=== PATIENT | female | born 1950 | race Caucasian/White ===

== ENCOUNTER 2023-11-23 13:52 | Emergency (ER) | payer MEDICARE, MEDICAID, SELFPAY ==
--- NOTE | ~2023-11-23 | XR_ITS ---
XR chest 2V Ordering provider: Kenya Tyson MD History: 73 years Female with . cough, SOB . Comparison: None. FINDINGS: MEDIASTINUM: The cardiac silhouette is not enlarged. LUNGS: No effusions or pneumothorax. Opacification the right lung bases suggestive of atelectasis guillermo loc pneumonia. OTHER: No free air under the diaphragm. Degenerative changes of the spine. IMPRESSION: Right basal pneumonia. Reviewed, dictated and finalized at location A. IMPRESSION: Right basal pneumonia.
[2023-11-23 13:54] VITALS: BP 144/69; PULSE 95; RESP 20; TEMP 37.2; O2SAT 100
[2023-11-23 14:27] VITALS: RESP 16
[2023-11-23 14:30] LABS: Strep Group A RT-PCR NOT DETECTED (Negative)
[2023-11-23 14:41] LABS: Influenza A QL RT-PCR Negative (Negative); Influenza B QL RT-PCR Negative (Negative); RSV RNA, RT-PCR Negative (Negative); SARS-CoV-2 RNA PCR Negative (Negative)
--- NOTE | 2023-11-23 14:47 | ED.FEVER ---
HPI - Fever General Chief Complaint: Fever Stated Complaint: fever Time Seen by Provider: 11/23/23 14:33 History of Present Illness HPI Narrative: 73-year-old female presenting with URI symptoms. Patient's family is at bedside and helps with history. States that she developed symptoms the dates ago. She has a sore throat, cough, nausea, generalized fatigue. States she has upper abdominal pain whenever she coughs. No chest pain or shortness of breath. No leg swelling. Related Data Allergies Allergy/AdvReac Type Severity Reaction Status Date / Time No Known Allergies Allergy Verified 11/23/23 14:16 Review of Systems Review of Systems: All systems reviewed & are unremarkable except as noted in HPI and below Exam Narrative: GENERAL: Nontoxic, no acute distress, pleasant cooperative HEAD: Normocephalic, atraumatic. EYES: PERRLA and EOMI. ENT: Mucous membranes moist. No posterior pharyngeal erythema, edema, or exudates; s/p tonsillectomy NECK: Supple. CHEST: Clear to auscultation. No respiratory distress. HEART: Regular rate and rhythm ABDOMEN: Soft, nontender, nondistended EXTREMITIES: Normal range of motion. SKIN: Warm, dry, no rash. NEURO: Alert and oriented x3. PSYCH: Normal mood and affect. Course Vital Signs Vital signs: Vital Signs Temperature 99 F 11/23/23 13:54 Pulse Rate 95 11/23/23 13:54 Respiratory Rate 20 11/23/23 13:54 Blood Pressure 144/69 H 11/23/23 13:54 Pulse Oximetry 100 11/23/23 13:54 Oxygen Delivery Room Air 11/23/23 13:54 Temperature 99 F 11/23/23 13:54 Pulse Rate 92 11/23/23 17:17 Respiratory Rate 16 11/23/23 17:17 Blood Pressure 120/77 11/23/23 17:17 Pulse Oximetry 96 11/23/23 17:17 Oxygen Delivery Room Air 11/23/23 13:54 MDM - Fever MDM Narrative Medical decision making narrative: 73-year-old female presenting with URI symptoms. Vitals are within normal limits. Exam remarkable for the above. Blood work with mild transaminitis. No other abnormalities noted. Negative for strep, influenza, COVID. Chest x-ray shows a right basilar pneumonia. Patient given a dose of doxy, Augmentin. Will send in for these as well as some Zofran. Discussed appropriate supportive care and PCP follow-up. Patient and her family are agreeable with this plan. Discharged in stable condition. Differential Diagnosis Differential diagnosis: Likely gastroenteritis, community acquired pneumonia, viral infection and influenza Medical Records Attestation: I reviewed the patient's medical records. Lab Data Attestation: I reviewed the patient's lab results. 11/23/23 14:52 11/23/23 14:52 Labs: Lab Results 11/23/23 11/23/23 Range/Units 13:59 14:52 WBC 9.8 (4.5-10.0) K/mm3 RBC 4.55 (4.2-5.4) M/mm3 Hgb 13.4 (12.0-15.0) g/dL Hct 40.3 (37.0-47.0) % MCV 88.6 (80-100) fl MCH 29.5 (26-34) pg MCHC 33.3 (32-36) g/dl RDW 13.7 (11.5-14.5) % Plt Count 176 (150-375) k/mm3 MPV 12.8 H (7.4-10.4) fl Immature Gran % (Auto) 0.2 (0-0.5) % Neut % (Auto) 82.4 H (45.5-73.1) % Lymph % (Auto) 8.4 L (18.3-44.2) % [place] % (Auto) 8.4 (2.6-8.5) % Eos % (Auto) 0.3 (0-4.4) % Baso % (Auto) 0.3 (0.2-1.2) % Lymph # (Auto) 0.82 L (0.9-3.2) K/mm3 [place] # (Auto) 0.8 H (0.1-0.6) K/mm3 Eos # (Auto) 0.0 (0-0.3) K/mm3 Baso # (Auto) 0.0 (0.0-0.1) K/mm3 Abs Immat Gran (auto) 0.02 (0.00-0.031) K/mm3 Absolute Neuts (auto) 8.1 H (1.3-6.7) K/mm3 Absolute Nucleated RBC 0.000 (0.0-0.012) K/mm3 Nucleated RBC % 0.0 (0.0-0.2) % Sodium 135 L (137-145) mmol/L Potassium 4.0 (3.4-5.0) mmol/L Chloride 103 (98-107) mmol/L Carbon Dioxide 22 (22-30) mmol/L Anion Gap 10 (4-12) mmol/L BUN 8 (7-17) mg/dL Creatinine 0.70 (0.7-1.0) mg/dL Estim Creat Clear Calc 46 ml/min Estimated GFR > 60 (59 - ) Glucose 111 H (65-110) mg/dL Calcium 9.4 (8.4-10.
[2023-11-23 14:59] LABS: Basophils Percent Auto 0.3 % (0.2-1.2); Eosinophils Percent Auto 0.3 % (0-4.4); Hematocrit 40.3 % (37.0-47.0); Hemoglobin 13.4 g/dL (12.0-15.0); Immature Granulocyte Absolute 0.02 K/mm3 (0.00-0.031); Immature Granulocyte Percent A 0.2 % (0-0.5); Lymphocytes Absolute Auto 0.82 K/mm3 (0.9-3.2); Lymphocytes Percent Auto 8.4 % (18.3-44.2); Mean Corpuscular HGB Conc 33.3 g/dl (32-36); Mean Corpuscular Hemoglobin 29.5 pg (26-34); Mean Corpuscular Volume 88.6 fl (80-100); Mean Platelet Volume 12.8 fl (7.4-10.4); Monocytes Absolute Auto 0.8 K/mm3 (0.1-0.6); Monocytes Percent Auto 8.4 % (2.6-8.5); Neutrophils Absolute Auto 8.1 K/mm3 (1.3-6.7); Neutrophils Percent Auto 82.4 % (45.5-73.1); Platelet Count Result 176 k/mm3 (150-375); Red Blood Count 4.55 M/mm3 (4.2-5.4); Red Cell Distribution Width 13.7 % (11.5-14.5); White Blood Count 9.8 K/mm3 (4.5-10.0)
[2023-11-23 15:07] LABS: Alanine Aminotransferase 93 U/L (6-35); Albumin Level 4.5 g/dL (3.5-5.1); Alkaline Phosphatase 121 U/L (38-126); Anion Gap 10 mmol/L (4-12); Aspartate Amino Transferase 90 U/L (14-36); Bilirubin,Total 0.5 mg/dL (0.2-1.3); Blood Urea Nitrogen 8 mg/dL (7-17); Calcium 9.4 mg/dL (8.4-10.2); Carbon Dioxide 22 mmol/L (22-30); Chloride 103 mmol/L (98-107); Estimated CRCL calculation 46 ml/min; Estimated Glomerular Filt Rate > 60; Glucose 111 mg/dL (65-110); Lipase 197 U/L (23-300); Sodium 135 mmol/L (137-145)
[2023-11-23] MEDS: SODIUM CHLORIDE 0.9% IV 1,000 ML 999 ML IV CONT ×2 (15:07→15:08)
[2023-11-23] MEDS: dexAMETHasone SOD PHOS INJ 10 MG/ML 1 ML VIAL IV PUSH (15:08)
[2023-11-23] MEDS: ONDANSETRON INJ 4 MG/2 ML VIAL IV PUSH (15:08)
[2023-11-23] MEDS: KETOROLAC 30 MG/ML VIAL (*BKC) IV PUSH (15:08)
[2023-11-23] MEDS: DOXYCYCLINE HYCLATE 100 MG TABLET PO (16:37)
[2023-11-23] MEDS: AMOXICILLIN/CLAVULANATE K 875-125 MG TAB 1 TABLET PO (16:37)
[2023-11-23 17:17] VITALS: BP 120/77; PULSE 92; RESP 16; O2SAT 96
== END 2023-11-23 17:20 | disposition home or self-care (01) ==
PROVIDERS: Emergency Medicine; Emergency Provider Emergency Medicine
DX: J18.9 Pneumonia, unspecified organism (principal); Z20.822 Contact with and (suspected) exposure to COVID-19
CPT/HCPCS: 36415; 71046; 80053; 83690; 85025; 87637; 87651; 96361; 96374; 96375; 99284; A9270; J1100; J1885; J2405; J7030

== ENCOUNTER 2024-07-12 14:53 | Outpatient (CLI) | payer MEDICARE, MEDICAID, SELFPAY ==
--- NOTE | ~2024-07-12 | MM_ITS ---
EXAMINATION: MM screening jeremias BI w nicky HISTORY: Screening mammogram TECHNIQUE: Craniocaudal and mediolateral oblique 3-D tomosynthesis images were obtained and synthetic 2-D images were generated. CAD analysis was submitted and interpreted. COMPARISON: No prior mammogram is available for comparison at this institution. BREAST PARENCHYMAL COMPOSITION:Not Dense. The breasts are almost entirely fatty FINDINGS: No suspicious mass, calcification, or architectural distortion are identified in either mik ast to suggest malignancy. There has been no suspicious interval change. IMPRESSION: No mammographic evidence of malignancy. Recommend routine screening mammography in one year. BI-RADS Category 1: Negative Reviewed, dictated and finalized at location .
--- OUTSIDE RECORDS SUMMARY | 2024-07-12 16:58 | XMS_ITS ---
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 [address] [place] [address] 01/20/2024 Jossue Junior Chronic kidney disea se, stage 2 (mild) N18.2 ; Essential hypertension I10 ; Type 2 diabetes mellitus with hyperglycemia E11.65 ; Renal osteodystrophy N25.0 ; Hyperlipidemia, unspecified E78.5 ; Heart failure, unspecified I50.9 and Gastro-esophageal reflux disease with esophagitis, without bleeding K21.00 ASSESSMENTS Encounter Date Diagnosis Assessment Notes Treatment Notes Treatment Clinical Notes Section Notes 01/20/2024 Chronic kidney disease, stage 2 (mild) (ICD-10 - N18.2) 01/20/2024 Essential hypertension (ICD-10 - I10) 01/20/2024 Type 2 diabetes mellitus with hyperglycemia (ICD-10 - E11.65) 01/20/2024 Renal osteodystrophy (ICD-10 - N25.0) 01/20/2024 Hyperlipidemia, unspecified (ICD-10 - E78.5) 01/20/2024 Heart failure, unspecified (ICD-10 - I50.9) 01/20/2024 Gastro-esophageal reflux disease with esophagitis, without bleeding (ICD-10 - K21.00) PLAN OF TREATMENT Next Appt Details Provider Name:Jossue Junior , 08/05/2024 01:30:00 PM, [address], [place], [address], Progress Notes * JOHN ARCINIEGADOB: [birth year] (73 yo F)Acc No.[id number]:01/20/2024 Progress Notes Patient: JOHN ARCINIEGA Provider: MD VIRGIE, F.A.C.P, F.A.S.N. :1950 Age:73 Y Sex:Female Date:01/20/2024 Address:[address] [place] [address] Subjective: * Chief Complaints: * * Medical History: * Medications: Taking Ergocalciferol 1.25 MG (48879 UT) Capsule 1 capsule Orally Once a week , stop date 04/09/2024, Taking Calcitriol 0.25 MCG Capsule TAKE 1 CAPSULE BY MOUTH EVERY DAY Objective: Assessment: * Assessment: 1. Chronic kidney disease, stage 2 (mild) - N18.2 (Primary) 2. Essential hypertension - I10 3. Type 2 diabetes mellitus with hyperglycemia - E11.65 4. Renal osteodystrophy - N25.0 5. Hyperlipidemia, unspecified - E78.5 6. Heart failure, unspecified - I50.9 7. Gastro-esophageal reflux disease with esophagitis, without bleeding - K21.00 Plan: * Treatment: * Billing Information: * Visit Code: 66516 Office Visit, Est Pt., Level 4. * Procedure Codes: * Sign off status: Pending * Provider: MD VIRGIE, Gilma.Markell.C.P, F.A.S.N. Date: 01/20/2024
--- OUTSIDE RECORDS SUMMARY | 2024-07-12 16:58 | XMS_ITS | Data Portability ---
Author Organization [facility] SADIEPo Dillard Address [address] [place] [address] Assessment No assessment recorded. Plan of Treatment Reminders Order Date Submit Date Provider Last Modified By Organization Details Last Modified Time Details Appointments None recorded. Lab HbA1c (hemoglobi n A1c), blood 2019 020 [facility], [address] [place] [address], [facility] [address], [place], [address], 0 06:21:10 vitamin D, 25-hydroxy , total, serum 2019 020 [facility], [address] [place] [address], [address], [place], [address], 0 06:21:10 vitamin B12 + folate, serum or blood 2019 020 [facility], [address] [place] [address], [facility] [address], [place], [address], 0 06:21:09 TSH + free T4, serum 2019 020 [facility], [address] [place] [address], [address], [place], [address], 0 06:21:08 CMP, serum or plasma 2019 020 [facility], [address] [place] [address], [address], [place], [address], 0 06:21:08 lipid panel, serum 2019 020 MICHELLE DAY, [address], [address], [place], [address], 0 06:21:09 CK (creatine kinase), total, serum 2019 020 MICHELLE DAY, [address], [address], [place], [address], 0 06:21:11 urinalysis , dipstick 2018 019 [email or web address] In-Office Order, Internal Use Only DO Not Attach Compendium DO Not Attach Compendium, Do Not Delete/merge, [id number] 9 12:40:50 culture, urine 2018 019 MICHELLE DAY, [address], [address], [place], [address], 9 19:07:16 vitamin D, 25-hydroxy , total, serum 2018 019 MICHELLE DAY, [address], [address], [place], [address], 9 06:18:43 TSH + free T4, serum 2018 019 MICHELLE DAY, [address], [address], [place], [address], 9 06:18:42 CBC w/ auto diff 2018 019 MICHELLE DAY, [address], [address], [place], [address], 9 06:18:42 vitamin D, 25-hydroxy , total, serum 2017 018 [facility], [address], [address], [place], [address], 8 06:17:49 TSH + free T4, serum 2017 018 [facility], [address], [address], [place], [address], 8 06:17:47 CMP, serum or plasma 2017 018 [facility], [address], [address], [place], [address], 8 06:17:48 lipid panel, serum 2017 018 [facility], [address], [address], [place], [address], 8 06:17:48 CK (creatine kinase), total, serum 2017 018 [facility], [address], [address], [place], [address], 8 06:17:49 TSH + free T4, serum 2017 018 [facility], [address], [place], [address], 8 17:15:14 CBC w/ auto diff 2017 018 [facility], [address], [place], [address], 8 17:15:14 Referral None recorded. Procedures None recorded. Surgeries None recorded. Imaging XR, chest, 2 view [address] (Imaging), [address] [place], [address], 8 17:07:09 Medication Orders ciprofloxa jose l 500 mg tablet 2019 020 [facility] [address], [address], 0 17:13:59 benzonatat e 200 mg capsule 2019 020 [facility] [address], [address], 0 17:20:47 carvedilol 6.25 mg tablet 2019 020 [facility] [address], [address], 0 17:20:50 omeprazole 20 mg capsule,de layed release 2019 020 [facility] [address], [address], 0 17:20:47 lovastatin 20 mg tablet 2019 020 [facility] [address], [address], 0 17:20:51 Macrobid 100 mg capsule 2018 019 [facility] [address], [address], 9 12:01:50 promethazi ne-DM 6.25 mg-15 mg/5 mL oral syrup 2018 019 [email or web address] [address], [address], 9 11:14:54 lovastatin 20 mg tablet 2018 019 [facility] In [facility] [address] [place] [address], [address], 9 12:09:57 Aspir-Low 81 mg tablet,del ayed release 2017 018 [facility] [address] In [facility], [address] [place] [address], [address], 8 13:11:21 ergocalcif enrrique (vitamin D2) 1,250 mcg (50,000 unit) capsule 2017 018 [facility] [address], [address], 8 13:11:16 carvedilol 6.25 mg tablet 2017 018 [facility] [address], [address], 8 13:11:19 omeprazole 20 mg capsule,de layed release 2017 018 [facility] [address], [address], 8 13:11:17 lovastatin 20 mg tablet 2017 018 [facility] [address], [address], 8 13:11:18 levocetiri zine 5 mg tablet 2017 018 [facility] [address], [address], 8 17:05:29 azithromyc in 250 mg tablet 2017 018 [email or web address] [address], [address], 8 12:53:01 Patient TargetsNo targets recorded. Patient Instructions Encounter Date Encounter Id Patient Instructions Last Modified By Organization Details Last Modified Time 12/02/2018 [id number] I have reviewed the provider's note and I agree with the documented assessment and plan. HLF [email or web address] Not available 12/02/2018 17:58:17 Reason for Referral None Reported. Results Created Date Observation Date Name Description Value Unit Range Abnormal Flag Note LastModifiedBy Organization Detail LastModifiedTime 09/04/19 18 09/04/2017 HbA1c (hemo globi n A1c), blood hemoglobin A1C 5.9 % 4.8-5. 6 above high normal Pre-d iabet es: 5.7 - 6.4 Diabe dany: >6.4 Glyce jenna contr ol for adult s with diabe dany: <7.0 Not Available [facility] ([facility]) [address] [place], [address], 09/04/2017 07:17:01 03/15/20 18 03/16/2018 TSH + free T4, serum TSH 1.450 uIU/m L 0.450- 4.500 Not Available [facility] ([facility]) [address] [place], [address], 03/16/2018 06:17:47 03/15/20 18 03/16/2018 TSH + free T4, serum T4,free(dire ct) 1.17 NG/dL 0.82-1 .77 Not Available [facility] ([facility]) [address] [place], [address], 03/16/2018 06:17:47 03/15/20 18 03/16/2018 CMP, serum or plasm a glucose 104 mg/dL 65-99 above high normal Not Available [facility] ([facility]) [address] [place], [address], 03/16/2018 06:17:48 03/15/20 18 03/16/2018 CMP, serum or plasm a BUN 14 mg/dL 8-27 Not Available [facility] ([facility]) [address] [place], [address], 03/16/2018 06:17:48 03/15/20 18 03/16/2018 CMP, serum or plasm a creatinine 0.78 mg/dL 0.57-1 .00 Not Available [facility] ([facility]) [address] [facility] [place], [address], 03/16/2018 06:17:48 03/15/20 18 03/16/2018 CMP, serum or plasm a eGFR if nonafricn AM 80 mL/mi n/1.7 3 >59 Not Available [facility] ([facility]) [address] [facility] [place], [address], 03/16/2018 06:17:48 03/15/20 18 03/16/2018 CMP, serum or plasm a eGFR if africn AM 92 mL/mi n/1.7 3 >59 Not Available [facility] ([facility]) [address] [facility], [place], [address], 03/16/2018 06:17:48 03/15/20 18 03/16/2018 CMP, serum or plasm a BUN/creatini ne ratio 18 12-28 Not Available [facility] ([facility]) [address] [place], [address], 03/16/2018 06:17:48 03/15/20 18 03/16/2018 CMP, serum or plasm a sodium 142 mmol/ L 134-14 4 Not Available [facility] ([facility]) [address] [place], [address], 03/16/2018 06:17:48 03/15/20 18 03/16/2018 CMP, serum or plasm a potassium 4.2 mmol/ L 3.5-5. 2 Not Available [facility] ([facility]) [address] [place] [address], [address], 03/16/2018 06:17:48 03/15/20 18 03/16/2018 CMP, serum or plasm a chloride 103 mmol/ L 96-106 Not Available [facility] ([facility]) [address] [facility] [place], [address], 03/16/2018 06:17:48 03/15/20 18 03/16/2018 CMP, serum or plasm a carbon dioxide, total 23 mmol/ L 20-29 Not Available [facility] ([facility]) [address] [facility] [place], [address], 03/16/2018 06:17:48 03/15/20 18 03/16/2018 CMP, serum or plasm a calcium 9.6 mg/dL 8.7-10 .3 Not Available [facility] ([facility]) [address] [facility] [place], [address], 03/16/2018 06:17:48 03/15/20 18 03/16/2018 CMP, serum or plasm a protein, total 7.1 g/dL 6.0-8. 5 Not Available [facility] ([facility]) [address] [place], [address], 03/16/2018 06:17:48 03/15/20 18 03/16/2018 CMP, serum or plasm a albumin 4.5 g/dL 3.6-4. 8 Not Available [facility] ([facility]) [address] [place], [address], 03/16/2018 06:17:48 03/15/20 18 03/16/2018 CMP, serum or plasm a globulin, total 2.6 g/dL 1.5-4. 5 Not Available [facility] ([facility]) [address] [facility] [place], [address], 03/16/2018 06:17:48 03/15/20 18 03/16/2018 CMP, serum or plasm a A/G ratio 1.7 1.2-2. 2 Not Available [facility] ([facility]) [address] [place], [address], 03/16/2018 06:17:48 03/15/20 18 03/16/2018 CMP, serum or plasm a bilirubin, total 0.5 mg/dL 0.0-1. 2 Not Available [facility] ([facility]) [address] [facility] [place], [address], 03/16/2018 06:17:48 03/15/20 18 03/16/2018 CMP, serum or plasm a alkaline phosphatase 69 IU/L 39-117 Not Available [facility] ([facility]) [address] [facility] [place], [address], 03/16/2018 06:17:48 03/15/20 18 03/16/2018 CMP, serum or plasm a AST (SGOT) 21 IU/L 0-40 Not Available [facility] ([facility]) [address] [facility] [place], [address], 03/16/2018 06:17:48 03/15/20 18 03/16/2018 CMP, serum or plasm a ALT (SGPT) 14 IU/L 0-32 Not Available [facility] ([facility]) [address] [place], [address], 03/16/2018 06:17:48 03/15/20 18 03/16/2018 lipid panel , serum cholesterol, total 180 mg/dL 100-19 9 Not Available [facility] ([facility]) [address] [place], [address], 03/16/2018 06:17:48 03/15/20 18 03/16/2018 lipid panel , serum triglyceride s 71 mg/dL 0-149 Not Available [facility] ([facility]) [address] [facility] [place], [address], 03/16/2018 06:17:48 03/15/20 18 03/16/2018 lipid panel , serum HDL cholesterol 65 mg/dL >39 Not Available [facility] ([facility]) [address] [place], [address], 03/16/2018 06:17:48 03/15/20 18 03/16/2018 lipid panel , serum VLDL cholesterol shame[place] 14 mg/dL 5-40 Not Available [facility] ([facility]) [address] [facility] [place], [address], 03/16/2018 06:17:48 03/15/20 18 03/16/2018 lipid panel , serum LDL cholesterol calc 101 mg/dL 0-99 above high normal Not Available [facility] ([facility]) [address] [facility] [place], [address], 03/16/2018 06:17:48 03/15/20 18 03/16/2018 lipid panel , serum comment: 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 2 LDL/H DL Ratio Men Women 1/2 Avg.R isk 1.0 1.5 Avg.R isk 3.6 3.2 2X Avg.R isk 6.2 5.0 3X Avg.R isk 8.0 6.1 Not Available [facility] ([facility]) [address] [place], [address], 03/16/2018 06:17:48 03/15/20 18 03/16/2018 vitam in D, 25-hy droxy , total , serum vitamin D, 25-hydroxy 31.3 NG/mL 30.0-1 00.0 Vitam in D defic iency has been defin ed by the Insti tute of Medic ine and an Endoc rine Socie ty pract ice guide line as a level of serum 25-OH vitam in D less than 20 ng/mL (1,2) . The Endoc rine Socie ty went on to furth er defin e vitam in D insuf ficie ncy as a level betwe en 21 and 29 ng/mL (2). 1. IOM (Inst itute of Medic ine). 2010. Dieta ry refer ence ximena es for calci um and DLeah almodovar [place]: [facility] . 2. Carlee pinto MF, Binbari ey [place], Bisch off-F errar i LIN, et al. Evalu ation , treat ment, and preve ntion of vitam in D defic iency : an Endoc rine Socie ty clini [place] pract ice guide line. JCEM. 2010; 96(7) :1911 -30. Not Available [facility] ([facility]) [address] [place], [address], 03/16/2018 06:17:49 03/15/20 18 03/16/2018 CK (crea jany kinas e), total , serum creatine kinase,total 72 U/L 24-173 Not Available [facility] ([facility]) [address] [place], [address], 03/16/2018 06:17:49 06/10/1906/11/2018 TSH + free T4, serum TSH 1.910 uIU/m L 0.450- 4.500 Not Available [facility] ([facility]) [address] [place], [address], 06/11/2018 06:18:42 06/10/1906/11/2018 TSH + free T4, serum T4,free(dire ct) 1.20 NG/dL 0.82-1 .77 Not Available [facility] ([facility]) [address] [place], [address], 06/11/2018 06:18:42 06/10/1906/11/2018 CBC w/ auto diff WBC 6.4 x10e3 /uL 3.4-10 .8 Not Available [facility] ([facility]) [address] [place], [address], 06/11/2018 06:18:42 06/10/1906/11/2018 CBC w/ auto diff RBC 4.69 x10e6 /uL 3.77-5 .28 Not Available [facility] ([facility]) [address] [place], [address], 06/11/2018 06:18:42 06/10/19 19 06/11/2018 CBC w/ auto diff hemoglobin 14.0 g/dL 11.1-1 5.9 Not Available [facility] ([facility]) [address] [place], [address], 06/11/2018 06:18:42 06/10/1906/11/2018 CBC w/ auto diff hematocrit 42.8 % 34.0-4 6.6 Not Available [facility] ([facility]) [address] [place], [address], 06/11/2018 06:18:42 06/10/1906/11/2018 CBC w/ auto diff MCV 91 fL 79-97 Not Available [facility] ([facility]) [address] [place], [address], 06/11/2018 06:18:42 06/10/1906/11/2018 CBC w/ auto diff MCH 29.9 pg 26.6-3 3.0 Not Available [facility] ([facility]) [address] [place], [address], 06/11/2018 06:18:42 06/10/1906/11/2018 CBC w/ auto diff MCHC 32.7 g/dL 31.5-3 5.7 Not Available [facility] ([facility]) [address] [place], [address], 06/11/2018 06:18:42 06/10/1906/11/2018 CBC w/ auto diff RDW 13.5 % 12.3-1 5.4 Not Available [facility] ([facility]) [address] [place], [address], 06/11/2018 06:18:42 06/10/19 19 06/11/2018 CBC w/ auto diff platelets 301 x10e3 /uL 150-37 9 Not Available [facility] ([facility]) [address] [facility], [place], [address], 06/11/2018 06:18:42 06/10/19 19 06/11/2018 CBC w/ auto diff neutrophils 56 % not estab. Not Available [facility] ([facility]) [address] [facility], [place], [address], 06/11/2018 06:18:42 06/10/1906/11/2018 CBC w/ auto diff lymphs 32 % not estab. Not Available [facility] ([facility]) [address] [facility], [place], [address], 06/11/2018 06:18:42 06/10/1906/11/2018 CBC w/ auto diff monocytes 11 % not estab. Not Available [facility] ([facility]) [address] [facility], [place], [address], 06/11/2018 06:18:42 06/10/1906/11/2018 CBC w/ auto diff eos 1 % not estab. Not Available [facility] ([facility]) [address] [facility], [place], [address], 06/11/2018 06:18:42 06/10/1906/11/2018 CBC w/ auto diff basos 0 % not estab. Not Available [facility] ([facility]) [address] [facility], [place], [address], 06/11/2018 06:18:42 06/10/1906/11/2018 CBC w/ auto diff immature cells TECHNICAL BUSINESS SYSTEMS ANALYST Not Available [facility] ([facility]) [address] [facility], [place], [address], 06/11/2018 06:18:42 06/10/1906/11/2018 CBC w/ auto diff neutrophils (absolute) 3.6 x10e3 /uL 1.4-7. 0 Not Available [facility] ([facility]) [address] [place], [address], 06/11/2018 06:18:42 06/10/19 19 06/11/2018 CBC w/ auto diff lymphs (absolute) 2.0 x10e3 /uL 0.7-3. 1 Not Available [facility] ([facility]) [address] [place], [address], 06/11/2018 06:18:42 06/10/1906/11/2018 CBC w/ auto diff monocytes(ab solute) 0.7 x10e3 /uL 0.1-0. 9 Not Available [facility] ([facility]) [address] [place], [address], 06/11/2018 06:18:42 06/10/1906/11/2018 CBC w/ auto diff eos (absolute) 0.0 x10e3 /uL 0.0-0. 4 Not Available [facility] ([facility]) [address] [place], [address], 06/11/2018 06:18:42 06/10/1906/11/2018 CBC w/ auto diff baso (absolute) 0.0 x10e3 /uL 0.0-0. 2 Not Available [facility] ([facility]) [address] [place], [address], 06/11/2018 06:18:42 06/10/1906/11/2018 CBC w/ auto diff immature granulocytes 0 % not estab. Not Available [facility] ([facility]) [address] [place], [address], 06/11/2018 06:18:42 06/10/1906/11/2018 CBC w/ auto diff immature grans (abs) 0.0 x10e3 /uL 0.0-0. 1 Not Available [facility] ([facility]) [address] [facility], [place], [address], 06/11/2018 06:18:42 06/10/1906/11/2018 CBC w/ auto diff NRBC TECHNICAL BUSINESS SYSTEMS ANALYST Not Available [facility] ([facility]) [address] [facility], [place], [address], 06/11/2018 06:18:42 06/10/1906/11/2018 CBC w/ auto diff hematology comments: TECHNICAL BUSINESS SYSTEMS ANALYST Not Available [facility] ([facility]) [address] [facility], [place], [address], 06/11/2018 06:18:42 06/10/1906/11/2018 vitam in D, 25-hy droxy , total , serum vitamin D, 25-hydroxy 27.7 NG/mL 30.0-1 00.0 below low normal Vitam in D defic iency has been defin ed by the Insti tute of Medic ine and an Endoc rine Socie ty pract ice guide line as a level of serum 25-OH vitam in D less than 20 ng/mL (1,2) . The Endoc rine Socie ty went on to furth er defin e vitam in D insuf ficie ncy as a level betwe en 21 and 29 ng/mL (2). 1. IOM (Inst itute of Medic ine). 2009. Hal ry refer ence ximena es for calci um and D. Maylin almodovar [place]: The Natio nal [facility] Press . 2. Carlee pinto MF, Haider cole [place], Salazar off-F errar i LIN, et al. Evalu ation , treat ment, and preve ntion of vitam in D defic iency : an Endoc rine Socie ty clini [place] pract ice guide line. JCEM. 2010; 96(7) :1911 -30. Not Available [facility] ([facility]) [address] [facility], [place], [address], 06/11/2018 06:18:43 12/03/1912/03/2018 no test indic ated . Commdorys t A urine was recei lisseth with no test indic ated Not Available [facility] ([facility]) [address], [place], [address], 12/03/2018 17:08:28 12/03/19 19 12/03/2018 no test indic ated dear doctor, Brent ellsworth The requi sitio n we recei lisseth for the above patie nt has no test indic ated on the reque st form for one or more of the speci mens submi tted. [place] Code of [place] Regul ation s requi res a writt en and kenisha d reque st be forwa rded to the testi ng labor atory follo wing the verba l order of a labor atory test. Date: ___ ICD- Diagn osis Code( s):__ _ Physi demi or Autho rized Desjimmie nee Signa ture: Your signa ture confi angelica your order of the test( s) liste d Requi red test name( s):__ _ Requi red test numbe r(s): _ Pleas e provi de reque sted infor ariadna reddy and fax to [phone] or [phone] to exped billye melissa reid. Not Available [facility] ([facility]) [address] [facility], [place], [address], 12/03/2018 17:08:28 12/03/19 19 12/05/2018 cultu re, urine urine culture, routine Final report abnormal Not Available [facility] ([facility]) [address] [facility], [place], [address], 12/05/2018 19:07:16 12/03/1912/05/2018 cultu re, urine result 1 Escher ichia coli abnormal Great er than 100,0 00 colon y formi ng units per mL Cefaz suzette <=4 ug/mL Cefaz suzette with an JENNA <=16 predi cts susce ptibi lity to the oral agent s cefac diana, cefdi laury, cefpo doxim e, cefpr ozil, cefur oxime , cepha lexin , and lorac arbef when used for thera py of uncom plica natacha urina ry tract infec tions due to E. coli, Klebs iella pneum oniae , and Prote us mirab ilis. Not Available [facility] ([facility]) [address] [facility], [place], [address], 12/05/2018 19:07:16 12/03/19 19 12/05/2018 cultu re, urine antimicrobia l susceptibili ty Commen t S = Susce ptibl e; I = Inter media te; R = Resis tant P = Posit derek; N = Negat derek MICS are expre ssed in micro grams per mL Antib iotic RSLT# 1 RSLT# 2 RSLT# 3 RSLT# 4 Amoxi cilli n/Cla vulan ic Acid S Ampic illin R Cefep brenda S Ceftr iaxon e S Cefur oxime S Cipro floxa jose l S Ertap enem S Genta micin S Imipe nem S Levof loxac in S Merop enem S Nitro furan toin S Piper acill in/Ta zobac rene S Tetra cycli ne S Tobra mycin S Trime thopr im/Maldonado lfa R Not Available [facility] ([facility]) [address] [facility], [place], [address], 12/05/2018 19:07:16 12/03/1912/02/2018 urina lysis , dipst ick Leukocytes Large Not Available In-Offi ce Order Internal Use Only DO Not Attach Compendium DO Not Attach Compendium, Do Not Delete/merge, [id number] 12/02/2018 11:41:06 12/03/1912/02/2018 urina lysis , dipst ick Nitrite negati ve Not Available In-Office Order Internal Use Only DO Not Attach Compendium DO Not Attach Compendium, Do Not Delete/merge, [id number] 12/02/2018 11:41:06 12/03/1912/02/2018 urina lysis , dipst ick Urobilinogen .2 Not Available In-Of fice Order Internal Use Only DO Not Attach Compendium DO Not Attach Compendium, Do Not Delete/merge, [id number] 12/02/2018 11:41:06 12/03/1912/02/2018 urina lysis , dipst ick Protein Negati ve Not Available In-Office Order Internal Use Only DO Not Attach Compendium DO Not Attach Compendium, Do Not Delete/merge, [id number] 12/02/2018 11:41:06 12/03/1912/02/2018 urina lysis , dipst ick pH 6.0 Not Available In-Office Order Internal Use Only DO Not Attach Compendium DO Not Attach Compendium, Do Not Delete/merge, [id number] 12/02/2018 11:41:12/03/1912/02/2018 urina lysis , dipst ick Blood Non-He molyze d: Trace Not Available In-Office Order Internal Use Only DO Not Attach Compendium DO Not Attach Compendium, Do Not Delete/merge, [id number] 12/02/2018 11:41:06 12/03/1912/02/2018 urina lysis , dipst ick Specific [place] 1.005 Not Available In-Off ice Order Internal Use Only DO Not Attach Compendium DO Not Attach Compendium, Do Not Delete/merge, [id number] 12/02/2018 11:41:06 12/03/1912/02/2018 urina lysis , dipst ick Ketone Negati ve Not Available In-Office Order Internal Use Only DO Not Attach Compendium DO Not Attach Compendium, Do Not Delete/merge, [id number] 12/02/2018 11:41:06 12/03/1912/02/2018 urina lysis , dipst ick Bilirubin Negati ve Not Available In-Office Order Internal Use Only DO Not Attach Compendium DO Not Attach Compendium, Do Not Delete/merge, [id number] 12/02/2018 11:41:06 12/03/19 19 12/02/2018 urina lysis , dipst ick Glucose Negati ve Not Available In-Office Order Internal Use Only DO Not Attach Compendium DO Not Attach Compendium, Do Not Delete/merge, [id number] 12/02/2018 11:41:06 12/03/1912/02/2018 urina lysis , dipst ick Appearance Slight ly Cloudy Not Available In-Office Order Internal Use Only DO Not Attach Compendium DO Not Attach Compendium, Do Not Delete/merge, [id number] 12/02/2018 11:41:06 12/03/1912/02/2018 urina lysis , dipst ick Color Yellow Not Available In-Office Order Internal Use Only DO Not Attach Compendium DO Not Attach Compendium, Do Not Delete/merge, [id number] 12/02/2018 11:41:06 06/06/1906/07/2019 TSH + free T4, serum TSH 1.260 uIU/m L 0.450- 4.500 Not Available [facility] ([facility]) [address] [facility] [address], [place], [address], 06/07/2019 06:21:08 06/06/1906/07/2019 TSH + free T4, serum T4,free(dire ct) 1.01 NG/dL 0.82-1 .77 Not Available [facility] ([facility]) [address] [place], [address], 06/07/2019 06:21:08 06/06/1906/07/2019 CMP, serum or plasm a glucose 113 mg/dL 65-99 above high normal Not Available [facility] ([facility]) [address] [facility] [place], [address], 06/07/2019 06:21:08 06/06/1906/07/2019 CMP, serum or plasm a BUN 16 mg/dL 8-27 Not Available [facility] ([facility]) [address] [place], [address], 06/07/2019 06:21:08 06/06/1906/07/2019 CMP, serum or plasm a creatinine 0.87 mg/dL 0.57-1 .00 Not Available [facility] ([facility]) [address] [place], [address], 06/07/2019 06:21:08 06/06/1906/07/2019 CMP, serum or plasm a eGFR if nonafricn AM 70 mL/mi n/1.7 3 >59 Not Available [facility] ([facility]) [address] [place], [address], 06/07/2019 06:21:08 06/06/1906/07/2019 CMP, serum or plasm a eGFR if africn AM 80 mL/mi n/1.7 3 >59 Not Available [facility] ([facility]) [address] [place], [address], 06/07/2019 06:21:08 06/06/1906/07/2019 CMP, serum or plasm a BUN/creatini ne ratio 18 12-28 Not Available [facility] ([facility]) [address] [place], [address], 06/07/2019 06:21:08 06/06/1906/07/2019 CMP, serum or plasm a sodium 142 mmol/ L 134-14 4 Not Available [facility] ([facility]) [address] [place], [address], 06/07/2019 06:21:08 06/06/1906/07/2019 CMP, serum or plasm a potassium 4.9 mmol/ L 3.5-5. 2 Not Available [facility] ([facility]) [address] [place], [address], 06/07/2019 06:21:08 06/06/1906/07/2019 CMP, serum or plasm a chloride 105 mmol/ L 96-106 Not Available [facility] ([facility]) [address] [place], [address], 06/07/2019 06:21:08 06/06/1906/07/2019 CMP, serum or plasm a carbon dioxide, total 22 mmol/ L 20-29 Not Available [facility] ([facility]) [address] [place], [address], 06/07/2019 06:21:08 06/06/1906/07/2019 CMP, serum or plasm a calcium 10.0 mg/dL 8.7-10 .3 Not Available [facility] ([facility]) [address] [place], [address], 06/07/2019 06:21:08 06/06/1906/07/2019 CMP, serum or plasm a protein, total 7.4 g/dL 6.0-8. 5 Not Available [facility] ([facility]) [address] [place], [address], 06/07/2019 06:21:08 06/06/1906/07/2019 CMP, serum or plasm a albumin 4.4 g/dL 3.8-4. 8 Ple ase note refer ence braden sullivan e Not Available [facility] ([facility]) [address] [place], [address], 06/07/2019 06:21:08 06/06/19 20 06/07/2019 CMP, serum or plasm a globulin, total 3.0 g/dL 1.5-4. 5 Not Available [facility] ([facility]) [address] [place], [address], 06/07/2019 06:21:08 06/06/19 20 06/07/2019 CMP, serum or plasm a A/G ratio 1.5 1.2-2. 2 Not Available [facility] ([facility]) [address] [place], [address], 06/07/2019 06:21:08 06/06/19 20 06/07/2019 CMP, serum or plasm a bilirubin, total 0.6 mg/dL 0.0-1. 2 Not Available [facility] ([facility]) [address] [place], [address], 06/07/2019 06:21:08 06/06/19 20 06/07/2019 CMP, serum or plasm a alkaline phosphatase 83 IU/L 39-117 Not Available [facility] ([facility]) [address] [place], [address], 06/07/2019 06:21:08 06/06/19 20 06/07/2019 CMP, serum or plasm a AST (SGOT) 22 IU/L 0-40 Not Available [facility] ([facility]) [address] [place], [address], 06/07/2019 06:21:08 06/06/1906/07/2019 CMP, serum or plasm a ALT (SGPT) 22 IU/L 0-32 Not Available [facility] ([facility]) [address] [place], [address], 06/07/2019 06:21:08 06/06/19 20 06/07/2019 lipid panel , serum cholesterol, total 195 mg/dL 100-19 9 Not Available [facility] ([facility]) [address] [facility] [place], [address], 06/07/2019 06:21:09 06/06/19 20 06/07/2019 lipid panel , serum triglyceride s 106 mg/dL 0-149 Not Available [facility] ([facility]) [address] [place], [address], 06/07/2019 06:21:09 06/06/19 20 06/07/2019 lipid panel , serum HDL cholesterol 59 mg/dL >39 Not Available [facility] ([facility]) [address] [facility] [place], [address], 06/07/2019 06:21:09 06/06/19 20 06/07/2019 lipid panel , serum VLDL cholesterol [place] 21 mg/dL 5-40 Not Available [facility] ([facility]) [address] [place], [address], 06/07/2019 06:21:09 06/06/19 20 06/07/2019 lipid panel , serum LDL cholesterol calc 115 mg/dL 0-99 above high normal Not Available [facility] ([facility]) [address] [place], [address], 06/07/2019 06:21:09 06/06/19 20 06/07/2019 lipid panel , 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 2 LDL/H DL Ratio Men Women 1/2 Avg.R isk 1.0 1.5 Avg.R isk 3.6 3.2 2X Avg.R isk 6.2 5.0 3X Avg.R isk 8.0 6.1 Not Available [facility] ([facility]) [address] [place], [address], 06/07/2019 06:21:09 06/06/19 20 06/07/2019 vitam in B12 + folat e, serum or blood vitamin B12 672 pg/mL 232-12 45 Not Available [facility] ([facility]) [address], [place], [address], 06/07/2019 06:21:09 06/06/1906/07/2019 vitam in B12 + folat e, serum or blood folate (folic acid), serum 15.2 NG/mL >3.0 A serum folat e rickie ntrat ion of less than 3.1 ng/mL is consi dered to repre sent clini [place] defic iency . Not Available [facility] ([facility]) [address], [place], [address], 06/07/2019 06:21:09 06/06/1906/06/2019 HbA1c (hemo globi n A1c), blood hemoglobin A1C 5.8 % 4.8-5. 6 above high normal Predi abete s: 5.7 - 6.4 Diabe dany: >6.4 Glyce jenna contr ol for adult s with diabe dany: <7.0 Not Available [facility] ([facility]) [address], [place], [address], 06/07/2019 06:21:10 06/06/1906/07/2019 vitam in D, 25-hy droxy , total , serum vitamin D, 25-hydroxy 21.6 NG/mL 30.0-1 00.0 below low normal Vitam in D defic iency has been defin ed by the Insti tute of Medic ine and an Endoc rine Socie ty pract ice guide line as a level of serum 25-OH vitam in D less than 20 ng/mL (1,2) . The Endoc rine Socie ty went on to furth er defin e vitam in D insuf ficie ncy as a level betwe en 21 and 29 ng/mL (2). 1. IOM (Inst itute of Medic ine). 2009. Dieta ry refer ence intak es for calci um and D. Maylin almodovar [place]: [facility] Press . 2. Carlee pinto MF, Haider cole [place], Salazar off-F errar i LIN, et al. Evalu ation , treat ment, and preve ntion of vitam in D defic iency : an Endoc rine Socie ty clini [place] pract ice guide line. JCEM. 2010; 96(7) :1911 -30. Not Available [facility] ([facility]) [address] [facility] [address], [place], [address], 06/07/2019 06:21:10 06/06/19 20 06/07/2019 CK (crea jany kinas e), total , serum creatine kinase,total 76 U/L 24-173 Not Available [facility] ([facility]) [address] [facility] [address], [place], [address], 06/07/2019 06:21:11 06/01/19 19 05/31/2018 XR, chest , 2 view No observ ation record ed. [facility] (Imaging) [address] [place], [address], 06/08/2018 09:30:39 06/07/19 19 06/07/2018 trans -thor acic echoc ardio gram (TTE) (PROC ) No observ ation record ed. [facility] [address], [place], [address], 06/14/2018 14:51:20 12/13/19 20 12/13/2019 DEXA, axial skele ton No observ ation record ed. [address] (Imaging) [address] [place], [address], 01/17/2020 11:37:49 12/13/19 20 12/13/2019 MAMMO , scree petra, bilat eral No observ ation record ed. [address] (Imaging) [address] [place], [address], 01/17/2020 11:37:25 07/17/19 21 07/16/2020 XR, cervi shame[place] spine No observ ation record ed. [email or web address] [facility] [address] [place], [address], 07/19/2020 18:24:24 Result Notes None recorded. Problems Name Problem SNOMED Code Status Onset Date Resolution Date Notes Provider Name and Address Organization Details Recorded Time Cough 52646930 Active 2016 Not Available [facility] 2 13:59:03 Allergic rhinitis 25965337 Active 2017 Not Available [facility] 2 13:59:02 Laryngit is 03513688 Active 2017 Not Available [facility] 2 13:59:02 Fatigue 19146812 Active 2017 Not Available [facility] 2 13:59:02 High hemoglob in A1c level 692029824 Active 2017 Not Available [facility] 2 13:59:02 Cerebrov ascular accident 937854875 Completed 201806/10/2018 Mateo Rangel PA-C Attn: Accounting ,[address] [place], [address] , [place] - [facility] 9 11:54:50 Administ ration of tetanus vaccine Active 2018 Not Available [facility] 2 13:59:02 Administ ration of pneumoco ccal vaccine Active 2018 Not Available [facility] 2 13:59:02 Acute sinusiti s 69460961 Active 2019 Not Available [facility] 2 13:59:02 [facility] 07827168 Active Not Available [facility] 2 13:59:02 Gastroes ophageal reflux disease 126251166 Active Not Available [facility] 2 13:59:02 Low back pain 910134041 Active Not Available [facility] 2 13:59:02 Hyperlip idemia 14608899 Active Not Available [facility] 2 13:59:02 Hypergly cemia 40276189 Active Not Available [facility] 2 13:59:02 Osteopen ia 022013153 Active see bone density 0 Not Available [facility] 2 13:59:02 Vitamin D deficien cy 10059215 Active Not Available [facility] 2 13:59:02 Orthosta tic hypotens ion 87100332 Active Not Available [facility] 2 13:59:02 Upper abdomina l pain 12369697 Active Not Available [facility] 2 13:59:02 Palpitat ions 37625603 Active Not Available [facility] 2 13:59:02 Screenin g for malignan t neoplasm of colon Active 2016 Not Available [facility] 2 13:59:02 Problem Notes None recorded. Procedures Surgical History Date Name Laterality Status Provider Name and Address Organization Details Recorded Time Tonsillectomy completed Aubrey Felder [place] [facility] 06/05/2015 11:53:48 Imaging Results Imaging Date Name Status LastModified by Organization Details LastModified Time 05/31/2018 XR, chest, 2 view completed [facility] (Imaging) [address] [place], [address], 06/08/2018 09:30:39 06/07/2018 trans-thoracic echocardiogram (TTE) (PROC) completed [facility] [address], [place], [address], 06/14/2018 14:51:20 12/13/2019 DEXA, axial skeleton completed [address] (Imaging) [address] [place], [address], 01/17/2020 11:37:49 12/13/2019 MAMMO, screening, bilateral completed [address] (Imaging) [address] [place], [address], 01/17/2020 11:37:25 07/16/2020 XR, cervical spine completed [address] [place], [address], 07/19/2020 18:24:24 Procedure Notes None recorded. Medical Equipment None Reported. Allergies Allergen ID Allergen Name Allergen Category Reaction Reaction Severity Criticality Documentation Date Start Date Code Code System Note Provider Name and Address Organization Details Recorded Time 50607 simvastat in medicatio n arthralgi a (joint pain) moderate Not available 07/18/2015 84114 RxNorm Not Available Not Available Not Available Medications Name Sig Start Date Stop Date Status Note LastModified by Organization Details LastModified Time promethazin e-DM 6.25 mg-15 mg/5 mL oral syrup Take 5 mL every 6 hours by oral route for 10 days. 12/02 completed Not Available Not Available Not Available carvedilol 6.25 mg tablet TAKE ONE TABLET BY MOUTH TWICE A DAY WITH FOOD 2019 active Not Available Not Available Not Avai lable nitroglycer in 400 mcg/spray translingua l aerosol [place] by transling ual route. 08/19 completed Not Available Not Available Not Available cetirizine 10 mg tablet Take 1 tablet every day by oral route for 30 days. 12/02 completed Not Available Not Available Not Available azithromyci n 250 mg tablet TAKE 2 TABLETS (500 MG) BY ORAL ROUTE ONCE DAILY FOR 1 DAY THEN 1 TABLET (250 MG) BY ORAL ROUTE ONCE DAILY FOR 4 DAYS 12/29 completed Not Available Not Available Not Available benzonatate 200 mg capsule Take 1 capsule 3 times a day by oral route for 10 days. 2019 active Not Available Not Available Not Avai lable Aspir-Low 81 mg tablet,yesica yed release Take 1 tablet every day by oral route before meals for 30 days. 2017 active Not Available Not Available Not Avai lable ciprofloxac in 500 mg tablet Take 1 tablet every 12 hours by oral route for 10 days. 2019 active Not Available Not Available Not Avai lable bisoprolol fumarate 5 mg tablet Take 0.5mg tablet PO daily 08/19 completed Not Available Not Available Not Available alprazolam 0.5 mg tablet active Not Available Not Available Not Available Vitamin D3 10 mcg (400 unit) tablet Take 1 tablet every day by oral route. 06/10 completed Not Available Not Available Not Available omeprazole 20 mg capsule,del ayed release TAKE ONE CAPSULE BY MOUTH ONCE DAILY BEFORE A MEAL 2019 active Not Available Not Available Not Avai lable ergocalcife rol (vitamin D2) 1,250 mcg (50,000 unit) capsule TAKE 1 CAPSULE ONCE WEEKLY 2017 active Not Available Not Available Not Avai lable levofloxaci n 500 mg tablet 12/02 completed Not Available Not Available Not Available lovastatin 20 mg tablet TAKE ONE TABLET BY MOUTH ONCE DAILY 2019 active Not Available Not Available Not Avai lable Ventolin HFA 90 mcg/actuati on aerosol inhaler active Not Available Not Available Not Available Crestor 5 mg tablet Take 1 tablet every day by oral route at bedtime. 08/19 completed Not Available Not Available Not Available nitrofurant oin monohydrate /macrocryst als 100 mg capsule Take 1 capsule every 12 hours by oral route as directed for 5 days. active Not Available Not Available No t Available levocetiriz ine 5 mg tablet Take 1 tablet every day by oral route. active Not Available Not Available No t Available Vitals Date Recorded Body height Body mass index (BMI) Body weight Heart rate Body temperature Oxygen saturation Oxygen saturation in Arterial blood by Pulse oximetry Systolic blood pressure Diastolic blood pressure Provider Name and Address Organization Details Last Updated DateTime 8 152.4 cm 25.5 kg/m2 28597.8 8 g 72 /min 98 [degF] 97 % 97 % 110 mm[Hg] 74 mm[Hg] Birdie Bautista MA [place] - [facility] 8 16:37:14 Date Recorded Body height Body mass index (BMI) Body weight Oxygen saturation Oxygen saturation in Arterial blood by Pulse oximetry Heart rate Body temperature Systolic blood pressure Diastolic blood pressure Provider Name and Address Organization Details Last Updated DateTime 8 152.4 cm 24.6 kg/m2 12274.9 2 g 97 % 97 % 65 /min 98.6 [degF] 114 mm[Hg] 70 mm[Hg] Chey Milton MA [facility] 8 12:57:07 Date Recorded Body height Body mass index (BMI) Body weight Oxygen saturation Oxygen saturation in Arterial blood by Pulse oximetry Heart rate Body temperature Systolic blood pressure Diastolic blood pressure Provider Name and Address Organization Details Last Updated DateTime 9 152.4 cm 25.4 kg/m2 92489.4 4 g 97 % 97 % 76 /min 98.9 [degF] 100 mm[Hg] 66 mm[Hg] Chey Milton MA [facility] 9 11:42:49 Date Recorded Body height Body mass index (BMI) Body weight Heart rate Body temperature Oxygen saturation Oxygen saturation in Arterial blood by Pulse oximetry Systolic blood pressure Diastolic blood pressure Provider Name and Address Organization Details Last Updated DateTime 9 152.4 cm 25.2 kg/m2 94748.8 2 g 85 /min 98.3 [degF] 96 % 96 % 102 mm[Hg] 70 mm[Hg] Willa Larkin MA [facility] 9 11:28:18 Date Recorded Body height Body mass index (BMI) Body weight Oxygen saturation Oxygen saturation in Arterial blood by Pulse oximetry Heart rate Body temperature Systolic blood pressure Diastolic blood pressure Provider Name and Address Organization Details Last Updated DateTime 0 152.4 cm 25.5 kg/m2 78116.8 8 g 97 % 97 % 85 /min 98.9 [degF] 126 mm[Hg] 60 mm[Hg] Radha Resendiz MA [facility] 0 17:07:15 Social History Question Answer Notes LastModified by Organizat ion Details LastModified Time Tobacco Smoking Status Never Smoker Aubrey Felder MA null, [facility] 06/05/2015 11:53:48 What Was The Date Of Your Most Recent Tobacco Screening? 05/09/2019 [email or web address] Information not available 05/09/2019 Sex: Unknown Functional Status None recorded. Mental Status None recorded. Family History Nothing Reported. Medical History Condition Response Acid Reflux (GERD) Y Stroke Y High Cholesterol Y Gynecological HistoryNo gynecological history recorded. Obstetrics History GPAL:G 0 P 0 0 0 0 Immunizations Vaccine Type Date Status Note Provider Nam e and Address Organization Details Recorded Time Tdap 9 completed Not Available [facility] 05/21/2019 02:36:59 pneumococcal polysaccharide PPV23 9 completed Not Available [facility] 05/21/2019 02:43:42 Past Encounters Encounter ID Performer Location Encounter Start Date Encounter Closed Date Diagnosis/Indication Diagnosis SNOMED-CT Code Diagnosis ICD10 Code Diagnosis Note [id number] Julia Zachery Gallardo (Adult Med) [address] [place] [address] [phone] 0 06/05/2015 10:24:27 06/05/2015 17:27:00 Essential hypertension 58530045 I10 Gastroesop hageal reflux disease 224548548 K21.9 Low back pain 075920044 M54.5 History of cerebrovascular accident 542968982 Z86.73 Screening for malignant neoplasm of breast 634202477 Z12.39 Screening for osteoporosis 801585283 Z13.820 Hyperlipidemia 47019197 E78.5 [id number] Etta Pena is Sami (Adult Med) [address] [place] [address] [id number] 0 07/18/2015 10:09:28 07/18/2015 18:20:02 Essential hypertension 25231943 I10 Hyperglycemia 97392842 R 73.9 Hyperlipidemia 26052673 E78.5 Osteopenia 073047169 M85 .80 Discussed OTC Ca ++ supplement [id number] MD Sami Kay (Adult Med) [address] [place] [address] [phone] 0 10/24/2015 16:02:45 10/24/2015 18:06:50 Essential hypertension 93754254 I10 Vitamin D deficiency 347 72493 E55.9 [id number] MD Sami Kay (Adult Med) [address] [place] [address] [id number] 0 01/16/2016 10:27:43 01/16/2016 17:58:57 Orthostatic hypotension 92176426 I95.1 Pt accompanie d by daughter. She was referred to ER for more extensive evaluation Upper abdominal pain 831 09160 R10.13 [id number] Etta Pena is Sami (Adult Med) [address] [place] [address] [phone] 0 01/29/2016 11:55:50 01/29/2016 18:26:49 Palpitations 87835181 R00.2 Hyperglycemia 67032709 R 73.9 Vitamin D deficiency 347 71218 E55.9 [id number] MD Sami Kay (Adult Med) [address] [place] [address] [id number] 0 08/19/2016 12:18:17 08/19/2016 13:26:08 Gastroesophageal reflux disease 246979512 K21.9 Essential hypertension 95307523 I10 Palpitations 43295033 R0 0.2 Hyperlipidemia 72567454 E78.5 [id number] MD Sami Kay (Adult Med) [address] [place] [address] [id number] 0 12/16/2016 11:15:31 12/18/2016 15:36:41 Essential hypertension 63972417 I10 Palpitations 21885925 R0 0.2 Vitamin D deficiency 347 33658 E55.9 Gastroesop hageal reflux disease 219639286 K21.9 Hyperlipidemia 69119322 E78.5 Osteopenia 445837653 M85 .80 Discussed OTC Ca ++ supplement Screening for malignant neoplasm of colon 794903737 Z12.11 Refuses colonoscop y [id number] MD Sami Kay (Adult Med) [address] [place] [address] [id number] 0 03/18/2017 10:47:49 03/18/2017 13:10:08 Cough 65348427 R05 Vitamin D deficiency 347 33830 E55.9 Hyperglycemia 75961858 R 73.9 [id number] MD Sami Kay (Adult Med) [address] [place] [address] [id number] 0 05/07/2017 16:04:16 05/11/2017 11:28:41 Allergic rhinitis 19282487 J30.9 Laryngitis 25047935 J04. 0 Cough 24368968 R05 Fatigue 52356810 R53.83 [id number] OTONIEL Angeles (Adult Med) [address] [place] [address] [phone] 0 12/29/2017 12:23:21 12/30/2017 10:22:59 Essential hypertension 38619438 I10 Hyperlipidemia 94697684 E78.5 Vitamin D deficiency 347 95757 E55.9 Gastroesop hageal reflux disease 202717330 K21.0 Palpitations 23019057 R0 0.2 High hemog lobin A1c level 975438104 R73.09 Osteopenia 697998910 M85 .80 [id number] OTONIEL Angeles (Adult Med) [address] [place] [address] [id number] 0 06/10/2018 10:47:05 06/11/2018 14:11:33 Hyperlipidemia 87320016 E78.5 Cough 19906858 R05 Vitamin D deficiency 347 38454 E55.9 Administra tion of tetanus vaccine 367154716 Z23 Administra tion of pneumococcal vaccine 41088086 Z23 High hemog lobin A1c level 140675159 R73.09 Gastroesop hageal reflux disease 954108331 K21.0 Essential hypertension 55052622 I10 Allergic rhinitis 741171 04 J30.1 Osteopenia 123680303 M85 .80 Low back pain 653217027 M54.5 [id number] MD Sami Brooks (Adult Med) [address] [place] [address] [id number] 0 12/02/2018 11:11:24 12/03/2018 09:22:18 Urinary tract infectious disease 39649836 N39.0 Dysuria, urinary frequency, pelvic pain, and flank pain bilaterall y x 6 daysTook Azo OTC, helped x 2-3 daysUA in office appeared cloudy and positive for large amount of leukocytes and trace blood- Will send urine sample off for culture- Will start patient on macrobid x 5 days- encouraged patient to drink lots of water, continue with frequent urination to help flush out the bacteria, take a warm bath or use heating pad to help with pelvic pain, wipe front to back, and urinate after sexual intercours e- If symptoms do not improve, patient develops high fever and/or back pain symptoms get worse, please call the office or go to the ER [id number] OTONIEL Angeles (Adult Med) [address] [place] [address] [id number] 0 05/09/2019 16:46:29 05/10/2019 09:42:00 Acute sinusitis 66885798 J01.90 Hyperlipidemia 18739829 E78.5 Gastroesop hageal reflux disease 975490457 K21.0 Essential hypertension 32816458 I10 Vitamin D deficiency 347 85157 E55.9 High hemog lobin A1c level 896591687 R73.09 Health Concerns Section Related Observation LastModified by Organization Detai ls LastModified Time None Recorded Concern Status LastModified by Organization Details LastModified Time None Recorded Advance Directives Directive None Recorded Payers Encounter Date Sequence Insurance Name Policy Number Policy Rosen Covered Member ID Rosen Member ID Guarantor Name 05/07/2017 1 [facility] [id number] Darryl Corraleseva [id number] Dusgreer Corraleseva 12/29/2017 1 [place] Darryl Barragana [id number] Darryl Kahngieva 06/10/2018 1 [place] Darryl Corraleseva [id number] 1 [id number] Dusmaci Kahngieva 12/02/2018 1 [place] Darryl Kahngieva [id number] 1 [id number] Dusgreer Kahngieva 05/09/2019 1 [place] Darryl Corraleseva [id number] 1 [id number] 31 Silveriomaci Corraleseva Notes Date Note Type Note Provider Name and Address Organization Details Recorded Time 05/07/2017 text/html Cough productive of pale yellow sputum, sore throat for 4 weeks. Rhinitis. No obvious fever. Some chest burning. Feels fatigued. Episodic laryngitis. Babak Jimenez MD Attn: Accounting[address] [place], [address], [facility] 05/07/2017 17:22:33 12/29/2017 text/html no changes Mateo Rangel PA-C Attn: Accounting[address] [place], [place], [id number], [facility] 12/29/2017 22:58:55 06/10/2018 text/html Ms. Rock is a 67 yo F with PMH of Vit D deficiency, GERD, and palpitations (on carvedilol 6.25mg) who presents for f/u after ED visit 05/31/18 at which flu test was positive. At ED, CBC and CMP were drawn: all WNL. Patient was with daughter who explained she was diagnosed with pneumonia, as well. She followed a levoflaxocin 7 day course. Patient mainly complains of cough at the moment and wants to know what her labs entailed. Labs were discussed with patient. Patient denies worsening of symptoms, fever, or chills. Cough is till productive but is decreasing in frequency and is able to sleep fine throughout the night. Patient denies knowledge of ever having a pneumococcal or Tdap vaccine. Mateo Rangel PA-C Attn: Accounting,[address] [place], [address], [facility] 06/14/2018 21:57:32 12/02/2018 text/html DysuriaReported bypatient.Quality:bur petra(with urination);pain(pelvi c) Severity:moderate Duration:constant Timing:actual date: (started 6 days ago) Context:no prior history of STDs; no known exposure to STD Modifying Factors:OTC medication (took AZO OTC, provided relief for 2-3 days) Associated Symptoms:no fever; no blisters on genitals; no rash on genitals; no hesitancy; no blood in the urine; normal urine stream;flank pain(bilaterally)Note s:Denies history of multiple UTIs (states she had one many many years ago) and kidney stones. 68 year old female presents today for dysuria, urinary frequency, pelvic pain and flank pain bilaterally x 6 days. Patient speaks minimal mozambican, in the room to help translate but also speaks very broken mozambican. Lyric Cordero MD Attn: Accounting[address] [place], [address], [facility] 12/02/2018 17:58:20 OBGyn Episode No OBEpisode recorded.
--- OUTSIDE RECORDS SUMMARY | 2024-07-12 16:59 | XMS_ITS ---
Author Organization [facility] Address [address] [facility] [address] [facility] [address] [place] [address] Care Team Providers Care Gre Tutor Name Role Phone Vernon Jossue Unavailable [phone] Encounters Encounter Location Date Provider Diagnosis [place] [facility] [address] [facility] [address] [place] [address] 04/20/2024 Jossue Junior PLAN OF TREATMENT Next Appt Details Provider Name:Jossue Junior , 08/05/2024 01:30:00 PM, [address] [facility], [facility] [address], [place], [address], Progress Notes * JOHN ARCINIEGADOB: [birth year] (73 yo F)Acc No.[id number]:04/20/2024 Progress Notes Patient: JOHN ARCINIEGA Provider: MD VIRGIE, Gilma.Markell.C.P, F.A.S.N. :1950 Age:73 Y Sex:Female Date:04/20/2024 Address:[address] [place] [address] Subjective: * Chief Complaints: * * Medical History: Objective: Assessment: Plan: * Treatment: * Billing Information: * Visit Code: * Procedure Codes: * Sign off status: Pending * Provider: MD VIRGIE, Gilma.Markell.C.P, F.A.S.N. Date: 04/20/2024
--- OUTSIDE RECORDS SUMMARY | 2024-07-12 16:59 | XMS_ITS ---
Author Organization [facility] Address [address] [place] [address] Care Team Providers Care Vocational Counselor Name Role Phone Vernon Jossue Unavailable [phone] MEDICATIONS Medication SIG (Take, Route, Fr equency, Duration) Notes Start Date End Date Status Calcitriol 0.25 MCG TAKE 1 CAPSULE BY ERIKA [facility] EVERY DAY for 90 Active Encounters Encounter Location Date Provider Diagnosis [place] [facility] [address] [facility] [address] [place] [address] 05/27/2024 Jossue Junior Chronic kidney disea se, stage 2 (mild) N18.2 ; Essential hypertension I10 ; Type 2 diabetes mellitus with hyperglycemia E11.65 ; Hyperlipidemia, unspecified E78.5 ; Heart failure, unspecified I50.9 ; Gastro-esophageal reflux disease with esophagitis, without bleeding K21.00 and Renal osteodystrophy N25.0 ASSESSMENTS Encounter Date Diagnosis Assessment Notes Treatment Notes Treatment Clinical Notes Section Notes 05/27/2024 Chronic kidney disease, stage 2 (mild) (ICD-10 - N18.2) 05/27/2024 Essential hypertension (ICD-10 - I10) 05/27/2024 Type 2 diabetes mellitus with hyperglycemia (ICD-10 - E11.65) 05/27/2024 Hyperlipidemia, unspecified (ICD-10 - E78.5) 05/27/2024 Heart failure, unspecified (ICD-10 - I50.9) 05/27/2024 Gastro-esophageal reflux disease with esophagitis, without bleeding (ICD-10 - K21.00) 05/27/2024 Renal osteodystrophy (ICD-10 - N25.0) PLAN OF TREATMENT Next Appt Details Provider Name:Jossue Junior , 08/05/2024 01:30:00 PM, [address] [facility], [facility] [address], [place], [address], Progress Notes * JOHN ARCINIEGADOB: [birth year] (73 yo F)Acc No.[id number]:05/27/2024 Progress Notes Patient: JOHN ARCINIEGA Provider: MD VIRGIE, Babs.P, F.A.S.N. :1950 Age:73 Y Sex:Female Date:05/27/2024 Address:[address] [place] [address] Subjective: * Chief Complaints: * * Medical History: * Medications: Taking Calcitriol 0.25 MCG Capsule TAKE 1 CAPSULE BY MOUTH EVERY DAY Objective: Assessment: * Assessment: 1. Chronic kidney disease, stage 2 (mild) - N18.2 (Primary) 2. Essential hypertension - I10 3. Type 2 diabetes mellitus with hyperglycemia - E11.65 4. Hyperlipidemia, unspecified - E78.5 5. Heart failure, unspecified - I50.9 6. Gastro-esophageal reflux disease with esophagitis, without bleeding - K21.00 7. Renal osteodystrophy - N25.0 Plan: * Treatment: * Billing Information: * Visit Code: 19899 Office Visit, Est Pt., Level 4. * Procedure Codes: * Sign off status: Pending * Provider: MD VIRGIE, Gilma.Markell.Brody.P, F.A.S.N. Date: 05/27/2024
--- OUTSIDE RECORDS SUMMARY | 2024-07-12 16:59 | XMS_ITS | CONTINUITY OF CARE DOCUMENT ---
Author Name ingrid krystianmiguelangel Address Unknown Organization [facility] Address [address] [facility] [address] [place] [address] Phone [phone] Care Team Providers Care Special Events Fundraiser Name Role Phone Patrick Patrick MD Unavailable DOMI CASTRO MD Unavailable DOMI CASTRO MD Unavailable [phone] PROBLEMS Condition Status Date Provider Notes Palpitations active Patrick Patrick MD Dizziness active Patrick Patrick MD Fatigue active Patrick Patrick MD Dyslipidemia active Patrick Patrick MD TIA (left side affected) active ? Patrick naranjo MD Chest pressure active Patrick Patrick MD Shortness of breath active Patrick Patrick MD Cardiac murmur active Patrick Patrick MD Vasovagal attack active Patrick Patrick MD ENCOUNTERS Date Type Provider Location Encounter Diag nosis - In-person encounter Office Visit Patrick Patrick MD [facility] - In-person encounter Office Visit Patrick Patrick MD [facility] Vasovagal attack - In-person encounter Office Visit Patrick Patrick MD [facility] - In-person encounter Office Visit Patrick Patrick MD [facility] - In-person encounter Office Visit Patrick Patrick MD [facility] - In-person encounter Office Visit Patrick Patrick MD [facility] PalpitationsDizzinessFatigueDyslipidemia TIA (left side affected)Chest pressureShortness of breathCardiac murmur VITAL SIGNS Date Observation Value Provider Body Mass Index (Ratio) 21.96 kg/m2 Tony Patrick MD blood pressure, cuff size regular Ja [facility] blood pressure, diastolic 73 mm[Hg] Niko [facility] blood pressure, systolic 111 mm[Hg] Jan [facility] pulse rate 75 /min Keith respiratory rate E&M 12 /min Keith oxygen saturation, oximetry 97 % Keith weight E&M 124 [lb_av] Keith height E&M 63 [in_i] Keith Body Mass Index (Ratio) 22.03 kg/m2 Tony Patrick MD blood pressure, diastolic 79 mm[Hg] Carolina nkLognaomi blood pressure, systolic 127 mm[Hg] Venessa Katzognaomi pulse rate 70 /min Ericka Downey blood pressure, cuff size regular nataly Downey blood pressure, diastolic 79 mm[Hg] nataly Downey blood pressure, systolic 127 mm[Hg] [facility] deja Downey oxygen saturation, oximetry 97 % Ericka Downey respiratory rate E&M 18 /min Ericka Downey weight E&M 124.4 [lb_av] Ericka Downey height E&M 63 [in_i] Ericka Downey Body Mass Index (Ratio) 23.38 kg/m2 Tony Patrick MD blood pressure, diastolic 74 mm[Hg] Schuyler Jason blood pressure, systolic 121 mm[Hg] Basilia Jason oxygen saturation, oximetry 96 % Manuela Jason respiratory rate E&M 18 /min Thong Jason pulse rate 84 /min Manuela plunkett weight E&M 132 [lb_av] Manuela plunkett height E&M 63 [in_i] Manuela plunkett Body Mass Index (Ratio) 23.63 kg/m2 Tony Patrick MD blood pressure, diastolic 87 mm[Hg] Schuyler Adamsmaureen Eren blood pressure, systolic 139 mm[Hg] Basilia Jason oxygen saturation, oximetry 98 % Manuela Jason respiratory rate E&M 18 /min Thong Jason pulse rate 92 /min Manuela plunkett weight E&M 133.4 [lb_av] Manuela cleaning height E&M 63 [in_i] Manuela plunkett pulse rate 82 /min Nikole Yeh respiratory rate E&M 18 /min Nikole Yeh oxygen saturation, oximetry 98 % Nikole Yeh blood pressure, diastolic 74 mm[Hg] Donny Mcbridehley blood pressure, systolic 112 mm[Hg] Martin riley Rao Body Mass Index (Ratio) 21.96 kg/m2 Angel Yeh weight E&M 124 [lb_av] Nikole Yeh blood pressure, diastolic 70 mm[Hg] Schuyler Lopez'Miguel blood pressure, systolic 110 mm[Hg] Basilia moran O'Miguel pulse rate 76 /min Cathy O'Miguel oxygen saturation, oximetry 97 % Cathy MelchorMiguel respiratory rate E&M 14 /min Cathy MelchorMiguel Body Mass Index (Ratio) 21.79 kg/m2 Sahil MelchorMiguel weight E&M 123 [lb_av] Cathy Garciaal height E&M 63 [in_i] Cathy O'Miguel ALLERGIES No Known Drug Allergies HISTORY OF MEDICATION USE Medication Status Instructions Dates Provider Indications Com ments COREG 6.25 MG ORAL TABLET active ONE TAB. TWICE DAILY Patrick Patrick MD ASPIRIN ADULT LOW DOSE 81 MG ORAL TABLET DELAYED RELEASE active One Tab By Mouth Daily Cathy O'Miguel LOVASTATIN 10 MG ORAL TABLET active ONE TAB. DAILY Cathy O'Miguel [facility] OMEPRAZOLE 20 MG ORAL TABLET DELAYED RELEASE active once daily Cathy SunMiguel BISOPROLOL FUMARATE TABLET completed 2.5 mg once daily - Nikole Yeh SOCIAL HISTORY Date Observation Value Provider social history reviewed E&M revi ewed - no changes required Patrick Patrick MD social history E&M Smoking Histo ry: Smoking History: Divya horne has never smoked. Patrick Patrick MD smoking status Never smoker Patrick Patrick MD social history reviewed E&M revi ewed - no changes required Patrick Patrick MD social history E&M Smoking Histo ry: Smoking History: Divya horne has never smoked. Patrick Patrick MD smoking status Never smoker Ericka Nasreen social history E&M Smoking Histo ry: Smoking History: P atryan has never smoked. Patrick Patrick MD social history reviewed E&M revi ewed - no changes required Patrick Patrick MD alcohol use no Manuela plunkett smoking status Never smoker Manuela Morataya social history E&M Smoking Histo ry: S moking History: P atient has never smoked. Patrick Patrick MD social history reviewed E&M revi ewed - no changes required Patrick Patrick MD alcohol use no Manuela plunkett smoking status Never smoker Manuela Morataya social history reviewed E&M revi ewed - no changes required Patrick Patrick MD number of grandchildren Patrick Patrick MD T hemanth Yeh smoking status Never smoker Nikole cole alcohol use no Patrick Patrick MD social history reviewed E&M revmassiel ewed - no changes required Patrick Patrick MD social history E&M Smoking Histo ry: Patient has never smoked. Patrick Patrick MD smoking status Never smoker Cathy O'Miguel FAMILY HISTORY Family Member Condition Mother Family History Unkno wn INSURANCE PROVIDERS Payer name Policy type / Coverage type [place] red democrat ID [facility] MCARE COMPLETE PPO Commercial insurance comp any [id number] ADVANCE DIRECTIVES Name Date DISCUSSED - NO DECISION MADE TREATMENT PLAN Date Name Performer [id number],C,adán Patrick MD [id number],C,T he patient is on a statin H er updated medication list for this problem includes: Lovastatin 10 Mg Oral Tablet (Lovastatin) ..... One tab. daily Patrick Patrick MD [id number],C,carotid duple x was normal. Patrick Patrick MD [id number],C,H as been having nausea, dizziness and lighheadedness. W ill check a carotid ultrasound and echo Patrick Patrick MD [id number],C,adán Patrick MD Cardiology:adán Trotter Cardiology:The patie nt is on a statin H er updated medication list for this problem includes: Lovastatin 10 Mg Oral Tablet (Lovastatin) ..... One tab. daily Patrick Patrick MD Cardiology:carotid duplex was no rmal. Patrick Patrick MD Cardiology:Has been having nausea, dizziness and lighheadedness. W ill check a carotid ultrasound and echo Patrick Patrick MD Cardiology:denies Patrick Trotter Cardiology:Continue Lovastatin U maral Patrick MD Cardiology Patrick Patrick MD Cardiology:possibly due to life stress. I have given her a prescription for Xanax to be used as needed. She will return to see us as needed. Her event monitor, echo both came back normal. Patrick Patrick MD Cardiology:Will recheck echo, 2 week tele Patrick Patrick MD Cardiology:on Lovastatin 10mg. P er GREGORY Patrick MD Cardiology:Symptomat ic. Will check 2 week telesentry and will check echo. Request labs from GREGORY Rangel's office. Patrick Patrick MD Cardiology Patrick Patrick MD Cardiology Patrick Patrick MD Cardiology Patrick Patrick MD Cardiology:echo show s nl lv function h olter showed only one pvc n o need for any other meds other than coreg. Patrick Patrick MD Cardiology:Orders: Complete Echo ([id number]) Patrick Patrick MD Cardiology:Will obtain a 24 hr H olter monitor. Patrick Patrick MD Cardiology:Needs to have adenosine stress test because she cannot walk for more than a few minutes. Patrick Patrick MD Date Name Carotid Duplex Bilat eral Complete Echo Mobile Cardiac Tele Complete Echo Holter Monitor 24 Hr STR - Adenosine Complete Echo HISTORY OF PROCEDURES Procedure Date Procedure Name Provider Procedure Notes S tatus EKG Patrick Patrick MD completed Mobile Cardiac Telem etry - Tech Patrick Patrick MD completed Mobile Cardiac Telem etry - Prof Patrick Patrick MD completed EKG Patrick Patrick MD completed SNOMED-CT: [id number] Current Medications Documented Patrick Patrick MD completed Holter, 24 or 48 Angélica fowler MD completed EKG Patrick Patrick MD completed SNOMED-CT: [id number] Current Medications Documented Patrick Patrick MD completed
--- OUTSIDE RECORDS SUMMARY | 2024-07-12 16:59 | XMS_ITS | Patient Health Summary ---
Author Organization [facility] Address [address] [facility] [place] [address] Care Team Providers Care Curb Hop Name Role Phone Babak Jimenez MD Primary Care Provider [phone] Note from [facility],non-owned Affiliates and Associated Physician Practices is amultiple site organization consisting of ambulatory clinics and hospital sitesin [place], [place], [place] and [place]. This disclosure is being madepursuant to the Care Everywhere program and may not contain all information available regarding this patient. Last updated 18.[facility] J. Hilburn Social History Tobacco Use Types Packs/Day Years Used Date Smoking Tobacco: Never Assessed Sex and Gender Information Value Date Recorded Sex Assigned at Not on file Gender Identity Not on file Sexual Orientation Not on file Procedures * DEXA BONE DENSITY 2 SITES(Performed 06/15/2015) Performed for Encounter for screening for osteoporosis * MAMMO BILAT SCREENING(Performed 06/15/2015) Performed for Visit for screening mammogram * XR LUMBAR SPINE 2 OR 3VW(Performed 06/15/2015) Performed for Low back pain, unspecified back pain laterality, with sciatica presence unspecified Results * DEXA BONE DENSITY 2 SITES (06/15/2015 3:09 PM PURIFICATION DIRECTOR) Anatomical Region Laterality Modality Mammography 06/15/2015 3:12 PM PURIFICATION DIRECTOR Narrative 06/15/2015 3:47 PM PURIFICATION DIRECTOR BONE MINERAL DENSITY STUDY INDICATION: Osteoporosis screening. Postmenopausal status. FINDINGS: The average bone mineral density from L1 to L4 is 0.944 g/cm2. The T-score is -2.0 and the Z-score is -0.3. The average bone mineral density of the total mean hip is 0.820 g/cm2. The T-score is -1.5 and the Z-score is -0.3. ASSESSMENT: Findings are consistent with osteopenia. There is a mildly increased fracture risk. WORLD HEALTH ORGANIZATION DEFINITIONS OSTEOPENIA = -1 to -2.5 SD BELOW T SCORE. OSTEOPOROSIS = Less than -2.5 SD BELOW T SCORE Edited by Vanessa Garcia on 06/15/2015 3:33 PM Procedure Note Birdie Rodas MD - 06/15/2015 BONE MINERAL DENSITY STUDY INDICATION: Osteoporosis screening. Postmenopausal status. FINDINGS: The average bone mineral density from L1 to L4 is 0.944 g/cm2. The T-score is -2.0 and the Z-score is -0.3. The average bone mineral density of the total mean hip is 0.820 g/cm2. The T-score is -1.5 and the Z-score is -0.3. ASSESSMENT: Findings are consistent with osteopenia. There is a mildly increased fracture risk. WORLD HEALTH ORGANIZATION DEFINITIONS OSTEOPENIA = -1 to -2.5 SD BELOW T SCORE. OSTEOPOROSIS = Less than -2.5 SD BELOW T SCORE Edited by Vanessa Garcia on 06/15/2015 3:33 PM Babak Jimenez MD DEXA ORDERABLES * MAMMO SCREENING DIGITAL IMAGE BILAT G0202 (06/15/2015 2:50 PM PURIFICATION DIRECTOR) Anatomical Region Laterality Modality Breast Bilateral Mammography 06/15/2015 2:53 PM PURIFICATION DIRECTOR Narrative 06/15/2015 3:47 PM PURIFICATION DIRECTOR DIGITAL BILATERAL SCREENING MAMMOGRAMS WITH CAD CORRELATION DATE: 06/15/2015 PREVIOUS EXAM DATE: None available. INDICATION: Screening. TECHNIQUE: Bilateral craniocaudad (CC) and mediolateral oblique (MLO) views. The study was interpreted with the aid of CAD. TECHNOLOGIST: RT Nicole(R)(M) TISSUE DENSITY: Scattered fibroglandular elements. FINDINGS: There is no discrete abnormality. There is no mass nor microcalcification. There are small normal-appearing axillary lymph nodes bilaterally. A single benign-appearing calcification is seen in the right breast. ASSESSMENT: (BI-RADS category 1) Negative. RECOMMENDATIONS: Followup one year. The above findings should be correlated with physical examination. A relatively nonspecific study should not preclude additional evaluation if suspicious findings are present clinically. An [employer] Certified Facility. [facility] Breast Centers utilize [employer] as a reminder system to notify patients of their next recommended mammograms. Edited by Vanessa Garcia on 06/15/2015 3:29 PM Babak Jiemnez MD MAMMO ORDERABLES * XR LUMBAR SPINE 2 OR 3 VW (06/15/2015 2:09 PM PURIFICATION DIRECTOR) Anatomical Region Laterality Modality Spine Radiographic Brenda ging 06/15/2015 2:11 PM PURIFICATION DIRECTOR Impressions 06/15/2015 3:16 PM PURIFICATION DIRECTOR GRADE 2 ANTEROLISTHESIS OF L5 UPON S1. SEE ABOVE. Edited by La Mason on 06/15/2015 2:35 PM Narrative 06/15/2015 3:16 PM PURIFICATION DIRECTOR LUMBAR SPINE 3 VIEWS INDICATION: Low back pain and lumbar spine pain. FINDINGS: Three views of the lumbar spine show grade 2 anterolisthesis of L5 upon S1 with intervertebral disc space narrowing. There is bony demineralization. There is otherwise no acute fracture. Procedure Note Guido Sanchez MD - 06/15/2015 LUMBAR SPINE 3 VIEWS INDICATION: Low back pain and lumbar spine pain. FINDINGS: Three views of the lumbar spine show grade 2 anterolisthesis of L5 upon S1 with intervertebral disc space narrowing. There is bony demineralization. There is otherwise no acute fracture. IMPRESSION GRADE 2 ANTEROLISTHESIS OF L5 UPON S1. SEE ABOVE. Edited by La Mason on 06/15/2015 2:35 PM Babak Jimenez MD DIAGNOSTIC IMAGING O RDERABLES Care Teams Curb Hop Relationship Specialty Start Date End Date Babak Jimenez MD [address] [place] [address] PCP - General Gastroenterology 06/15/15
--- OUTSIDE RECORDS SUMMARY | 2024-07-12 16:59 | XMS_ITS | Referral Summary ---
Author Organization [facility] Address [address] [place] [address] Care Team Providers Care Safety Associate Name Role Phone Babak Jimenez MD Primary Care Provider [phone] Source Comments [facility],non-owned Affiliates and Associated Physician Practices is amultiple site organization consisting of ambulatory clinics and hospital sitesin [place], [place], [place] and [place]. This disclosure is being madepursuant to the Care Everywhere program and may not contain all information available regarding this patient. Last updated 18.[facility] [employer] Social History Tobacco Use Types Packs/Day Years Used Date Smoking Tobacco: Never Assessed Sex and Gender Information Value Date Recorded Sex Assigned at Not on file Gender Identity Not on file Sexual Orientation Not on file Plan of Treatment Not on file Procedures Procedure Name Priority Date/Time Associated Diagnosis Comments DEXA BONE DENSITY 2 SITES Routine 06/15/2015 3:09 PM DEVELOPMENT MANAGER Encounter for screening for osteoporosis MAMMO BILAT SCREENING Routine 06/15/2015 2:50 PM DEVELOPMENT MANAGER Visit for screening mammogram from Last 3 Months or Most Recently Relevant to Health Maintenance Results * DEXA BONE DENSITY 2 SITES (06/15/2015 3:09 PM DEVELOPMENT MANAGER) Anatomical Region Laterality Modality Mammography 06/15/2015 3:12 PM DEVELOPMENT MANAGER Narrative 06/15/2015 3:47 PM DEVELOPMENT MANAGER BONE MINERAL DENSITY STUDY INDICATION: Osteoporosis screening. [...] DIGITAL IMAGE BILAT G0202 (06/15/2015 2:50 PM DEVELOPMENT MANAGER) Anatomical Region Laterality Modality Breast Bilateral Mammography 06/15/2015 2:53 PM DEVELOPMENT MANAGER Narrative 06/15/2015 3:47 PM DEVELOPMENT MANAGER DIGITAL BILATERAL SCREENING MAMMOGRAMS WITH CAD CORRELATION [...] if suspicious findings are present clinically. An [employer] Certified Facility. [facility] Breast Centers utilize [employer] as a reminder system to notify patients of their next recommended mammograms. Edited by Vanessa Garcia on 06/15/2015 3:29 PM Babak Jimenez MD MAMMO ORDERABLES from Last 3 Months or Most Recently Relevant to Health Maintenance Care Teams Safety Associate Relationship Specialty Start Date End Date Babak Jimenez MD [address] [place] [id number] PCP - General Gastroenterology 06/15/15
--- OUTSIDE RECORDS SUMMARY | 2024-07-12 16:59 | XMS_ITS | Patient Health Record ---
Author Organization [facility] Office Address [address] [facility] [address] [facility] [address] [place] [address] Care Team Providers Care Economic Consultant Name Role Phone Jossue Junior Unavailable [phone] REASON FOR REFERRAL No Information MEDICATIONS Medication SIG (Take, Route, Fr equency, Duration) Notes Start Date End Date Status Calcitriol 0.25 MCG TAKE 1 CAPSULE BY MO UT EVERY DAY for 90 Active PROBLEMS Problem Type ICD Code Onset Dates Problem Status W/U Status Risk SNOMED Code Notes Problem Type 2 diabetes mellitus with hyperglycemia (E11.65) Active confirmed Hyperglycemia d ue to type 2 diabetes mellitus (032024664289563) Problem Hyperlipidemia, unspecified (E78.5) Active confirmed Hyperlipidemia (92386007) Problem Heart failure, unspecified (I50.9) Active confirmed Heart failure (35899280) Problem Chronic kidney disease, stage 2 (mild) (N18.2) Active confirmed Chronic kidne y disease stage 2 (976468711) Problem Renal osteodystrophy (N25.0) Active confirmed Renal osteodystrophy (77384065) Problem Essential hypertension (I10) Active confirmed Essential hypertension (79465465) Problem Gastro-esophageal reflux disease with esophagitis, without bleeding (K21.00) Active confirmed Gastroesophagea l reflux disease with esophagitis (disorder) (273109389) Encounters Encounter Location Date Provider Diagnosis [place] [facility] [address] [address] 07/15/2023 Jossue Junior Chronic kidney disea se, stage 2 (mild) N18.2 ; Essential hypertension I10 ; Type 2 diabetes mellitus with hyperglycemia E11.65 ; Hyperlipidemia, unspecified E78.5 ; Heart failure, unspecified I50.9 and Gastro-esophageal reflux disease with esophagitis, without bleeding K21.00 [facility] [address] [address] 10/14/2023 Jossue Junior Chronic kidney disea se, stage 2 (mild) N18.2 ; Essential hypertension I10 ; Type 2 diabetes mellitus with hyperglycemia E11.65 ; Hyperlipidemia, unspecified E78.5 ; Heart failure, unspecified I50.9 and Gastro-esophageal reflux disease with esophagitis, without bleeding K21.00 [facility] [address] [place] [address] 01/20/2024 Jossue Junior Chronic kidney disea se, stage 2 (mild) N18.2 ; Essential hypertension I10 ; Type 2 diabetes mellitus with hyperglycemia E11.65 ; Renal osteodystrophy N25.0 ; Hyperlipidemia, unspecified E78.5 ; Heart failure, unspecified I50.9 and Gastro-esophageal reflux disease with esophagitis, without bleeding K21.00 [facility] [address] [place] [address] 04/20/2024 Jossue Junior [facility] [address] [place] [address] 05/27/2024 Jossue Junior Chronic kidney disea se, stage 2 (mild) N18.2 ; Essential hypertension I10 ; Type 2 diabetes mellitus with hyperglycemia E11.65 ; Hyperlipidemia, unspecified E78.5 ; Heart failure, unspecified I50.9 ; Gastro-esophageal reflux disease with esophagitis, without bleeding K21.00 and Renal osteodystrophy N25.0 [facility] [address] [place] [address] 07/15/2023 Jossue Junior ASSESSMENTS Encounter Date Diagnosis Assessment Notes Treatment Notes Treatment Clinical Notes Section Notes 07/15/2023 Chronic kidney disease, stage 2 (mild) (ICD-10 - N18.2) 10/14/2023 Chronic kidney disease, stage 2 (mild) (ICD-10 - N18.2) 01/20/2024 Chronic kidney disease, stage 2 (mild) (ICD-10 - N18.2) 01/20/2024 Essential hypertension (ICD-10 - I10) 05/27/2024 Chronic kidney disease, stage 2 (mild) (ICD-10 - N18.2) 05/27/2024 Essential hypertension (ICD-10 - I10) 01/20/2024 Type 2 diabetes mellitus with hyperglycemia (ICD-10 - E11.65) 10/14/2023 Essential hypertension (ICD-10 - I10) 07/15/2023 Essential hypertension (ICD-10 - I10) 07/15/2023 Type 2 diabetes mellitus with hyperglycemia (ICD-10 - E11.65) 10/14/2023 Type 2 diabetes mellitus with hyperglycemia (ICD-10 - E11.65) 01/20/2024 Renal osteodystrophy (ICD-10 - N25.0) 05/27/2024 Type 2 diabetes mellitus with hyperglycemia (ICD-10 - E11.65) 05/27/2024 Hyperlipidemia, unspecified (ICD-10 - E78.5) 01/20/2024 Hyperlipidemia, unspecified (ICD-10 - E78.5) 10/14/2023 Hyperlipidemia, unspecified (ICD-10 - E78.5) 07/15/2023 Hyperlipidemia, unspecified (ICD-10 - E78.5) 07/15/2023 Heart failure, unspecified (ICD-10 - I50.9) 10/14/2023 Heart failure, unspecified (ICD-10 - I50.9) 01/20/2024 Heart failure, unspecified (ICD-10 - I50.9) 05/27/2024 Heart failure, unspecified (ICD-10 - I50.9) 01/20/2024 Gastro-esophageal reflux disease with esophagitis, without bleeding (ICD-10 - K21.00) 10/14/2023 Gastro-esophageal reflux disease with esophagitis, without bleeding (ICD-10 - K21.00) 07/15/2023 Gastro-esophageal reflux disease with esophagitis, without bleeding (ICD-10 - K21.00) 05/27/2024 Gastro-esophageal reflux disease with esophagitis, without bleeding (ICD-10 - K21.00) 05/27/2024 Renal osteodystrophy (ICD-10 - N25.0) PLAN OF TREATMENT Next Appt Details Provider Name:Jossue Junior , 08/05/2024 01:30:00 PM, [address], [place], [address],
--- OUTSIDE RECORDS SUMMARY | 2024-07-12 17:00 | XMS_ITS | Data Portability ---
Author Organization [facility], Main Office Address [address] [place] [address] Assessment Encounter Date Assessment Date Assessment LastModified by Organization Details LastModified Time 11/11/2022 11/11/2022 10/27/2022: A1C 5.8 Gluc 118 Not available 11/11/2022 08:47:20 04/14/2023 04/14/2023 10/27/2022: A1C 5.8 Gluc 118 04/10/2023: A1C 6.0 Gluc 107, ALT 42 LDL 103 Not available 04/12/2023 19:13:32 10/13/2023 10/13/2023 10/27/2022: A1C 5.8 Gluc 118 04/10/2023: A1C 6.0 Gluc 107, ALT 42 LDL 103 10/09/2023: A1C 6.0 Gluc 110 Not available 10/11/2023 18:01:49 02/09/2024 02/09/2024 10/27/2022: A1C 5.8 Gluc 118 04/10/2023: A1C 6.0 Gluc 107, ALT 42 LDL 103 10/09/2023: A1C 6.0 Gluc 110 01/19/2024: Dr Vernon DALTON Gluc 108, AST 40, alb 4.5, TP WNL A1C 6.1 Not available 02/09/2024 11:10:09 06/14/2024 06/14/2024 10/27/2022: A1C 5.8 Gluc 118 04/10/2023: A1C 6.0 Gluc 107, ALT 42 LDL 103 10/09/2023: A1C 6.0 Gluc 110 01/19/2024: Dr Junior IJ Gluc 108, AST 40, alb 4.5, TP WNL A1C 6.1 05/20/2024: [facility] LDL 100 Gluc 109 A1C 6.0 tika Not available 06/14/2024 11:11:28 Plan of Treatment Reminders Order Date Submit Date Provider Last Modified By Organization Details Last Modified Time Details Appointments Any 15 2024 09:30A M Francisco mckenzie MD Not available Not available Not available Lab glycohemo globin, total, blood [address] (Lab), [address] [place], [address], 06/15/2024 10:04:49 microalbu min, urine [address] (Lab), [address] [place], [address], 06/15/2024 10:04:49 lipid panel, serum [address] (Lab), [address] [place], [address], 06/15/2024 10:04:49 CBC w/ auto diff [address] (Lab), [address] [place], [address], 06/15/2024 10:04:49 CMP, serum or plasma [address] (Lab), [address] [place], [address], 06/15/2024 10:04:49 TSH, serum or plasma [address] (Lab), [address] [place], [address], 06/15/2024 10:04:50 glycohemo globin, total, blood 2023 024 [facility] (Lab), [address] [place], [address], 02/09/2024 13:19:23 microalbu min, urine 2023 024 [facility] (Lab), [address] [place], [address], 02/09/2024 13:19:23 lipid panel, serum 2023 024 [facility] (Lab), [address] [place], [address], 02/09/2024 13:19:23 CBC w/ auto diff 2023 024 [facility] (Lab), [address] [place], [address], 02/09/2024 13:19:22 CMP, serum or plasma 2023 024 [facility] (Lab), [address] [place], [address], 02/09/2024 13:19:22 TSH, serum or plasma 2023 024 [facility] (Lab), [address] [place], [address], 02/09/2024 13:19:22 glycohemo globin, total, blood [address] (Lab), [address] [place], [address], 04/11/2024 09:52:16 microalbu min, urine [address] (Lab), [address] [place], [address], 04/11/2024 09:52:16 lipid panel, serum [address] (Lab), [address] [place], [address], 04/11/2024 09:52:16 CBC w/ auto diff [address] (Lab), [address] [place], [address], 04/11/2024 09:52:16 CMP, serum or plasma [address] (Lab), [address] [place], [address], 04/11/2024 09:52:16 TSH, serum or plasma [address] (Lab), [address] [place], [address], 04/11/2024 09:52:17 glycohemo globin, total, blood 2022 023 [facility] (Lab), [address] [place], [address], 10/09/2023 11:36:48 microalbu min, urine 2022 023 [facility] (Lab), [address] [place], [address], 10/09/2023 12:35:02 lipid panel, serum 2022 023 [facility] (Lab), [address] [place], [address], 10/09/2023 10:54:46 CBC w/ auto diff 2022 023 [facility] (Lab), [address] [place], [address], 10/09/2023 10:13:23 CMP, serum or plasma 2022 023 [facility] (Lab), [address] [place], [address], 10/09/2023 10:55:12 TSH, serum or plasma 2022 023 [facility] (Lab), [address] [place], [address], 10/09/2023 11:30:46 glycohemo globin, total, blood 2022 023 [facility] (Lab), [address] [place], [address], 04/10/2023 17:22:46 microalbu min, urine 2022 023 [facility] (Lab), [address] [place], [address], 04/10/2023 13:40:39 lipid panel, serum 2022 023 [facility] (Lab), [address] [place], [address], 04/10/2023 11:19:42 CBC w/ auto diff 2022 023 [facility] (Lab), [address] [place], [address], 04/10/2023 11:17:14 CMP, serum or plasma 2022 023 [facility] (Lab), [address] [place], [address], 04/10/2023 11:19:49 TSH, serum or plasma 2022 023 [facility] ([facility]), [address], [place], [address], 04/10/2023 12:03:29 Referral gynecolog ist referral - Please call patient to schedule an appointme nt. Thank you. 2024 025 JERARDO Bailey MD, [address] [facility] [address], [address], [place], [address], 07/04/2024 13:20:04 nephrolog ist referral - Please call patient to schedule an appointme nt. Thank you. 2024 025 [place]-Resub mela-Revert Jossue Junior MD (Nephrology, [address], [address], [place], [address], 07/04/2024 14:40:34 podiatris t referral - Please call patient to schedule an appointme nt. Thank you. 2024 025 MICHELLE Faith DPM, [address] [facility], [address], [place], [address], 07/04/2024 14:01:31 cardiolog ist referral - Please call patient to schedule an appointme nt. Thank you. 2024 025 [place], [address], [address], [place], [address], 07/04/2024 13:43:30 gynecolog ist referral - Please call patient to schedule. 2023 024 [email or web address] Ismael Bailey MD, [address] [facility] [address], [address], [place], [address], 06/14/2024 11:59:27 nephrolog ist referral 2023 024 [email or web address] Jossue Junior MD (Nephrology, [address], [address], [place], [address], 02/10/2024 08:32:36 podiatris t referral 2023 024 MICHELLE Fredy Faith DPM, [address], [address], [place], [address], 02/10/2024 11:47:48 cardiolog ist referral - Please call patient to schedule. 2023 024 [place], [address], [address], [place], [address], 06/14/2024 11:59:29 gynecolog ist referral 2023 024 anna Bailey MD, [address], [address], [place], [address], 04/11/2024 09:52:52 podiatris t referral 2023 024 anna Faith DPM, [address], [address], [place], [address], 05/11/2024 17:02:03 cardiolog ist referral 2023 024 [place], [address], [address], [place], [address], 04/11/2024 09:52:54 gynecolog ist referral 2022 023 anna Bailey MD, [address], [address], [place], [address], 11/11/2023 11:56:35 cardiolog ist referral 2022 023 [place], [address], [address], [place], [address], 10/12/2023 09:03:00 gynecolog ist referral 2022 023 [email or web address] Ismael Bailey MD, [address] [facility] [address], [address], [place], [address], 12/24/2022 11:54:58 cardiolog ist referral 2022 023 [place], [address], [address], [place], [address], 01/02/2023 10:48:43 Procedures None recorded. Surgeries None recorded. Imaging MAMMO, screening , digital, bilateral - Please call patient to schedule. [address], [address], [address], [place], [address], 06/15/2024 09:06:22 DEXA, axial skeleton [address] ([facility]), [address] [place], [address], 06/15/2024 09:07:04 MAMMO, screening , digital, bilateral - Please call patient to schedule. [address], [address], [address], [place], [address], 03/15/2024 10:29:17 DEXA, axial skeleton [email or web address] ([facility]), [address] [place], [address], 03/14/2024 16:55:36 MAMMO, screening , digital, bilateral [address] [facility] ([facility]), [address] [place], [address], 11/17/2022 10:40:05 Medication Orders alprazola m 0.25 mg tablet 2023 024 [id number], [address] [place] [address], [address], 02/09/2024 11:01:51 carvedilo l 3.125 mg tablet 2022 023 [email or web address] [facility] [id number], [address], 11/11/2022 11:20:18 Patient TargetsNo targets recorded. Patient Instructions Encounter Date Encounter Id Patient Instructions Last Modified By Organization Details Last Modified Time 10/13/2023 [id number] dementia rating scale-2* [email or web address] Not available 10/13/2023 11:21:34 alcohol misuse* [email or web address] 2 Not available 10/13/2023 11:21:34 depression screening* [email or web address] 2 Not available 10/13/2023 11:21:34 diabetic eye exam* MICHELLE Not availab le 03/04/2024 13:39:06 multi-dimensiona l health assessment questionnaire* [email or web address] 2 Not available 10/13/2023 11:21:34 advance directiv es: care instructions [email or web address] 2 Not available 10/13/2023 11:21:33 advance care planning: care instructions [email or web address] 2 Not available 10/13/2023 11:21:34 [place] Advance Directives [email or web address] 2 Not available 10/13/2023 11:21:34 Personalized [facility] lt Plan and Screening Recommendations Advance Directives - Do you have one? No You have indicated that you are capable of preparing your advance care directive Advance Directives - Do we have your advance directive on file in your health record? Primary Prevention/Interven tion (prevents or decreases the chance of common diseases from occurring) Smoking Risk: Non Smoker Alcohol Misuse Screening: Negative Weight: Appropriate Physical activity: Need more exercise/physical activity minimum of 10-20 minutes of activity that causes mild breathlessness/day Nutrition: Good Average Refer to attached handout Heart-Healthy Diet: After Your Visit Refer to attached handout DASH Diet: After Your Visit Fall Risk (screened today): Low Refer to attached handout Preventing Falls: After your Visit Vaccines Pneumococcal: Ordered Recommended today Recommended today, but you have declined No further needed Influenza: Your next one in the fall of this year Chronic Disease Risks Stroke: Low Risk Intermediate Risk I have no recommendations Heart Attack: Low risk Intermediate Risk I have no recommendations Clogging of the Arteries: High risk I have no recommendations Act jay diagnosis, Continue current treatment plan Diabetes: High Risk Active diagnosis, Continue current treatment plan Secondary Prevention/Interven tion (detects treatable diseases before they may cause symptoms, disability, or ) Breast Cancer Screening with mammogram: Your next mammogram: Ordered Cervical/Uterine/Ov radhames Cancer Screening: No screening necessary Osteoporosis Screening: Your next DEXA in: Ordered Date Screening Last Performed: 01/16/2022 Colon Cancer Screening: Colonoscopy Date Screening Last Performed: 12/15/2019 Eye Disease Screening: Ordered Recommended today Dementia Risk: Low Intermediate I have no recommendations Depression Screening: Negative [email or web address] Not available 10/13/2023 10:56:52 Reason for Referral Longwall Foreman Referral for Gy necologic examination Referring Physician: Francisco Nowak Internal Medicine, Encounter Date: 11/11/2022 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 Referral for Es sential hypertension Referring Physician: Ema Melgar Medicine, Encounter Date: 11/11/2022 Longwall Foreman Referral for Gy necologic examination Referring Physician: Ema Melgar, Encounter Date: 04/14/2023 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 Referring Physician: Francisco Nowak Internal Medicine, Encounter Date: 02/09/2024 [employer]orer [employer] Referral for Pred iabetes Referring Physician: Francisco Nowak Internal Medicine, Encounter Date: 02/09/2024 Career Technical Education Teacher Referral for Pr oteinuria Referring Physician: Francisco Nowak Internal Medicine, Encounter Date: 02/09/2024 Longwall Foreman Referral for Gy necologic examination Please call patient to schedule an appointment. Thank you. 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 Thank you. Referring Physician: Francisco Nowak Internal Medicine, Encounter Date: 06/14/2024 [employer] Referral for Pred iabetes Please call patient to schedule an appointment. Thank you. Referring Physician: Ema Melgar Medicine, Encounter Date: 06/14/2024 Career Technical Education Teacher Referral for Pr oteinuria Please call patient to schedule an appointment. Thank you. Referring Physician: Ema Melgar Medicine, Encounter Date: 06/14/2024 Results Created Date Observation Date Name Description Value Unit Range Abnormal Flag Note LastModifiedBy Organization Detail LastModifiedTime 10/28/1910/27/2022 CBC/C OMPLE TE BLD COUNT W/DIF F white blood cells 5.5 x10'3 /uL 4.2-10 .8 Not Available [facility] (Lab) [address] [place], [address], 10/27/2022 08:39:12 10/28/192023 CBC/C OMPLE TE BLD COUNT W/DIF F red blood cells 4.86 x10'6 /uL 3.80-5 .20 Not Available [facility] (Lab) [address] [place], [address], 10/27/2022 08:39:12 10/28/19 23 10/27/2022 CBC/C OMPLE TE BLD COUNT W/DIF F hemoglobin 14.4 g/dL 12.0-1 5.6 Not Available [facility] (Lab) [address] [place], [address], 10/27/2022 08:39:12 10/28/19 23 10/27/2022 CBC/C OMPLE TE BLD COUNT W/DIF F hematocrit 43.4 % 35.7-4 5.7 Not Available [facility] (Lab) [address] [place], [address], 10/27/2022 08:39:12 10/28/19 23 10/27/2022 CBC/C OMPLE TE BLD COUNT W/DIF F mean red cell volume 89.3 fL 82.0-9 9.0 Not Available [facility] (Lab) [address] [place], [address], 10/27/2022 08:39:12 10/28/19 23 10/27/2022 CBC/C OMPLE TE BLD COUNT W/DIF F mean red cell hemoglobin 29.6 pg 27.0-3 3.0 Not Available [facility] (Lab) [address] [place], [address], 10/27/2022 08:39:12 10/28/19 23 10/27/2022 CBC/C OMPLE TE BLD COUNT W/DIF F mean RBC HGB concentratio n 33.2 g/dL 31.0-3 6.0 Not Available [facility] (Lab) [address] [place], [address], 10/27/2022 08:39:12 10/28/19 23 10/27/2022 CBC/C OMPLE TE BLD COUNT W/DIF F red cell distribution width 13.0 % 11.8-1 5.5 Not Available [facility] (Lab) [address] [place], [address], 10/27/2022 08:39:12 10/28/19 23 10/27/2022 CBC/C OMPLE TE BLD COUNT W/DIF F platelets 206 x10'3 /uL 150-40 0 Not Available [facility] (Lab) [address] [place], [address], 10/27/2022 08:39:12 10/28/1910/27/2022 CBC/C OMPLE TE BLD COUNT W/DIF F mean platelet volume 13.0 fL 9.0-12 .4 high Not Available [facility] (Lab) [address] [place], [address], 10/27/2022 08:39:12 10/28/19 23 10/27/2022 CBC/C OMPLE TE BLD COUNT W/DIF F neutrophils 52.6 % 39.0-7 2.0 Not Available [facility] (Lab) [address] [place], [address], 10/27/2022 08:39:12 10/28/1910/27/2022 CBC/C OMPLE TE BLD COUNT W/DIF F lymphocytes 36.7 % 16.0-4 7.0 Not Available [facility] (Lab) [address] [place], [address], 10/27/2022 08:39:12 10/28/1910/27/2022 CBC/C OMPLE TE BLD COUNT W/DIF F monocytes 8.2 % 5.0-12 .0 Not Available [facility] (Lab) [address] [place], [address], 10/27/2022 08:39:12 10/28/19 23 10/27/2022 CBC/C OMPLE TE BLD COUNT W/DIF F eosinophils 1.8 % 1.0-7. 0 Not Available [facility] (Lab) [address] [place], [address], 10/27/2022 08:39:12 10/28/1910/27/2022 CBC/C OMPLE TE BLD COUNT W/DIF F basophils 0.5 % 0.0-2. 0 Not Available [facility] (Lab) [address] [place], [address], 10/27/2022 08:39:12 10/28/1910/27/2022 CBC/C OMPLE TE BLD COUNT W/DIF F immature granulocytes 0.2 % 0.00-0 .50 Not Available [facility] (Lab) [address] [place], [address], 10/27/2022 08:39:12 10/28/1910/27/2022 CBC/C OMPLE TE BLD COUNT W/DIF F neutrophils, absolute count 2.89 x10'3 /uL 1.5-8. 0 Not Available [facility] (Lab) [address] [place], [address], 10/27/2022 08:39:12 10/28/1910/27/2022 CBC/C OMPLE TE BLD COUNT W/DIF F lymphocytes, absolute count 2.02 x10'3 /uL 1.07-3 .43 Not Available [facility] (Lab) [address] [place], [address], 10/27/2022 08:39:12 10/28/1910/27/2022 CBC/C OMPLE TE BLD COUNT W/DIF F monocytes, absolute count 0.45 x10'3 /uL 0.29-0 .99 Not Available [facility] (Lab) [address] [place], [address], 10/27/2022 08:39:12 10/28/19 23 10/27/2022 CBC/C OMPLE TE BLD COUNT W/DIF F eosinophils, absolute count 0.10 x10'3 /uL 0.02-0 .53 Not Available [facility] (Lab) [address] [place], [address], 10/27/2022 08:39:12 10/28/19 23 10/27/2022 CBC/C OMPLE TE BLD COUNT W/DIF F basophils, absolute count 0.03 x10'3 /uL 0.01-0 .08 Not Available [facility] (Lab) [address] [place], [address], 10/27/2022 08:39:12 10/28/19 23 10/27/2022 CBC/C OMPLE TE BLD COUNT W/DIF F immature granulocytes ,absolute 0.01 x10'3 /uL 0.00-0 .05 Not Available [facility] (Lab) [address] [place], [address], 10/27/2022 08:39:12 10/28/19 23 10/27/2022 CBC/C OMPLE TE BLD COUNT W/DIF F nucleated red blood cells 0.0 % -0 Not Available [facility] (Lab) [address] [place], [address], 10/27/2022 08:39:12 10/28/19 23 10/27/2022 CBC/C OMPLE TE BLD COUNT W/DIF F NRBC# 0.00 x10'3 /uL Not Available [facility] (Lab) [address] [place], [address], 10/27/2022 08:39:12 10/28/19 23 10/27/2022 TSH W/REF ROSSANA FT4 TSH with reflex free T4 3.360 uIU/m L 0.465- 4.680 Not Available [facility] (Lab) [address] [place], [address], 10/27/2022 09:51:26 10/28/19 23 10/27/2022 LIPID PANEL cholesterol 173 mg/dL 140-19 9 [facility] SHIRLEY NSUS RECOM MENDA TION FOR DAVE STERO L: ADULT CHILD LOW RISK: <200 <170 BORDE RLINE : <200- 239 ----- HIGH RISK: >240 >200 Not Available [facility] (Lab) [address] [place], [address], 10/27/2022 11:36:00 10/28/19 23 10/27/2022 LIPID PANEL triglyceride s 88 mg/dL 0-150 [facility] SHIRLEY NSUS REPOR T RECOM MENDA TION FOR TRIGL YCERI GERRY: ADULT CHILD LOW RISK: <150 ----- BODER LINE: 150-1 99 ----- HIGH RISK: >200 ----- Not Available [facility] (Lab) [address] [place], [address], 10/27/2022 11:36:00 10/28/19 23 10/27/2022 LIPID PANEL HDL cholesterol 77 mg/dL 40- Not Available [facility] (Lab) [address] [place], [address], 10/27/2022 11:36:00 10/28/19 23 10/27/2022 LIPID PANEL LDL cholesterol, calculated 78 mg/dL 0-130 [facility] SHIRLEY NSUS REPOR T RECOM MENDA TIONS FOR LDL: ADULT CHILD LOW RISK <130 <110 (OPTI MAL LDL) <100 ----- BORDE RLINE : 130-1 59 ----- HIGH RISK: >160 >130 A TRIGL YCERI DE RESUL T >400 INVAL IDATE S THE CALCU LATIO N FOR LDL FRACT IONAT ION - THE LDL RESUL T WILL NOT BE REPOR UMBERTO. Not Available [facility] (Lab) [address] [place], [address], 10/27/2022 11:36:00 10/28/19 23 10/27/2022 COMPR EHENS JAY METAB OLIC PANEL sodium 143 mmol/ L 137-14 5 Not Available [facility] (Lab) [address] [facility] [place], [address], 10/27/2022 11:36:09 10/28/19 23 10/27/2022 COMPR EHENS JAY METAB OLIC PANEL potassium 4.8 mmol/ L 3.5-5. 1 Not Available [facility] (Lab) [address] [place], [address], 10/27/2022 11:36:09 10/28/19 23 10/27/2022 COMPR EHENS JAY METAB OLIC PANEL chloride 105 mmol/ L 98-107 Not Available [facility] (Lab) [address] [place], [address], 10/27/2022 11:36:09 10/28/19 23 10/27/2022 COMPR EHENS JAY METAB OLIC PANEL carbon dioxide 25 mmol/ L 22-30 Not Available [facility] (Lab) [address] [place], [address], 10/27/2022 11:36:09 10/28/19 23 10/27/2022 COMPR EHENS JAY METAB OLIC PANEL anion gap 17.8 mmol/ L 14-22 Not Available [facility] (Lab) [address] [place], [address], 10/27/2022 11:36:09 10/28/19 23 10/27/2022 COMPR EHENS JAY METAB OLIC PANEL glucose 118 mg/dL 70-99 high Not Available [facility] (Lab) [address] [place], [address], 10/27/2022 11:36:09 10/28/19 23 10/27/2022 COMPR EHENS JAY METAB OLIC PANEL BUN 10 mg/dL 8-19 Not Available [facility] (Lab) [address] [place], [address], 10/27/2022 11:36:10/28/1910/27/2022 COMPR EHENS JAY METAB OLIC PANEL creatinine 0.82 mg/dL 0.66-1 .25 Not Available [facility] (Lab) [address] [place], [address], 10/27/2022 11:36:10/28/1910/27/2022 COMPR EHENS JAY METAB OLIC PANEL GFR >60 Refer ence Range : [place] ge GFR Healt hy Adult : >60 mL/mi n/1.7 3 m2 Chron ic Kidne y Disea se: 15-60 mL/mi n/1.7 3 m2 Kidne y Failu re: <15/m L/min /1.73 m2 www.n iddk. nih.g ov The MDRD study equat ion has not been valid ated in child jay <18 years of age; pregn ant women ; the elder ly >85 years of age; or in some racia l or ethni c subgr oups, such as Hispa nics. Outsi de the valid ated nick eters , estim ated GFR is less accur ate, requi ring clini shameka judgm ent on a case- by-ca se basis . Clini shameka inter preta tion for other races and ages must be made by the clini demi. The MDRD study equat ion has not been valid ated for the evalu ation of serum creat inine relat ed to nutri rashid l statu s or medic ation usage . For perso ns <18 years of age, a pedia tric GFR calcu lator is avail able on the NKF websi te: https ://sadie franco.franklyn dickens/pr juvenal senal s/kdo qi/gf r_cal culat or Not Available [facility] (Lab) [address] [place], [address], 10/27/2022 11:36:09 10/28/192023 COMPR EHENS JAY METAB OLIC PANEL alkaline phosphatase 49 U/L 38-126 Not Available [facility] (Lab) [address] [place], [address], 10/27/2022 11:36:09 10/28/19 23 10/27/2022 COMPR EHENS JAY METAB OLIC PANEL alanine aminotransfe rase 26 U/L 0-35 Not Available [facility] (Lab) [address] [facility] [place], [address], 10/27/2022 11:36:09 10/28/19 23 10/27/2022 COMPR EHENS JAY METAB OLIC PANEL aspartate aminotransfe rase 30 U/L 15-37 Not Available [facility] (Lab) [address] [place], [address], 10/27/2022 11:36:09 10/28/19 23 10/27/2022 COMPR EHENS JAY METAB OLIC PANEL bilirubin, total 0.50 mg/dL 0.20-1 .30 Not Available [facility] (Lab) [address] [place], [address], 10/27/2022 11:36:09 10/28/19 23 10/27/2022 COMPR EHENS JAY METAB OLIC PANEL calcium 10.2 mg/dL 8.4-10 .2 Not Available [facility] (Lab) [address] [place], [address], 10/27/2022 11:36:09 10/28/19 23 10/27/2022 COMPR EHENS JAY METAB OLIC PANEL total protein 7.7 g/dL 6.3-8. 2 Not Available [facility] (Lab) [address] [place], [address], 10/27/2022 11:36:09 10/28/19 23 10/27/2022 COMPR EHENS JAY METAB OLIC PANEL albumin 4.3 g/dL 3.0-4. 4 Not Available [facility] (Lab) [address] [place], [address], 10/27/2022 11:36:09 10/28/19 23 10/27/2022 COMPR EHENS JAY METAB OLIC PANEL globulin 3.4 g/dL 2.6-4. 2 Not Available [facility] (Lab) [address] [place], [address], 10/27/2022 11:36:09 10/28/19 23 10/27/2022 COMPR EHENS JAY METAB OLIC PANEL A/G ratio 1.3 ratio 1.0-2. 0 Not Available [facility] (Lab) [address] [place], [address], 10/27/2022 11:36:09 10/28/1910/27/2022 MICRO ALBUM IN RANDO M URINE microalbumin , urine <6.0 mg/L 0.0-16 .6 Not Available [facility] (Lab) [address] [place], [address], 10/27/2022 11:51:14 10/28/1910/27/2022 VITAM IN D 25-HY DROXY [id number] 72.2 NG/mL 30-100 Vitam in D Statu s: Defic ient: <20 ng/mL Insuf ficie nt: 20-29 ng/mL Suffi cient : 30-10 0 ng/mL Not Available [facility] (Lab) [address] [place], [address], 10/27/2022 12:04:11 10/28/1910/27/2022 HEMOG LOBIN A1C HA1C 5.8 % 4.0-6. 0 Diabe dany Scree petra Crite vesna: <5.7% Consi stent with absen ce of diabe dany 5.7-6 .4% Consi stent with incre ased risk for diabe dany (pred iabet es) >OR=6 .5% Consi stent with diabe dany REFER ENCE: Diabe dany Care 2016, 39([place] ppl.1 ):s13 -s22 Not Available [facility] (Lab) [address] [place], [address], 10/27/2022 15:55:36 04/08/20 23 04/08/2023 SARS- COV-2 RNA(C OVID1 9),RT -PCR sars-cov-2 RNA(covid19) ,RT-PCR NEGATI VE This test has been autho rized by the FDA under an Emerg ency Use Autho rizat ion (EUA) for use by autho rized labor atori es. Negat jay resul ts do not precl ude SARS- CoV-2 and shoul d not be used as the sole basis for treat ment or other patie nt manag ement decis ions. Test resul ts shoul d be corre lated with the clini shameka histo ry, epide miolo gical data, and other data avail able to the clini demi evalu ating the patie nt. Jody e frank w the Fact Sheet s for healt h care provi ders and patie nts at the [facility] dany: https ://ww w.fda .gov/ media /1363 12/do wnloa d https ://ww w.fda .gov/ media /1363 13/do wnloa d Metho dolog y: Real- Time RT-PC R Not Available [facility] (Lab) [address] [place], [address], 04/08/2023 15:22:18 04/08/20 23 04/08/2023 INFLU YOU A/B ANTIG EN RAPID flu A NEGATI VE negati ve Not Available [facility] (Lab) [address] [place], [address], 04/08/2023 15:26:55 04/08/20 23 04/08/2023 INFLU YOU A/B ANTIG EN RAPID flu B NEGATI VE negati ve THIS TEST CAN NOT DISTI NGUIS H INFLU YOU A VIRUS SUBTY PES. ALSO, PLEAS E NOTE THAT A NEGAT JAY RESUL T DOES NOT EXCLU DE INFLU YOU VIRUS INFEC TION. IF MORE CONCL USIVE TESTI NG IS JAMAL ED, FOLLO W-UP CONFI RMATO RY TESTI NG WITH RT-PC R IS SUGGE STED. Not Available [facility] (Lab) [address] [place], [address], 04/08/2023 15:26:55 04/08/20 23 04/08/2023 INFLU YOU A/B ANTIG EN RAPID valid QC POSITI VE Not Available [facility] (Lab) [address] [place], [address], 04/08/2023 15:26:55 04/08/20 23 04/08/2023 INFLU YOU A/B ANTIG EN RAPID lot # [id number] Not Available [facility] (Lab) [address] [place], [address], 04/08/2023 15:26:55 04/08/20 23 04/08/2023 INFLU YOU A/B ANTIG EN RAPID source MEDIA CONSULTANT SWAB Not Available [facility] (Lab) [address] [place], [address], 04/08/2023 15:26:55 04/10/20 23 04/10/2023 CBC/C OMPLE TE BLD COUNT W/DIF F white blood cells 5.6 x10'3 /uL 4.2-10 .8 Not Available [facility] (Lab) [address] [place], [address], 04/10/2023 11:17:14 04/10/20 23 04/10/2023 CBC/C OMPLE TE BLD COUNT W/DIF F red blood cells 4.63 x10'6 /uL 3.80-5 .20 Not Available [facility] (Lab) [address] [place], [address], 04/10/2023 11:17:14 04/10/20 23 04/10/2023 CBC/C OMPLE TE BLD COUNT W/DIF F hemoglobin 13.9 g/dL 12.0-1 5.6 Not Available [facility] (Lab) [address] [place], [address], 04/10/2023 11:17:14 04/10/20 23 04/10/2023 CBC/C OMPLE TE BLD COUNT W/DIF F hematocrit 43.1 % 35.7-4 5.7 Not Available [facility] (Lab) [address] [place], [address], 04/10/2023 11:17:14 04/10/20 23 04/10/2023 CBC/C OMPLE TE BLD COUNT W/DIF F mean red cell volume 93.1 fL 82.0-9 9.0 Not Available [facility] (Lab) [address] [place], [address], 04/10/2023 11:17:14 04/10/20 23 04/10/2023 CBC/C OMPLE TE BLD COUNT W/DIF F mean red cell hemoglobin 30.0 pg 27.0-3 3.0 Not Available [facility] (Lab) [address] [place], [address], 04/10/2023 11:17:14 04/10/20 23 04/10/2023 CBC/C OMPLE TE BLD COUNT W/DIF F mean RBC HGB concentratio n 32.3 g/dL 31.0-3 6.0 Not Available [facility] (Lab) [address] [place], [address], 04/10/2023 11:17:14 04/10/20 23 04/10/2023 CBC/C OMPLE TE BLD COUNT W/DIF F red cell distribution width 13.4 % 11.8-1 5.5 Not Available [facility] (Lab) [address] [place], [address], 04/10/2023 11:17:14 04/10/20 23 04/10/2023 CBC/C OMPLE TE BLD COUNT W/DIF F platelets 198 x10'3 /uL 150-40 0 Not Available [facility] (Lab) [address] [place], [address], 04/10/2023 11:17:14 04/10/20 23 04/10/2023 CBC/C OMPLE TE BLD COUNT W/DIF F neutrophils 55.8 % 39.0-7 2.0 Not Available [facility] (Lab) [address] [place], [address], 04/10/2023 11:17:14 04/10/20 23 04/10/2023 CBC/C OMPLE TE BLD COUNT W/DIF F lymphocytes 33.4 % 16.0-4 7.0 Not Available [facility] (Lab) [address] [place], [address], 04/10/2023 11:17:14 04/10/20 23 04/10/2023 CBC/C OMPLE TE BLD COUNT W/DIF F monocytes 8.7 % 5.0-12 .0 Not Available [facility] (Lab) [address] [place], [address], 04/10/2023 11:17:14 04/10/20 23 04/10/2023 CBC/C OMPLE TE BLD COUNT W/DIF F eosinophils 1.4 % 1.0-7. 0 Not Available [facility] (Lab) [address] [place], [address], 04/10/2023 11:17:14 04/10/20 23 04/10/2023 CBC/C OMPLE TE BLD COUNT W/DIF F basophils 0.5 % 0.0-2. 0 Not Available [facility] (Lab) [address] [place], [address], 04/10/2023 11:17:14 04/10/20 23 04/10/2023 CBC/C OMPLE TE BLD COUNT W/DIF F immature granulocytes 0.2 % 0.00-0 .50 Not Available [facility] (Lab) [address] [place], [address], 04/10/2023 11:17:14 04/10/20 23 04/10/2023 CBC/C OMPLE TE BLD COUNT W/DIF F neutrophils, absolute count 3.14 x10'3 /uL 1.5-8. 0 Not Available [facility] (Lab) [address] [place], [address], 04/10/2023 11:17:14 04/10/20 23 04/10/2023 CBC/C OMPLE TE BLD COUNT W/DIF F lymphocytes, absolute count 1.88 x10'3 /uL 1.07-3 .43 Not Available [facility] (Lab) [address] [place], [address], 04/10/2023 11:17:14 04/10/20 23 04/10/2023 CBC/C OMPLE TE BLD COUNT W/DIF F monocytes, absolute count 0.49 x10'3 /uL 0.29-0 .99 Not Available [facility] (Lab) [address] [place], [address], 04/10/2023 11:17:14 04/10/20 23 04/10/2023 CBC/C OMPLE TE BLD COUNT W/DIF F eosinophils, absolute count 0.08 x10'3 /uL 0.02-0 .53 Not Available [facility] (Lab) [address] [place], [address], 04/10/2023 11:17:14 04/10/20 23 04/10/2023 CBC/C OMPLE TE BLD COUNT W/DIF F basophils, absolute count 0.03 x10'3 /uL 0.01-0 .08 Not Available [facility] (Lab) [address] [place], [address], 04/10/2023 11:17:14 04/10/20 23 04/10/2023 CBC/C OMPLE TE BLD COUNT W/DIF F immature granulocytes ,absolute 0.01 x10'3 /uL 0.00-0 .05 Not Available [facility] (Lab) [address] [place], [address], 04/10/2023 11:17:14 04/10/20 23 04/10/2023 CBC/C OMPLE TE BLD COUNT W/DIF F nucleated red blood cells 0.0 % -0 Not Available [facility] (Lab) [address] [place], [address], 04/10/2023 11:17:14 04/10/20 23 04/10/2023 CBC/C OMPLE TE BLD COUNT W/DIF F NRBC# 0.00 x10'3 /uL Not Available [facility] (Lab) [address] [place], [address], 04/10/2023 11:17:14 04/10/20 23 04/10/2023 LIPID PANEL cholesterol 194 mg/dL 140-19 9 [facility] NSUS RECOM MENDA TION FOR DAVE STERO L: ADULT CHILD LOW RISK: <200 <170 BORDE RLINE : <200- 239 ----- HIGH RISK: >240 >200 Not Available [facility] (Lab) [address] [place], [address], 04/10/2023 11:19:42 04/10/20 23 04/10/2023 LIPID PANEL triglyceride s 134 mg/dL 0-150 [facility] NSUS REPOR T RECOM MENDA TION FOR TRIGL YCERI GERRY: ADULT CHILD LOW RISK: <150 ----- BODER LINE: 150-1 99 ----- HIGH RISK: >200 ----- Not Available [facility] (Lab) [address] [place], [address], 04/10/2023 11:19:42 04/10/20 23 04/10/2023 LIPID PANEL HDL cholesterol 64 mg/dL 40- Not Available [facility] (Lab) [address] [place], [address], 04/10/2023 11:19:42 04/10/20 23 04/10/2023 LIPID PANEL LDL cholesterol, calculated 103 mg/dL 0-130 [facility] NSUS REPOR T RECOM MENDA TIONS FOR LDL: ADULT CHILD LOW RISK <130 <110 (OPTI MAL LDL) <100 ----- BORDE RLINE : 130-1 59 ----- HIGH RISK: >160 >130 A TRIGL YCERI DE RESUL T >400 INVAL IDATE S THE CALCU LATIO N FOR LDL FRACT IONAT ION - THE LDL RESUL T WILL NOT BE REPOR UMBERTO. Not Available [facility] (Lab) [address] [place], [address], 04/10/2023 11:19:42 04/10/20 23 04/10/2023 COMPR EHENS JAY METAB OLIC PANEL sodium 140 mmol/ L 137-14 5 Not Available [facility] (Lab) [address] [place], [address], 04/10/2023 11:19:49 04/10/20 23 04/10/2023 COMPR EHENS JAY METAB OLIC PANEL potassium 4.2 mmol/ L 3.5-5. 1 Not Available [facility] (Lab) [address] [place], [address], 04/10/2023 11:19:49 04/10/20 23 04/10/2023 COMPR EHENS JAY METAB OLIC PANEL chloride 103 mmol/ L 98-107 Not Available [facility] (Lab) [address] [place], [address], 04/10/2023 11:19:49 04/10/20 23 04/10/2023 COMPR EHENS JAY METAB OLIC PANEL carbon dioxide 30 mmol/ L 22-30 Not Available [facility] (Lab) [address] [place], [address], 04/10/2023 11:19:49 04/10/20 23 04/10/2023 COMPR EHENS JAY METAB OLIC PANEL anion gap 11.2 mmol/ L 14-22 low Not Available [facility] (Lab) [address] [place], [address], 04/10/2023 11:19:49 04/10/20 23 04/10/2023 COMPR EHENS JAY METAB OLIC PANEL glucose 107 mg/dL 70-99 high Not Available [facility] (Lab) [address] [place], [address], 04/10/2023 11:19:49 04/10/20 23 04/10/2023 COMPR EHENS JAY METAB OLIC PANEL BUN 15 mg/dL 8-19 Not Available [facility] (Lab) [address] [place], [address], 04/10/2023 11:19:49 04/10/20 23 04/10/2023 COMPR EHENS JAY METAB OLIC PANEL creatinine 0.78 mg/dL 0.66-1 .25 Not Available [facility] (Lab) [address] [place], [address], 04/10/2023 11:19:49 04/10/20 23 04/10/2023 COMPR EHENS JAY METAB OLIC PANEL GFR >60 Refer ence Range : [place] ge GFR Healt hy Adult : >60 mL/mi n/1.7 3 m2 Chron ic Kidne y Disea se: 15-60 mL/mi n/1.7 3 m2 Kidne y Failu re: <15/m L/min /1.73 m2 www.n iddk. nih.g ov The MDRD study equat ion has not been valid ated in child jay <18 years of age; pregn ant women ; the elder ly >85 years of age; or in some racia l or ethni c subgr oups, such as Hispa nics. Outsi de the valid ated nick eters , estim ated GFR is less accur ate, requi ring clini shameka judgm ent on a case- by-ca se basis . Clini shameka inter preta tion for other races and ages must be made by the clini demi. The MDRD study equat ion has not been valid ated for the evalu ation of serum creat inine relat ed to nutri rashid l statu s or medic ation usage . For perso ns <18 years of age, a pedia tric GFR calcu lator is avail able on the [facility] websi te: https ://sadie w.tommy bowlesy.o chrissie/pr ofess ional s/kdo qi/gf r_cal culat or Not Available [facility] (Lab) [address] [place], [address], 04/10/2023 11:19:49 04/10/20 23 04/10/2023 COMPR EHENS JAY METAB OLIC PANEL alkaline phosphatase 59 U/L 38-126 Not Available [facility] (Lab) [address] [place], [address], 04/10/2023 11:19:49 04/10/20 23 04/10/2023 COMPR EHENS JAY METAB OLIC PANEL alanine aminotransfe rase 42 U/L 0-35 high Not Available [facility] (Lab) [address] [place], [address], 04/10/2023 11:19:49 04/10/20 23 04/10/2023 COMPR EHENS JAY METAB OLIC PANEL aspartate aminotransfe rase 34 U/L 15-37 Not Available [facility] (Lab) [address] [place], [address], 04/10/2023 11:19:49 04/10/20 23 04/10/2023 COMPR EHENS JAY METAB OLIC PANEL bilirubin, total 0.60 mg/dL 0.20-1 .30 Not Available [facility] (Lab) [address] [place], [address], 04/10/2023 11:19:49 04/10/20 23 04/10/2023 COMPR EHENS JAY METAB OLIC PANEL calcium 10.1 mg/dL 8.4-10 .2 Not Available [facility] (Lab) [address] [place], [address], 04/10/2023 11:19:49 04/10/20 23 04/10/2023 COMPR EHENS JAY METAB OLIC PANEL total protein 7.7 g/dL 6.3-8. 2 Not Available [facility] (Lab) [address] [place], [address], 04/10/2023 11:19:49 04/10/20 23 04/10/2023 COMPR EHENS JAY METAB OLIC PANEL albumin 4.2 g/dL 3.0-4. 4 Not Available [facility] (Lab) [address] [place], [address], 04/10/2023 11:19:49 04/10/20 23 04/10/2023 COMPR EHENS JAY METAB OLIC PANEL globulin 3.5 g/dL 2.6-4. 2 Not Available [facility] (Lab) [address] [place], [address], 04/10/2023 11:19:49 04/10/20 23 04/10/2023 COMPR EHENS JAY METAB OLIC PANEL A/G ratio 1.2 ratio 1.0-2. 0 Not Available [facility] (Lab) [address] [place], [address], 04/10/2023 11:19:49 04/10/20 23 04/10/2023 TSH W/REF ROSSANA FT4 TSH with reflex free T4 2.720 uIU/m L 0.465- 4.680 Not Available [facility] (Lab) [address] [place], [address], 04/10/2023 12:03:29 04/10/20 23 04/10/2023 MICRO ALBUM IN RANDO M URINE microalbumin , urine <6.0 mg/L 0.0-16 .6 Not Available [facility] (Lab) [address] [place], [address], 04/10/2023 13:40:39 04/10/20 23 04/10/2023 HEMOG LOBIN A1C HA1C 6.0 % 4.0-6. 0 Diabe dany Scree petra Crite vesna: <5.7% Consi stent with absen ce of diabe dany 5.7-6 .4% Consi stent with incre ased risk for diabe dany (pred iabet es) >OR=6 .5% Consi stent with diabe dany REFER ENCE: Diabe dany Care 2016, 39(Maldonado ppl.1 ):s13 -s22 Not Available [facility] (Lab) [address] [place], [address], 04/10/2023 17:22:46 10/09/19 24 10/09/2023 CBC/C OMPLE TE BLD COUNT W/DIF F white blood cells 5.0 x10'3 /uL 4.2-10 .8 Not Available [facility] (Lab) [address] [place], [address], 10/09/2023 10:13:23 10/09/19 24 10/09/2023 CBC/C OMPLE TE BLD COUNT W/DIF F red blood cells 4.53 x10'6 /uL 3.80-5 .20 Not Available [facility] (Lab) [address] [place], [address], 10/09/2023 10:13:23 10/09/19 24 10/09/2023 CBC/C OMPLE TE BLD COUNT W/DIF F hemoglobin 13.4 g/dL 12.0-1 5.6 Not Available [facility] (Lab) [address] [place], [address], 10/09/2023 10:13:23 10/09/19 24 10/09/2023 CBC/C OMPLE TE BLD COUNT W/DIF F hematocrit 40.1 % 35.7-4 5.7 Not Available [facility] (Lab) [address] [place], [address], 10/09/2023 10:13:23 10/09/19 24 10/09/2023 CBC/C OMPLE TE BLD COUNT W/DIF F mean red cell volume 88.5 fL 82.0-9 9.0 Not Available [facility] (Lab) [address] [place], [address], 10/09/2023 10:13:23 10/09/19 24 10/09/2023 CBC/C OMPLE TE BLD COUNT W/DIF F mean red cell hemoglobin 29.6 pg 27.0-3 3.0 Not Available [facility] (Lab) [address] [place], [address], 10/09/2023 10:13:23 10/09/19 24 10/09/2023 CBC/C OMPLE TE BLD COUNT W/DIF F mean RBC HGB concentratio n 33.4 g/dL 31.0-3 6.0 Not Available [facility] (Lab) [address] [place], [address], 10/09/2023 10:13:23 10/09/19 24 10/09/2023 CBC/C OMPLE TE BLD COUNT W/DIF F red cell distribution width 13.0 % 11.8-1 5.5 Not Available [facility] (Lab) [address] [place], [address], 10/09/2023 10:13:23 10/09/19 24 10/09/2023 CBC/C OMPLE TE BLD COUNT W/DIF F platelets 205 x10'3 /uL 150-40 0 Not Available [facility] (Lab) [address] [place], [address], 10/09/2023 10:13:23 10/09/19 24 10/09/2023 CBC/C OMPLE TE BLD COUNT W/DIF F mean platelet volume 13.5 fL 9.0-12 .4 high Not Available [facility] (Lab) [address] [place], [address], 10/09/2023 10:13:23 10/09/19 24 10/09/2023 CBC/C OMPLE TE BLD COUNT W/DIF F neutrophils 53.0 % 39.0-7 2.0 Not Available [facility] (Lab) [address] [place], [address], 10/09/2023 10:13:23 10/09/19 24 10/09/2023 CBC/C OMPLE TE BLD COUNT W/DIF F lymphocytes 35.6 % 16.0-4 7.0 Not Available [facility] (Lab) [address] [place], [address], 10/09/2023 10:13:23 10/09/19 24 10/09/2023 CBC/C OMPLE TE BLD COUNT W/DIF F monocytes 9.2 % 5.0-12 .0 Not Available [facility] (Lab) [address] [place], [address], 10/09/2023 10:13:23 10/09/19 24 10/09/2023 CBC/C OMPLE TE BLD COUNT W/DIF F eosinophils 1.6 % 1.0-7. 0 Not Available [facility] (Lab) [address] [place], [address], 10/09/2023 10:13:23 10/09/19 24 10/09/2023 CBC/C OMPLE TE BLD COUNT W/DIF F basophils 0.4 % 0.0-2. 0 Not Available [facility] (Lab) [address] [place], [address], 10/09/2023 10:13:23 10/09/19 24 10/09/2023 CBC/C OMPLE TE BLD COUNT W/DIF F immature granulocytes 0.2 % 0.00-0 .50 Not Available [facility] (Lab) [address] [place], [address], 10/09/2023 10:13:23 10/09/19 24 10/09/2023 CBC/C OMPLE TE BLD COUNT W/DIF F neutrophils, absolute count 2.65 x10'3 /uL 1.5-8. 0 Not Available [facility] (Lab) [address] [place], [address], 10/09/2023 10:13:23 10/09/19 24 10/09/2023 CBC/C OMPLE TE BLD COUNT W/DIF F lymphocytes, absolute count 1.78 x10'3 /uL 1.07-3 .43 Not Available [facility] (Lab) [address] [place], [address], 10/09/2023 10:13:23 10/09/19 24 10/09/2023 CBC/C OMPLE TE BLD COUNT W/DIF F monocytes, absolute count 0.46 x10'3 /uL 0.29-0 .99 Not Available [facility] (Lab) [address] [place], [address], 10/09/2023 10:13:23 10/09/19 24 10/09/2023 CBC/C OMPLE TE BLD COUNT W/DIF F eosinophils, absolute count 0.08 x10'3 /uL 0.02-0 .53 Not Available [facility] (Lab) [address] [place], [address], 10/09/2023 10:13:23 10/09/19 24 10/09/2023 CBC/C OMPLE TE BLD COUNT W/DIF F basophils, absolute count 0.02 x10'3 /uL 0.01-0 .08 Not Available [facility] (Lab) [address] [place], [address], 10/09/2023 10:13:23 10/09/19 24 10/09/2023 CBC/C OMPLE TE BLD COUNT W/DIF F immature granulocytes ,absolute 0.01 x10'3 /uL 0.00-0 .05 Not Available [facility] (Lab) [address] [place], [address], 10/09/2023 10:13:23 10/09/19 24 10/09/2023 CBC/C OMPLE TE BLD COUNT W/DIF F nucleated red blood cells 0.0 % -0 Not Available [facility] (Lab) [address] [place], [address], 10/09/2023 10:13:23 10/09/19 24 10/09/2023 CBC/C OMPLE TE BLD COUNT W/DIF F NRBC# 0.00 x10'3 /uL Not Available [facility] (Lab) [address] [place], [address], 10/09/2023 10:13:23 10/09/19 24 10/09/2023 LIPID PANEL cholesterol 177 mg/dL 140-19 9 [facility] NSUS RECOM MENDA TION FOR DAVE STERO L: ADULT CHILD LOW RISK: <200 <170 BORDE RLINE : <200- 239 ----- HIGH RISK: >240 >200 Not Available [facility] (Lab) [address] [place], [address], 10/09/2023 10:54:46 10/09/19 24 10/09/2023 LIPID PANEL triglyceride s 92 mg/dL 0-150 [facility] NSUS REPOR T RECOM MENDA TION FOR TRIGL YCERI GERRY: ADULT CHILD LOW RISK: <150 ----- BODER LINE: 150-1 99 ----- HIGH RISK: >200 ----- Not Available [facility] (Lab) [address] [place], [address], 10/09/2023 10:54:46 10/09/19 24 10/09/2023 LIPID PANEL HDL cholesterol 70 mg/dL 40- Not Available [facility] (Lab) [address] [place], [address], 10/09/2023 10:54:46 10/09/19 24 10/09/2023 LIPID PANEL LDL cholesterol, calculated 89 mg/dL 0-130 [facility] NSUS REPOR T RECOM MENDA TIONS FOR LDL: ADULT CHILD LOW RISK <130 <110 (OPTI MAL LDL) <100 ----- CALI RLINE : 130-1 59 ----- HIGH RISK: >160 >130 A TRIGL YCERI DE RESUL T >400 INVAL IDATE S THE CALCU LATIO N FOR LDL FRACT IONAT ION - THE LDL RESUL T WILL NOT BE REPOR UMBERTO. Not Available [facility] (Lab) [address] [place], [address], 10/09/2023 10:54:46 10/09/19 24 10/09/2023 COMPR EHENS JAY METAB OLIC PANEL sodium 139 mmol/ L 137-14 5 Not Available [facility] (Lab) [address] [place], [address], 10/09/2023 10:59:00 10/09/19 24 10/09/2023 COMPR EHENS JAY METAB OLIC PANEL potassium 4.3 mmol/ L 3.5-5. 1 Not Available [facility] (Lab) [address] [place], [address], 10/09/2023 10:59:00 10/09/19 24 10/09/2023 COMPR EHENS JAY METAB OLIC PANEL chloride 107 mmol/ L 98-107 Not Available [facility] (Lab) [address] [place], [address], 10/09/2023 10:59:00 10/09/19 24 10/09/2023 COMPR EHENS JAY METAB OLIC PANEL carbon dioxide 29 mmol/ L 22-30 Not Available [facility] (Lab) [address] [place], [address], 10/09/2023 10:59:00 10/09/19 24 10/09/2023 COMPR EHENS JAY METAB OLIC PANEL anion gap 7.3 mmol/ L 14-22 low Not Available [facility] (Lab) [address] [place], [address], 10/09/2023 10:59:00 10/09/19 24 10/09/2023 COMPR EHENS JAY METAB OLIC PANEL glucose 110 mg/dL 70-99 high Not Available [facility] (Lab) [address] [place], [address], 10/09/2023 10:59:00 10/09/19 24 10/09/2023 COMPR EHENS JAY METAB OLIC PANEL BUN 14 mg/dL 8-19 Not Available [facility] (Lab) [address] [place], [address], 10/09/2023 10:59:00 10/09/19 24 10/09/2023 COMPR EHENS JAY METAB OLIC PANEL creatinine 0.80 mg/dL 0.66-1 .25 Not Available [facility] (Lab) [address] [place], [address], 10/09/2023 10:59:00 10/09/19 24 10/09/2023 COMPR EHENS JAY METAB OLIC PANEL GFR >60 Refer ence Range : [place] ge GFR Healt hy Adult : >60 mL/mi n/1.7 3 m2 Chron ic Kidne y Disea se: 15-60 mL/mi n/1.7 3 m2 Kidne y Failu re: <15/m L/min /1.73 m2 www.n iddk. nih.g ov The MDRD study equat ion has not been valid ated in child jay <18 years of age; pregn ant women ; the elder ly >85 years of age; or in some racia l or ethni c subgr oups, such as Hispa nics. Outsi de the valid ated nick eters , estim ated GFR is less accur ate, requi ring clini shameka judgm ent on a case- by-ca se basis . Clini shameka inter preta tion for other races and ages must be made by the clini demi. The MDRD study equat ion has not been valid ated for the evalu ation of serum creat inine relat ed to nutri rashid l statu s or medic ation usage . For perso ns <18 years of age, a pedia tric GFR calcu lator is avail able on the [facility] websi te: https ://ww w.kid salvador.o rg/pr ofess ional s/kdo qi/gf r_cal culat or Not Available [facility] (Lab) [address] [place], [address], 10/09/2023 10:59:00 10/09/19 24 10/09/2023 COMPR EHENS JAY METAB OLIC PANEL alkaline phosphatase 41 U/L 38-126 Not Available [facility] (Lab) [address] [place], [address], 10/09/2023 10:59:00 10/09/19 24 10/09/2023 COMPR EHENS JAY METAB OLIC PANEL alanine aminotransfe rase 25 U/L 0-35 Not Available [facility] (Lab) [address] [place], [address], 10/09/2023 10:59:00 10/09/19 24 10/09/2023 COMPR EHENS JAY METAB OLIC PANEL aspartate aminotransfe rase 33 U/L 15-37 Not Available [facility] (Lab) [address] [place], [address], 10/09/2023 10:59:00 10/09/19 24 10/09/2023 COMPR EHENS JAY METAB OLIC PANEL bilirubin, total 0.70 mg/dL 0.20-1 .30 Not Available [facility] (Lab) [address] [place], [address], 10/09/2023 10:59:00 10/09/19 24 10/09/2023 COMPR EHENS JAY METAB OLIC PANEL calcium 9.6 mg/dL 8.4-10 .2 Not Available [facility] (Lab) [address] [place], [address], 10/09/2023 10:59:00 10/09/19 24 10/09/2023 COMPR EHENS JAY METAB OLIC PANEL total protein 7.0 g/dL 6.3-8. 2 Not Available [facility] (Lab) [address] [place], [address], 10/09/2023 10:59:00 10/09/19 24 10/09/2023 COMPR EHENS JAY METAB OLIC PANEL albumin 4.3 g/dL 3.0-4. 4 Not Available [facility] (Lab) [address] [place], [address], 10/09/2023 10:59:00 10/09/19 24 10/09/2023 COMPR EHENS JAY METAB OLIC PANEL globulin 2.7 g/dL 2.6-4. 2 Not Available [facility] (Lab) [address] [place], [address], 10/09/2023 10:59:00 10/09/19 24 10/09/2023 COMPR EHENS JAY METAB OLIC PANEL A/G ratio 1.6 ratio 1.0-2. 0 Not Available [facility] (Lab) [address] [place], [address], 10/09/2023 10:59:00 10/09/19 24 10/09/2023 TSH W/REF ROSSANA FT4 TSH with reflex free T4 3.110 uIU/m L 0.465- 4.680 Not Available [facility] (Lab) [address] [place], [address], 10/09/2023 11:30:46 10/09/19 24 10/09/2023 HEMOG LOBIN A1C HA1C 6.0 % 4.0-6. 0 Diabe dany Scree petra Crite vesna: <5.7% Consi stent with absen ce of diabe dany 5.7-6 .4% Consi stent with incre ased risk for diabe dany (pred iabet es) >OR=6 .5% Consi stent with diabe dany REFER ENCE: Diabe dany Care 2016, 39(Maldonado ppl.1 ):s13 -s22 Not Available [facility] (Lab) [address] [place], [address], 10/09/2023 11:36:48 10/09/19 24 10/09/2023 MICRO ALBUM IN RANDO M URINE microalbumin , urine <6.0 mg/L 0.0-16 .6 Not Available [facility] (Lab) [address] [place], [address], 10/09/2023 12:35:02 11/18/19 23 11/17/2022 screshannon lambert breas t abelardo, bilat [facility] [address] [place] [address] [phone] Patien t Name: JOHN KLEIN Access ion #: [id number] Sex: F : 1950 11 Dictat ed By: Sadie Veronica ing Physic toribio: AMARILIS MCGUIRE Orderi ng Physic toribio: AMARILIS King, KARTHIK ROSALES Exam Date: 2022 08:27 AM Exam Name: MG HARRIS BREAST ABELARDO BILAT Admitt ing Diagno sis(es ): CLINIC AL HISTOR Y: Screen ing exam, no breast compla ints. No person al histor y of breast cancer or prior breast interv ention . No family histor y of breast cancer . COMPAR FATOU: Prior mammog nava dated 022 and 020. TECHNI QUE: Digita l breast tomosy nthesi s was perfor med. Synthe sized CC and MLO images were create d from the tomosy nthesi s images . CAD was utiliz ed. FINDIN GS: There are scatte red fibrog landul ar densit ies (categ ory B). No suspic ious mass, cher ectura l distor tion, or suspic ious microc alcifi cation s are seen. The axilla e, skin and nipple s are normal . IMPRES TAYE: Normal mammog morales. RECOMM ENDATI ONS: In the absenc e of new breast compla ints, annual screen ing is recomm ended. The patien t will be notifi ed of the mammog lorie result s per hospit al protoc ol. BI-RAD S CATEGO RY: 1: Negati ve. Electr onical ly Signed by: Sadie east at 2022 09:25: 40 AM Page 1 [email or web address] [facility] (Imaging) [address] [place], [address], 12/11/2022 09:32:35 11/18/19 23 11/17/2022 MAMMO , scree petra, digit al, bilat eral No observ ation record ed. [email or web address] [facility] [address] [place], [address], 12/11/2022 09:32:36 01/22/20 23 01/21/2023 US, echoc ardio gram No observ ation record ed. [email or web address] [facility] [address], [place], [address], 04/14/2023 10:24:54 01/22/20 23 01/21/2023 US, [place] chowdary, candido id arter y No observ ation record ed. [email or web address] [facility] [address], [place], [address], 04/14/2023 10:24:54 07/15/19 24 07/14/2023 imagi ng/di agnos tic resul t No observ ation record ed. [facility] [address] [place], [address], 07/15/2023 09:00:15 Result Notes None recorded. Problems Name Problem SNOMED Code Status Onset Date Resolution Date Notes Provider Name and Address Organization Details Recorded Time Generaliz ed anxiety disorder 25010325 Active 2021 Not Available [facility] 3 13:38:54 Foot callus 244126885 Active 2021 Not Available [facility] 3 13:38:54 Gastroeso phageal reflux disease 435551355 Active Not Available [facility] 3 13:38:54 Vitamin D deficienc y 27819159 Active 2022 Not Available [facility] 3 13:38:54 Arthritis 6534112 Active 2019 Not Available [facility] 3 13:38:54 Gastric ulcer 433118831 Active 2019 Not Available [facility] 3 13:38:54 Vertigo 599699114 Active Not Available [facility] 3 13:38:54 Dizziness 971834335 Active 2021 Not Available [facility] 3 13:38:54 Bunion 190814065 Active 2021 Not Available [facility] 3 13:38:54 Hyperlipi demia 17125275 Active Not Available [facility] 3 13:38:55 Osteoporo sis 22159022 Active 2021 Not Available [facility] 3 13:38:55 Prediabet es 409532460 Active 2021 Not Available [facility] 3 13:38:55 Diabetes mellitus 28731573 Active Not Available [facility] 3 13:38:55 Palpitati ons 20326595 Active 2019 CARDIOLOGY DID NOT FIND ANYTHING WITH HEART Not Available [facility] 3 13:38:55 Gastroeso phageal reflux disease without esophagit is 479269276 Active 2022 Not Available [facility] 3 13:38:54 Visual impairmen t 932332232 Active 2022 Not Available [facility] 3 13:38:54 Proteinur ia 98244550 Active 2022 Not Available [facility] 3 13:38:54 Environme ntal allergy 414993620 Active 2022 Not Available [facility] 3 13:38:55 Liver enzymes level above reference range 354106422 Active 2022 Not Available [facility] 3 13:38:55 Essential hypertens ion 63016421 Active 2022 Not Available [facility] 3 13:38:55 Upper respirato ry infection 60976327 Active 2022 Selena garibay, [employer] 3 14:01:05 Toothache 86631036 Active 2023 TAISHA Uribe, [employer] [facility] 4 12:39:49 Problem Notes None recorded. Procedures Surgical History Date Name Laterality Status Provider Name and Address Organization Details Recorded Time 10/13/19 Medicare Wellness CPT Code, subsequent completed Hector Melendez LPN [facility] 10/09/2023 08:51:01 10/13/19 24 Advanced Care Planning completed Hector Melendez LPN [employer] 10/13/2023 10:51:42 01/17/20 Most Recent Bone Density completed Not Available [facility] 07/02/2022 02:30:56 12/15/19 Date of Last Colonoscopy completed Not Available [facility] 07/02/2022 02:30:55 Tonsillectomy completed Not Available [facility] 07/02/2022 02:30:59 Imaging Results Imaging Date Name Status LastModified by Organization Details LastModified Time 11/17/2022 screening breast abelardo, bilat completed [email or web address] [facility] ([facility]) [address] [place], [address], 12/11/2022 09:32:35 11/17/2022 MAMMO, screening, digital, bilateral completed [email or web address] [facility] [address] [place], [address], 12/11/2022 09:32:36 01/21/2023 US, echocardiogram completed [email or web address] [address], [place], [address], 04/14/2023 10:24:54 01/21/2023 US, duplex, carotid artery [email or web address] [address], [place], [address], 04/14/2023 10:24:54 07/14/2023 imaging/diagnostic result active [facility] [address] [place], [address], 07/15/2023 09:00:15 Procedure Notes None recorded. Medical Equipment None Reported. Allergies No known drug allergies Medications Name Sig Start Date Stop Date Status Note LastModified by Organization Details LastModified Time amoxicillin 500 mg capsule TAKE 1 CAPSULE BY MOUTH THREE TIMES A DAY FOR 5 DAYS 10/12 completed Not Available Not Available Not Available metformin 500 mg tablet TAKE 1 TABLET BY MOUTH TWICE A DAY 07/24 completed Not Available Not Available Not Available carvedilol 6.25 mg tablet TAKE 1 TABLET BY MOUTH TWICE A DAY 11/11 completed Not Available Not Available Not Available doxycycline hyclate 100 mg capsule TAKE 1 CAPSULE BY MOUTH EVERY DAY 02/08 completed Not Available Not Available Not Available azithromyci n 250 mg tablet TAKE 2 TABLETS BY MOUTH TODAY, THEN TAKE 1 TABLET DAILY FOR 4 DAYS DIRECTED 02/08 completed Not Available Not Available Not Available lovastatin 40 mg tablet TAKE 1 TABLET BY MOUTH EVERY DAY active Not Available Not Available No t Available ciprofloxac in 500 mg tablet TAKE 1 TABLET BY MOUTH EVERY 12 HOURS FOR 7 DAYS 01/02 completed Not Available Not Available Not Available aspirin 81 mg tablet,yesica yed release Take 1 tablet every day by oral route. 2019 active Not Available Not Available Not Avai lable tramadol 50 mg tablet TAKE 1 TO 2 TABLETS BY MOUTH EVERY 4 TO 6 HOURS NEEDED FOR PAIN 10/12 completed Not Available Not Available Not Available amoxicillin 500 mg tablet TAKE 1 TABLET BY MOUTH EVERY 8 HOURS UNTIL GONE 10/12 completed Not Available Not Available Not Available carvedilol 3.125 mg tablet TAKE 1 TABLET BY MOUTH TWICE A DAY active Not Available Not Available No t Available meloxicam 7.5 mg tablet TAKE 1 TABLET BY MOUTH TWICE A DAY NEEDED ONLY TAKE WITH FOOD active Not Available Not Available No t Available alprazolam 0.25 mg tablet TAKE 1 TABLET BY MOUTH EVERY DAY NEEDED FOR 30 DAYS active Not Available Not Available No t Available meclizine 25 mg tablet Take 1 tablet twice a day by oral route as needed for 15 days. active Not Available Not Available No t Available omeprazole 20 mg capsule,del ayed release TAKE 1 CAPSULE BY MOUTH EVERY DAY NEEDED active Not Available Not Available No t Available ergocalcife rol (vitamin D2) 1,250 mcg (50,000 unit) capsule TAKE 1 CAPSULE BY MOUTH ONE TIME PER WEEK FOR 90 DAYS active Not Available Not Available No t Available lovastatin 20 mg tablet TAKE 1 TABLET BY MOUTH EVERY DAY active Not Available Not Available No t Available methylpredn isolone 4 mg tablets in a dose pack TAKE 6 TABLETS ON DAY 1 DIRECTED ON PACKAGE AND DECREASE BY 1 TAB EACH DAY FOR A TOTAL OF 6 DAYS 01/02 completed Not Available Not Available Not Available ondansetron 4 mg disintegrat ing tablet TAKE 1 TABLET BY MOUTH EVERY 8 HOURS NEEDED FOR NAUSEA AND VOMITING active Not Available Not Available No t Available fluticasone propionate 50 mcg/actuati on nasal spray,suspe nsion SPRAY 1 SPRAY EACH NOSTRIL ONCE DAILY NEEDED active Not Available Not Available No t Available metformin ER 500 mg tablet,exte nded release 24 hr TAKE 1 TABLET BY MOUTH TWICE A DAY active Not Available Not Available No t Available lisinopril 2.5 mg tablet TAKE 1 TABLET BY MOUTH EVERY DAY active Not Available Not Available No t Available calcitriol 0.25 mcg capsule TAKE 1 CAPSULE BY MOUTH EVERY DAY active Not Available Not Available No t Available loratadine 10 mg tablet TAKE 1 TABLET BY MOUTH EVERY DAY NEEDED active Not Available Not Available No t Available amoxicillin 875 mg-potassiu m clavulanate 125 mg tablet TAKE 1 TABLET BY MOUTH EVERY 12 HOURS 02/08 completed Not Available Not Available Not Available chlorhexidi ne gluconate 0.12 % mouthwash RINSE MOUTH THOROUGHL Y WITH 15 ML (1/2) OZ FOR 1 MINUTE THEN SPIT 3 TIMES A DAY FOR 2 WEEKS 10/12 completed Not Available Not Available Not Available Vitamin D 400MG DAILY 2019 active Not Available Not Available Not Avai lable Prolia 60 mg/mL subcutaneou s syringe INJECT 1 SYRINGE UNDER THE SKIN ONCE EVERY 6 MONTHS 2024 active Not Available Not Available Not Avai lable vitamin E (dl, acetate) 450 mg (1,000 unit) capsule TAKE 1 CAPSULE BY MOUTH EVERY DAY active Not Available Not Available No t Available Fluzone High-Dose 2018- (PF) 180 mcg/0.5 mL intramuscul ar syringe ADM 0.5ML IM UTD 12/05 completed Not Available Not Available Not Available Fluzone High-Dose Quad 2019- (PF) 240 mcg/0.7 mL IM syringe active Not Available Not Available N ot Available Vitals Date Recorded Body height Body mass index (BMI) Body weight Body temperature Heart rate Systolic blood pressure Diastolic blood pressure Provider Name and Address Organization Details Last Updated DateTime 3 152.4 cm 24.4 kg/m2 15539.0 5 g 97.6 [degF] 78 /min 118 mm[Hg] 60 mm[Hg] TAISHA Uribe [place] - [facility] [employer] [facility] 3 10:39:52 Date Recorded Body height Body mass index (BMI) Body weight Body temperature Heart rate Systolic blood pressure Diastolic blood pressure Provider Name and Address Organization Details Last Updated DateTime 3 152.4 cm 25.4 kg/m2 98101.0 1 g 97.4 [degF] 78 /min 100 mm[Hg] 60 mm[Hg] Demetra MenjivarTAISHA [facility] [employer] [facility] 3 10:20:54 Date Recorded Body height Body mass index (BMI) Body weight Body temperature Heart rate Systolic blood pressure Diastolic blood pressure Provider Name and Address Organization Details Last Updated DateTime 4 152.4 cm 24.8 kg/m2 80492.2 3 g 97.3 [degF] 72 /min 110 mm[Hg] 60 mm[Hg] Demetra MenjivarTAISHA [facility] [employer] [facility] 4 10:26:15 Date Recorded Pain severity - 0-10 verbal numeric rating [Score] - Reported Provider Name and Address Organization Details Last Updated DateTime 10/13/2023 0 Hector Melendez LPN [facility] [employer] [facility] 10/13/2023 10:49:07 Date Recorded Body height Body mass index (BMI) Body weight Body temperature Heart rate Systolic blood pressure Diastolic blood pressure Provider Name and Address Organization Details Last Updated DateTime 4 152.4 cm 24.2 kg/m2 01685.4 5 g 97.2 [degF] 72 /min 120 mm[Hg] 68 mm[Hg] Demetra Menjivar Markell [facility] [employer] [facility] 4 10:24:07 Date Recorded Body height Body mass index (BMI) Body weight Body temperature Heart rate Oxygen saturation Oxygen saturation in Arterial blood by Pulse oximetry Pain severity - 0-10 verbal numeric rating [Score] - Reported Systolic blood pressure Diastolic blood pressure Provider Name and Address Organization Details Last Updated DateTime 5 152.4 cm 25.5 kg/m2 12671.8 g 98.1 [degF] 74 /min 98 % 98 % 0 112 mm[Hg] 66 mm[Hg] Shante Smith MA [facility] [employer] [facility] 5 10:13:39 Social History Question Answer Notes LastModified by Organization Details LastModified Time Tobacco Smoking Status Never Smoker Not Available [facility] 07/02/2022 02:25:23 Do You Have An Advance Directive? No MIGRATION.0301 [id number] Information not available 07/02/2022 What Is Your Level Of Alcohol Consumption? None MIGRATION.0301 [id number] Information not available 07/02/2022 Do You Wear A Helmet When Biking? No N/A [email or web address] Information not available 10/13/2023 Are You Blind Or Do You Have Difficulty Seeing? No MIGRATION.0301 564605 Information not available 07/02/2022 What Is Your Level Of Caffeine Consumption? None MIGRATION.0301 [id number] Information not available 07/02/2022 How Much Tobacco Do You Chew? None MIGRATION.0301 507486 Information not available 07/02/2022 In The 14 Days Before Symptom Onset, Have You Had Close Contact With A Laboratory-confi rmed COVID-19 While That Case Was Ill? No MIGRATION.0301 [id number] Information not available 07/02/2022 In The 14 Days Before Symptom Onset, Have You Had Close Contact With A Person Who Is Under Investigation For COVID-19 While That Person Was Ill? No MIGRATION.0301 [id number] Information not available 07/02/2022 Are You Currently Employed? No [email or web address] Information not available 10/13/2023 Are You Deaf Or Do You Have Serious Difficulty Hearing? No MIGRATION.0301 278392 Information not available 07/02/2022 What Type Of Diet Are You Following? REGULAR MIGRATION.030 870595 Information not available 07/02/2022 Which Illicit Or Recreational Drugs Have You Used? None MIGRATION.0301 [id number] Information not available 07/02/2022 Do You Or Have You Ever Used E-cigarettes Or Vape? Never Used Electronic Cigarettes MIGRATION.030 130538 Information not available 07/02/2022 What Is The Highest Grade Or Level Of School You Have Completed Or The Highest Degree You Have Received? AN52203-3 [email or web address] Information not available 10/13/2023 What Is Your Occupation? Retired MIGRATION.030 604342 Information not available 07/02/2022 Have There Been Any Changes To Your Family Or Social Situation? No MIGRATION.0301 301930 Information not available 07/02/2022 What Is The Fluoride Status Of Your Home? Unknown MIGRATION.0301 529328 Information not available 07/02/2022 Are There Any Guns Present In Your Home? No MIGRATION.0301 992139 Information not available 07/02/2022 Do You Use Insect Repellent Routinely? Yes Information not available 10/13/2023 Where Do You Live? SingleLevelHouse MIGRATION.0301 138481 Information not available 07/02/2022 Presence Of Domestic Violence No [email or web address] Information not available 10/13/2023 Guns Present In The Home? No [email or web address] Information not available 10/13/2023 Are You Able To Care For Yourself? Yes [email or web address] Information not available 10/13/2023 Are You Blind Or Do Yo Have Difficulty Seeing? No [email or web address] Information not available 10/13/2023 Are You Deaf Or Do You Have Serious Difficulty Hearing? No [email or web address] Information not available 10/13/2023 General Stress Level? Low [email or web address] Information not available 10/13/2023 Live Alone Of With Others? With Others [email or web address] Information not available 10/13/2023 Do You Have A Medical Power Of Manager Education? No MIGRATION.0301 [id number] Information not available 07/02/2022 What Was The Date Of Your Most Recent Tobacco Screening? 06/14/2024 [email or web address] Information not available 06/14/2024 Do You Have Any Pets? Yes Outside Cat, Dog [email or web address] Information not available 10/13/2023 What Is Your Relationship Status? MIGRATION.0301 021600 Information not available 07/02/2022 Do You Use Your Seat Belt Or Car Seat Routinely? Yes MIGRATION.0301 088666 Information not available 07/02/2022 Do You Have Smoke And Carbon Monoxide Detectors In Your Home? Yes MIGRATION.0301 271440 Information not available 07/02/2022 Are You Passively Exposed To Smoke? No MIGRATION.0301 421147 Information not available 07/02/2022 Do You Or Have You Ever Used Smokeless Tobacco? Never Used Smokeless Tobacco MIGRATION.0301 498136 Information not available 07/02/2022 Are There Any Smokers In Your House? No MIGRATION.0301 544142 Information not available 07/02/2022 How Much Tobacco Do You Smoke? No MIGRATION.0301 410415 Information not available 07/02/2022 What Types Of Sporting Activities Do You Participate In? None [email or web address] Information not available 10/13/2023 Do You Feel Stressed (tense, Restless, Nervous, Or Anxious, Or Unable To Sleep At Night)? [id number] MIGRATION.0301 872708 Information not available 07/02/2022 Do You Use Any Illicit Or Recreational Drugs? No MIGRATION.0301 422511 Information not available 07/02/2022 Do You Use Sunscreen Routinely? Yes MIGRATION.0301 980152 Information not available 07/02/2022 Has Tobacco Cessation Counseling Been Provided? No N/a MIGRATION.0301 802140 Information not available 07/02/2022 Have You Recently Traveled Abroad? No MIGRATION.0301 018051 Information not available 07/02/2022 Do You Have Any Dietary Restrictions? No MIGRATION.0301 642675 Information not available 07/02/2022 Do You Or Have You Ever Used Any Other Forms Of Tobacco Or Nicotine? No MIGRATION.0301 564924 Information not available 07/02/2022 Sex: Female Functional Status Question Answer Note LastModified by Organizat ion Details LastModified Time Do you have difficulty walking or climbing stairs? No MIGRATION.635834 7910 Information not available 07/02/2022 Do you have transportation difficulties? No MIGRATION.642718 1772 Information not available 07/02/2022 Are you able to walk? YESWOREST MIGRATION.077894 5143 Information not available 07/02/2022 Do you have difficulty doing errands alone? No MIGRATION.712340 3563 Information not available 07/02/2022 Are you able to care for yourself? Yes MIGRATION.115004 8297 Information not available 07/02/2022 Do you have difficulty dressing or bathing? No MIGRATION.797323 9004 Information not available 07/02/2022 What is your exercise level? Occasional walking MIGRATION.147353 2726 Information not available 07/02/2022 Mental Status Question Answer Note LastModified by Organization D etails LastModified Time Do you have difficulty concentrating, remembering or making decisions? Yes [email or web address] Information no t available 10/13/2023 Family History Relationship Description Onset Age of this Age Resolved Age Notes LastModified by Organization Details LastModified Time Mother Prediabetes MIGRATION.03 0 [id number] Not available 07/02/2022 02:31:01 Medical History Condition Response NERVE DISEASE N BLINDNESS N RHEUMATIC FEVER N KIDNEY STONES N BLADDER PROBLEMS N MRSA N OTHER # 1 N POLIO N LUNG DISEASE/DISORDER N HISTORY OF DRUG ABUSE N COPD N RADIATION / CHEMOTHERAPY N Other # 2 N BLOOD DISEASES N EAR OR HEARING PROBLEMS N MUMPS N SHINGLES N BOWEL PROBLEMS N DEPRESSION (INCLUDING POST ) N STROKE/TIA N ULCERS N BENIGN PROSTATIC HYPERPLASIA N MEASLES N HYPOTENSION N MYOCARDIAL INFARCTION N OBESITY N GERD/NAUSEA Y ANEURYSM N URINARY/BLADDER/KIDNEY PROBLEMS N CORONARY ARTERY DISEASE (CAD) N ADDICTION CONCERNS N ENDOMETRIOSIS N Impotence N USE OF BLOOD THINNERS N SKIN PROBLEMS N GASTROINTESTINAL DISORDER N PERIPHERAL VASCULAR DISEASE N MUSCLE,JOINT OR BONE PROBLEMS N GASTROINTESTINAL BLEEDING N BLOOD CLOTS N ASTHMA N CATARACTS N ERECTILE DYSFUNCTION N VARICOSITIES N GI PROBLEMS N Low Testosterone N INFERTILITY N AIDS/HIV N CHEMOTHERAPY / RADIATION N LIVER DISEASE N MALE HYPOGONADISM N HYPERTENSION N Deficiency N TOURETTE'S N ANXIETY DISORDER Y BLOOD TRANSFUSION N ANEMIA/BLOOD DISORDER N CHRONIC EAR INFECTIONS N BRONCHITIS N TUBERCULOSIS N GLAUCOMA N FOOT PROBLEM N DIVERTICULITIS N CHICKENPOX N SLEEP APNEA N INFECTIOUS DISEASE N HEART ARRHYTHMIA N PROSTATE N INSOMNIA N HIGH CHOLESTEROL / HYPERLIPIDEMIA Y HYPERTHYROIDISM N EYE PROBLEMS N EDEMA N CHRONIC PAIN SYNDROME N HYPOTHYROIDISM N CAROTID BLOCKAGE N CONSTIPATION N BACK / NECK PROBLEMS Y ATHEROSCLEROSIS N BREAST PROBLEMS N DIALYSIS N ECZEMA N OSTEOPOROSIS N ARTHRITIS N APPENDICITIS N DIABETES, TYPE N BAD TEETH N ENT N HEARTBURN / REFLUX N AUTISM SPECTRUM DISORDER (ASD) N HEPATITIS / LIVER DISEASE N GOUT N SLEEP DISORDER N ALZHEIMER'S DISEASE N Brain Problems N HERPES N DEMENTIA N HEADACHES/MIGRAINES N SEIZURES/EPILEPSY N VASCULAR DISEASE N PACEMAKER N Blood Disorder N DIZZINESS Y HEART DISEASE/HEART PROBLEMS N KIDNEY DISEASE N MULTIPLE SCLEROSIS N CARDIAC ARRHYTHMIA N CANCER: SPECIFY N ATRIAL FIBRILLATION N Gall Stones N PULMONARY EMBOLISM N AUTOIMMUNE DISEASE N Gynecological History Statement/Question Response How many live births 2 Date of Last Mammogram 10/31/2021 Date of Last Colonoscopy 12/15/2019 Date of LMP Most Recent Bone Density 01/16/2022 Date of Last Pap Current Control Method Menopause Obstetrics History GPAL:G 2 P 2 0 0 2 Type Value Multiple Births 0 Full Term 2 Induced 0 Spontaneous 0 Premature 0 Living 2 Ectopics 0 Total 2 Immunizations Vaccine Type Date Status Note Provider Nam e and Address Organization Details Recorded Time COVID-19, mRNA, LNP-S, PF, 30 mcg/0.3 mL dose 1 completed Not Available [facility] 01/20/2023 02:37:57 COVID-19, mRNA, LNP-S, PF, 30 mcg/0.3 mL dose 2 completed Not Available [facility] 01/20/2023 02:37:57 Influenza, high-dose, quadrivalent, PF 2 completed Not Available [facility] 01/20/2023 02:37:57 COVID-19, mRNA, LNP-S, PF, 100 mcg/0.5mL dose or 50 mcg/0.25mL dose 1 completed Not Available [facility] 01/20/2023 02:37:57 Influenza, high-dose, trivalent, PF 0 completed Not Available [facility] 01/20/2023 02:37:58 Influenza, high-dose, trivalent, PF 9 completed Not Available [facility] 01/20/2023 02:37:58 Pneumococcal conjugate PCV 13 9 completed Not Available [facility] 01/20/2023 02:37:58 pneumococcal polysaccharide PPV23 2 completed Not Available [facility] 01/20/2023 02:37:57 Influenza, high-dose, quadrivalent, PF 1 completed Not Available [facility] 01/20/2023 02:37:57 Influenza, high-dose, quadrivalent, PF 3 completed ATISHA Uribe, [place] [employer] [facility] [employer] 04/14/2023 10:35:48 Tdap 9 completed TAISHA Uribe, [employer] [facility] [employer] [facility] 04/14/2023 10:36:21 Influenza, high-dose, trivalent, PF 4 completed Francisco Nowak MD [address], [address], [facility] [employer] [facility] [employer] 02/09/2024 10:57:42 Past Encounters Encounter ID Performer Location Encounter Start Date Encounter Closed Date Diagnosis/Indication Diagnosis SNOMED-CT Code Diagnosis ICD10 Code Diagnosis Note [id number] [facility] Yu parker [address] [place] [address] [facility] [place] [address] 07/16/2020 00:00:00 07/16/2020 18:53:42 [id number] [facility] [address] [place] [address] Ave[address] [facility] [address] [place] [address] 07/24/2020 00:00:00 07/30/2020 17:32:41 [id number] [facility] [address] [place], [place] [address]e., [address] [address] 11/20/2020 00:00:00 11/21/2020 13:43:33 [id number] [facility] [address] [place], [place] [address]., [address] [address] 02/19/2021 00:00:00 02/19/2021 17:14:10 [id number] [facility] [address] [place], [place] [address]., [address] [address] 06/18/2021 00:00:00 06/18/2021 18:42:19 [id number] _ATHENA_M IGRATION_ DEFAULT_1 _1 , 07/26/2021 00:00:00 07/26/2021 11:37:17 [id number] [facility] [address] [place], [place] [address]., [address] [address] 10/08/2021 00:00:00 10/09/2021 16:06:22 [id number] [facility] [address] [place], [place] [address]., [address] [address] 01/02/2022 00:00:00 01/02/2022 11:58:34 [id number] [facility] [address] [place], [place] [address]., [address] [address] 07/01/2022 00:00:00 07/01/2022 15:18:59 [id number] Francisco king MD [facility] [address] [place], [place] [address]., [address] [address] 11/11/2022 10:29:31 11/11/2022 11:21:05 Screening - NAD [id number] Z13.9 C-scope: cologuard negative 12/15/2019 EGD: 01/01/2021 : Dr Cardona Mammogram: 12/13/2019 : NegMammogr am: 10/31/2021 : Neg DEXA: 12/13/2019 : Osteopenia can do OTC ca and vit dDEXA: 01/16/2022 : OP on prolia PAP: 12/12/2019 : Paula Townsend MEDIA CONSULTANT, does well now 07/01/2022 Get yearly flu shotPrevna r 13 06/04/18, get #23 06/18/2021 Get Tdap and shingles vaccine if not doneUTD COVID 19 vaccine RTC in 4 monthsDo labsER if worseShe and her Hakan and Liyah did verbalize her understand ing of the above Vertigo 897256508 R42 On meclizineM uch improved with PT at [facility] as per her daughter Prediabetes 600706933 R7 3.03 On metformin ER 500mg bidGet labs Hyperlipidemia 16979982 E78.5 On lovastatin 40mg dailyGet labs Gastroesop hageal reflux disease without esophagitis 732943836 K21.9 On omeprazole 20mg daily Does wellS/p EGD 01/01/2021 : gastritis, Dr Cardona Vitamin D deficiency 347 23932 E55.9 Get labs Generalize d anxiety disorder 82913023 F41.1 On alprazolam Does wellNot suicidal or homicidal Environmental allergy 42 8031279 T78.49XD On flonaseOn claritin Does well on this Visual impairment 997626 003 H54.7 Wants to see an eye MDReferred Proteinuria 67161133 R80 .[address] Junior Liver enzy mes level above reference range 216562924 R74.01 US liver 10/31/2021 : NegGGT elevated, advised to stop all alcoholLFT s WNL 10/27/2022 Screening mammography 24 750962 Z12.31 Essential hypertension 18101244 I10 On coreg 6.25mg bid will decrease to 3.125mg bid as she feels that the BP is low on some daysKeep BP log and bring in 2 weeksAlso get an US carotid as per her daughter's request and get a referral to Dr Pendleton well Gynecologi c examination 46125178 Z01.534 [id number] Francisco king MD [facility] [address] [facility], [facility] [address] [place] [address] 04/14/2023 10:07:40 04/14/2023 10:36:47 Screening - NAD 281809759 Z13.9 C-scope: cologuard negative 12/15/2019 EGD: 01/01/2021 : Dr Cardona Mammogram: 12/13/2019 : NegMammogr am: 10/31/2021 : NegMammogr am: 11/17/2022 : Neg DEXA: 12/13/2019 : Osteopenia can do OTC ca and vit dDEXA: 01/16/2022 : OP on prolia PAP: 12/12/2019 : 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 Townsend 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, does well now 07/01/2022 Get yearly flu shotPrevna r 13 06/04/18, get #23 06/18/2021 Get Tdap and shingles vaccine if not doneUTD COVID 19 vaccineCan do RSV vaccine RTC in 6 monthsDo labsER if worseShe and her Hakan and Liyah did verbalize her understand ing of the above Vertigo 081744314 R42 On meclizineM uch improved with PT at [facility] as per her daughter Prediabetes 511564458 R7 3.03 On metformin ER 500mg bidGet labs Hyperlipidemia 39983144 E78.5 On lovastatin 40mg dailyGet labs Gastroesop hageal reflux disease without esophagitis 042631653 K21.9 On omeprazole 20mg daily, take PRN Does wellS/p EGD 01/01/2021 : gastritis, Dr Cardona Vitamin D deficiency 347 24644 E55.9 Get labs Generalize d anxiety disorder 81611429 F41.1 On alprazolam Does wellNot suicidal or homicidal Environmental allergy 42 4517502 T78.49XD On flonaseOn claritin Does well on this Visual impairment 294651 003 H54.7 Wants to see an eye MDReferred Proteinuria 90827977 R80 .9 On calcitriol On vit d weeklySees Dr Junior Liver enzy mes level above reference range 711391175 R74.01 US liver 10/31/2021 : NegGGT elevated, advised to stop all alcoholLFT s WNL 10/27/2022 Essential hypertension 57034102 I10 On coreg 6.25mg bid will decrease to 3.125mg bidDoes well US carotid 01/21/2023 ECHO: 01/21/2023 : EF 60% Gynecologi c examination 34578627 Z01.867 [id number] Francisco king MD [facility] [address] [facility], [address] [place] [address] 10/13/2023 10:12:23 10/13/2023 11:22:22 Adult health examination 963615354 Z00.00 Screening for disorder 939507135 Z13.9 Screening - NAD 84274010 3 Z13.9 C-scope: cologuard negative 12/15/2019 EGD: 01/01/2021 : Dr Cardona Mammogram: 12/13/2019 : NegMammogr am: 10/31/2021 : NegMammogr am: 11/17/2022 : Neg DEXA: 12/13/2019 : Osteopenia can do OTC ca and vit dDEXA: 01/16/2022 : OP on prolia PAP: 12/12/2019 : Paula Townsend MEDIA CONSULTANT, does well now 07/01/2022 Get yearly flu shotPrevna r 13 06/04/18, get #23 06/18/2021 Get Tdap and shingles vaccine if not doneUTD COVID 19 vaccineCan do RSV vaccine RTC in 6 monthsDo labsER if worseShe and her Jamarcus did verbalize her understand ing of the above Vertigo 318774227 R42 On meclizineM uch improved with PT at [facility] as per her daughter Prediabetes 430211143 R7 3.03 On metformin ER 500mg bidGet labs Hyperlipidemia 90204427 E78.5 On lovastatin 40mg dailyGet labs Gastroesop hageal reflux disease without esophagitis 088215031 K21.9 On omeprazole 20mg daily, take PRN Does wellS/p EGD 01/01/2021 : gastritis, Dr Cardona Vitamin D deficiency 347 53071 E55.9 Get labs Generalize d anxiety disorder 74271747 F41.1 On alprazolam Does wellNot suicidal or homicidal Environmental allergy 42 6205192 T78.49XD On flonaseOn claritin Does well on this Visual impairment 907144 003 H54.7 Wants to see an eye MDReferred Proteinuria 50982923 R80 .9 On calcitriol On vit d weeklySees Dr Junior Liver enzy mes level above reference range 216530537 R74.01 US liver 10/31/2021 : NegGGT elevated, advised to stop all alcoholLFT s WNL 10/27/2022 Essential hypertension 92859632 I10 On coreg 6.25mg bid will decrease to 3.125mg bidDoes well US carotid 01/21/2023 ECHO: 01/21/2023 : EF 60% Gynecologi c examination 13119891 Z01.392 [id number] Francisco king MD [facility] [address] [facility], [address] [place] [address] 02/09/2024 10:11:55 02/09/2024 10:56:30 Prediabetes 373327019 R73.03 On metformin ER 500mg bidGet labs Screening - NAD 45986070 3 Z13.9 C-scope: cologuard negative 12/15/2019 EGD: 01/01/2021 : Dr Cardona Mammogram: 12/13/2019 : NegMammogr am: 10/31/2021 : NegMammogr am: 11/17/2022 : Neg DEXA: 12/13/2019 : Osteopenia can do OTC ca and vit dDEXA: 01/16/2022 : OP on prolia PAP: 12/12/2019 : Paula Townsend MEDIA CONSULTANT, does well now 07/01/2022 Get yearly flu shotPrevna r 13 06/04/18, get #23 06/18/2021 Get Tdap and shingles vaccine if not doneUTD COVID 19 vaccineCan do RSV vaccine RTC in 6 monthsDo labsER if worseShe and her Hakan did verbalize her understand ing of the above Vertigo 395207617 R42 On meclizineM uch improved with PT at [facility] as per her daughter Hyperlipidemia 73730384 E78.5 On lovastatin 40mg dailyGet labs Gastroesop hageal reflux disease without esophagitis 792848149 K21.9 On omeprazole 20mg daily, take PRN Does wellS/p EGD 01/01/2021 : gastritis, Dr Cardona Vitamin D deficiency 347 82559 E55.9 Get labs Generalize d anxiety disorder 79498619 F41.1 On alprazolam , renewed as per her request 02/09/2024 Does wellNot suicidal or homicidal Environmental allergy 42 6730004 T78.49XD On flonaseOn claritin Does well on this Visual impairment 119582 003 H54.7 Wants to see an eye MDReferred Proteinuria 60686092 R80 .9 On calcitriol On vit d weeklySees Dr Junior Liver enzy mes level above reference range 977174273 R74.01 US liver 10/31/2021 : NegGGT elevated, advised to stop all alcoholDec lined any US liver 02/09/2024 Essential hypertension 76817361 I10 On coreg 6.25mg bid will decrease to 3.125mg bidDoes well US carotid 01/21/2023 ECHO: 01/21/2023 : EF 60% Gynecologi c examination 75561358 Z01.419 Screening mammography 24 726338 Z12.31 Screening for osteoporosis 471230682 Z13.820 Administra tion of influenza vaccine 06419750 Z23 [id number] Francisco king MD [facility] [address] [facility], [facility] [address] [place] [address] 06/14/2024 10:01:03 06/14/2024 11:05:47 Prediabetes 388550830 R73.03 On metformin ER 500mg bidGet labs Screening - NAD 09006466 3 Z13.9 C-scope: cologuard negative 12/15/2019 EGD: 01/01/2021 : Dr Cardona Mammogram: 12/13/2019 : NegMammogr am: 10/31/2021 : NegMammogr am: 11/17/2022 : Neg DEXA: 12/13/2019 : Osteopenia can do OTC ca and vit dDEXA: 01/16/2022 : OP on prolia PAP: 12/12/2019 : 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 Townsend 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, does well now 07/01/2022 Get yearly flu shotPrevna r 13 06/04/18, get #23 06/18/2021 Get Tdap and shingles vaccine if not doneUTD COVID 19 vaccineCan do RSV vaccine RTC in 4 monthsDo labsER if worseShe and her Hakan did verbalize her understand ing of the above, also did d/w her daughter over the telephone today 06/14/2024 Vertigo 391843451 R42 On meclizineM uch improved with PT at [facility] as per her daughter Hyperlipidemia 35332689 E78.5 On lovastatin 40mg dailyGet labs Gastroesop hageal reflux disease without esophagitis 268083221 K21.9 On omeprazole 20mg daily, take PRN Does wellS/p EGD 01/01/2021 : gastritis, Dr Cardona Vitamin D deficiency 347 26215 E55.9 Get labs Generalize d anxiety disorder 32493750 F41.1 On alprazolam , renewed as per her request 02/09/2024 Does wellNot suicidal or homicidal Environmental allergy 42 7272114 T78.49XD On flonaseOn claritin Does well on this Visual impairment 051472 003 H54.7 Sees her eye Proteinuria 89447397 R80 .9 On calcitriol On vit d weeklySees Dr Junior Liver enzy mes level above reference range 158813826 R74.01 US liver 10/31/2021 : NegGGT elevated, advised to stop all alcoholDec lined any US liver 02/09/2024 Essential hypertension 34631972 I10 On coreg 6.25mg bid will decrease to 3.125mg bidDoes well US carotid 01/21/2023 ECHO: 01/21/2023 : EF 60% Gynecologi c examination 30860432 Z01.419 Screening mammography 24 282518 Z12.31 Screening for osteoporosis 535894674 Z13.820 Health Concerns Section Related Observation LastModified by Organization Detai ls LastModified Time None Recorded Concern Status LastModified by Organization Details LastModified Time None Recorded Advance Directives Directive N: Payers Encounter Date Sequence Insurance Name Policy Number Policy Rosen Covered Member ID Rosen Member ID Guarantor Name 11/11/2022 1 [employer] [employer] [employer] [place]IG[place] (MEDICARE REPLACEMENT/A DVANTAGE - HMO) [id number] [facility] [id number] [employer] Barragana 04/14/2023 1 [facility] [employer] [employer] [place] - [place]IG[place] (MEDICARE REPLACEMENT/A DVANTAGE - HMO) [id number] [employer] Barragana [id number] Silver[employer]aci Barragana 10/13/2023 1 [facility] (MEDICARE REPLAC[facility]/A DVANTAGE - PPO) [id number] [id number] [facility] 02/09/2024 1 [facility] (MEDICARE REPLACEMENT/A DVANTAGE - PPO) [id number] [address] Femigieva [id number] [facility] 06/14/2024 1 [facility] (MEDICARE REPLACEMENT/A DVANTAGE - PPO) [id number] [employer] Kahngieva [id number] [facility] Notes Date Note Type Note Provider Name and Address Organization Details Recorded Time 11/11/2022 text/html OV 12/06/2019:He re to establish careHere with her daughter Bambi Hx:HTNHLDGERDReview ed social family and surgical history She is a poor historian as she does not speak Nepalese well and the history is supplemented by her daughterFeels well todayNeeds to discuss the above and get labsShe would also like a referral for eye glassesOV 03/14/2020:Here for her routine aptShe feels very wellShe did do the labsHer daughter Liyah is here with herOV 07/24/2020:Here for her routine aptShe states that she is doing very wellShe did do the xrays of the c-spine and is now doing wellShe would like to get a refill on the xanax as Dr Patrick gave this to her for palpitations, states that her makes her anxiousShe still has neck pain but the meloxicam helps, but it returns once she stops it, no N/T or weakness of the gripOV 11/20/2020:Here for her routine aptShe is doing wellShe is here with her daughter Liyah OV 02/19/2021:Here for her routine aptShe is doing wellShe is here for her MWV alsoShe is here with her husbandOV 06/18/2021:Here for her routine aptShe is doing wellShe did do the labsOV 10/08/2021:Here for her routine apt, she is here with her daughterShe has done the labsWas c/o UTI sx with dysuria, no fevers or chills, feels a burning when urinatingNo LBPOV 01/02/2022:Here for her apt with her , she is doing well, and has done labs on 2OV 07/01/2022:Here for her f/u apt, she is here with her and is doing well, she did do the labs on 05/21/2022, here for her MWV also OV 11/11/2022: Here for her f/u apt, she is doing well today, she did do the labs on 10/27/2022, here with her Francisco Nowak MD [address] [place] [address], [facility] [address], [place], [address], [facility] [employer] 11/11/2022 11:21:51 04/14/2023 text/html OV 12/06/2019:He re to establish careHere with her daughter Bambi Hx:HTNHLDGERDReview ed social family and surgical history She is a poor historian as she does not speak Nepalese well and the history is supplemented by her daughterFeels well todayNeeds to discuss the above and get labsShe would also like a referral for eye glassesOV 03/14/2020:Here for her routine aptShe feels very wellShe did do the labsHer daughter Liyah is here with herOV 07/24/2020:Here for her routine aptShe states that she is doing very wellShe did do the xrays of the c-spine and is now doing wellShe would like to get a refill on the xanax as Dr Patrick gave this to her for palpitations, states that her makes her anxiousShe still has neck pain but the meloxicam helps, but it returns once she stops it, no N/T or weakness of the gripOV 11/20/2020:Here for her routine aptShe is doing wellShe is here with her daughter Liyah OV 02/19/2021:Here for her routine aptShe is doing wellShe is here for her MWV alsoShe is here with her husbandOV 06/18/2021:Here for her routine aptShe is doing wellShe did do the labsOV 10/08/2021:Here for her routine apt, she is here with her daughterShe has done the labsWas c/o UTI sx with dysuria, no fevers or chills, feels a burning when urinatingNo LBPOV 01/02/2022:Here for her apt with her , she is doing well, and has done labs on 2OV 07/01/2022:Here for her f/u apt, she is here with her and is doing well, she did do the labs on 05/21/2022, here for her MWV also OV 11/11/2022: Here for her f/u apt, she is doing well today, she did do the labs on 10/27/2022, here with her OV 04/14/2023: Here for her routine apt, she is doing very well today, here with her Francisco Nowak MD [address] [place] [address], [place] [address], [place], [address], [facility] 04/14/2023 10:41:16 10/13/2023 text/html OV 12/06/2019:[facility] daughter Bambi Hx:HTNHLDGERDReview ed social family and surgical history She is a poor historian as she does not speak Nepalese well and the history is supplemented by her daughterFeels well todayNeeds to discuss the above and get labsShe would also like a referral for eye glassesOV 03/14/2020:Here for her routine aptShe feels very wellShe did do the labsHer daughter Liyah is here with herOV 07/24/2020:Here for her routine aptShe states that she is doing very wellShe did do the xrays of the c-spine and is now doing wellShe would like to get a refill on the xanax as Dr Celina gave this to her for palpitations, states that her makes her anxiousShe still has neck pain but the meloxicam helps, but it returns once she stops it, no N/T or weakness of the gripOV 11/20/2020:Here for her routine aptShe is doing wellShe is here with her daughter Liyah OV 02/19/2021:Here for her routine aptShe is doing wellShe is here for her MWV alsoShe is here with her husbandOV 06/18/2021:Here for her routine aptShe is doing wellShe did do the labsOV 10/08/2021:Here for her routine apt, she is here with her daughterShe has done the labsWas c/o UTI sx with dysuria, no fevers or chills, feels a burning when urinatingNo LBPOV 01/02/2022:Here for her apt with her , she is doing well, and has done labs on 2OV 07/01/2022:Here for her f/u apt, she is here with her and is doing well, she did do the labs on 05/21/2022, here for her MWV also OV 11/11/2022: Here for her f/u apt, she is doing well today, she did do the labs on 10/27/2022, here with her OV 04/14/2023: Here for her routine apt, she is doing very well today, here with her OV 10/13/2023: Here for her f/u apt, she feels well today, here with her and it to get a MWV also Francisco Nowak MD [address] [facility], [facility] [address], [place], [address], [place] [facility] 10/19/2023 17:28:57 02/09/2024 text/html OV 12/06/2019:He re to establish careHere with her daughter Bambi Hx:HTNHLDGERDReview ed social family and surgical history She is a poor historian as she does not speak Nepalese well and the history is supplemented by her daughterFeels well todayNeeds to discuss the above and get labsShe would also like a referral for eye glassesOV 03/14/2020:Here for her routine aptShe feels very wellShe did do the labsHer daughter Liyah is here with herOV 07/24/2020:Here for her routine aptShe states that she is doing very wellShe did do the xrays of the c-spine and is now doing wellShe would like to get a refill on the xanax as Dr Patrick gave this to her for palpitations, states that her makes her anxiousShe still has neck pain but the meloxicam helps, but it returns once she stops it, no N/T or weakness of the gripOV 11/20/2020:Here for her routine aptShe is doing wellShe is here with her daughter Liyah OV 02/19/2021:Here for her routine aptShe is doing wellShe is here for her MWV alsoBerenice is here with her husbandOV 06/18/2021:Here for her routine aptShe is doing wellShe did do the labsOV 10/08/2021:Here for her routine apt, she is here with her daughterShe has done the labsWas c/o UTI sx with dysuria, no fevers or chills, feels a burning when urinatingNo LBPOV 01/02/2022:Here for her apt with her , she is doing well, and has done labs on 2OV 07/01/2022:Here for her f/u apt, she is here with her and is doing well, she did do the labs on 05/21/2022, here for her MWV also OV 11/11/2022: Here for her f/u apt, she is doing well today, she did do the labs on 10/27/2022, here with her OV 04/14/2023: Here for her routine apt, she is doing very well today, here with her OV 10/13/2023: Here for her f/u apt, she feels well today, here with her and it to get a MWV also OV 02/09/2024: Here for her f/u apt, she is doing very well, she is here with her and daughter, she would like to get a refill for her alprazolam, she did do the labs with Dr Vernon Nowak MD [address], [address], [place], [address], [place] [facility] 02/09/2024 11:10:39 06/14/2024 text/html OV 12/06/2019:He re to establish careHere with her daughter Bambi Hx:HTNHLDGERDReview ed social family and surgical history She is a poor historian as she does not speak Nepalese well and the history is supplemented by her daughterFeels well todayNeeds to discuss the above and get labsShe would also like a referral for eye glassesOV 03/14/2020:Here for her routine aptShe feels very wellShe did do the labsHer daughter Liyah is here with herOV 07/24/2020:Here for her routine aptShe states that she is doing very wellShe did do the xrays of the c-spine and is now doing wellShe would like to get a refill on the xanax as Dr Patrick gave this to her for palpitations, states that her makes her anxiousShe still has neck pain but the meloxicam helps, but it returns once she stops it, no N/T or weakness of the gripOV 11/20/2020:Here for her routine aptShe is doing wellShe is here with her daughter Liyah OV 02/19/2021:Here for her routine aptShe is doing wellShe is here for her MWV alsoShe is here with her husbandOV 06/18/2021:Here for her routine aptShe is doing wellShe did do the labsOV 10/08/2021:Here for her routine apt, she is here with her daughterShe has done the labsWas c/o UTI sx with dysuria, no fevers or chills, feels a burning when urinatingNo LBPOV 01/02/2022:Here for her apt with her , she is doing well, and has done labs on 2OV 07/01/2022:Here for her f/u apt, she is here with her and is doing well, she did do the labs on 05/21/2022, here for her MWV also OV 11/11/2022: Here for her f/u apt, she is doing well today, she did do the labs on 10/27/2022, here with her OV 04/14/2023: Here for her routine apt, she is doing very well today, here with her OV 10/13/2023: Here for her f/u apt, she feels well today, here with her and it to get a MWV also OV 02/09/2024: Here for her f/u apt, she is doing very well, she is here with her and daughter, she would like to get a refill for her alprazolam, she did do the labs with Dr Vernon DALTON OV 06/14/2024: Here for her f/u apt, she is here with her , now is doing well today Francisco Nowak MD [address] [place] [address], [facility] [address], [place], [address], [place] [facility] 06/14/2024 16:29:23 OBGyn Episode No OBEpisode recorded.
--- OUTSIDE RECORDS SUMMARY | 2024-07-12 17:00 | XMS_ITS | Clinical Summary ---
Author Organization [facility] Upstream Address [address] [place] [address] Care Team Providers Care Boom Stick Worker Name Role Phone Babak Jimenez MD Primary Care Provider [phone] Source Comments [facility],non-owned Affiliates and Associated Physician Practices is amultiple site organization consisting of ambulatory clinics and hospital sitesin [place], [place], [place] and [place]. This disclosure is being madepursuant to the Care Everywhere program and may not contain all information available regarding this patient. Last updated 18.[facility] Upstream Social History Tobacco Use Types Packs/Day Years Used Date Smoking Tobacco: Never Assessed Sex and Gender Information Value Date Recorded Sex Assigned at Not on file Gender Identity Not on file Sexual Orientation Not on file Plan of Treatment Health Maintenance Due Date Last Done Comments COLOGUARD (AGES 45-75) - COL ON CA SCREENING 1950 COLON MONITORING 1950 COLONOSCOPY - COLON CA SCREENING 1950 CT COLONOGRAPHY - COLON CA SCREENING 1950 Colorectal Cancer Screening 1950 FIT - COLON CA SCREENING 1950 FLEX SIG - COLON CA SCREENING 1950 LIPID TESTING 1950 HEPATITIS C SCREENING 09/17/1970 DTAP/TDAP/TD VACCINES (1 - Tdap) 09/22/1971 PNEUMOCOCCAL VACCINE 50+ (1 of 1 - PCV) 2002 ZOSTER VACCINE (1 of 2) 2002 MAMMOGRAM 06/15/2017 06/15/2015 COVID-19 VACCINE ( - 2023-2 5 season) 2024 INFLUENZA VACCINE (#1) 2024 DEPRESSION SCREENING 05/04/2024 Respiratory Syncytial Virus (RSV) Vaccine Pt: or over 60 yrs (1 - 1-dose 75+ series) 09/22/2027 BONE DENSITY TESTING Completed 06/15/2015 HEPATITIS B VACCINE Aged Out No longe r eligible based on patient's age to complete this topic HIB VACCINE Aged Out No longer eligi ble based on patient's age to complete this topic HPV VACCINE Aged Out No longer eligi ble based on patient's age to complete this topic MENINGOCOCCAL (Group B) VACCINE Aged Out No longer eligible based on patient's age to complete this topic MENINGOCOCCAL VACCINE Aged Out No kale geraldo eligible based on patient's age to complete this topic Procedures Procedure Name Priority Date/Time Associated Diagnosis Comments DEXA BONE DENSITY 2 SITES Routine 06/15/2015 3:09 PM PULP OPERATOR Encounter for screening for osteoporosis MAMMO BILAT SCREENING Routine 06/15/2015 2:50 PM PULP OPERATOR Visit for screening mammogram from Last 3 Months or Most Recently Relevant to Health Maintenance Results * DEXA BONE DENSITY 2 SITES (06/15/2015 3:09 PM PULP OPERATOR) Anatomical Region Laterality Modality Mammography 06/15/2015 3:12 PM PULP OPERATOR Narrative 06/15/2015 3:47 PM PULP OPERATOR BONE MINERAL DENSITY STUDY INDICATION: Osteoporosis screening. [...] DIGITAL IMAGE BILAT [id number] (06/15/2015 2:50 PM PULP OPERATOR) Anatomical Region Laterality Modality Breast Bilateral Mammography 06/15/2015 2:53 PM PULP OPERATOR Narrative 06/15/2015 3:47 PM PULP OPERATOR DIGITAL BILATERAL SCREENING MAMMOGRAMS WITH CAD CORRELATION [...] if suspicious findings are present clinically. An [employer] Certified Facility. [facility] utilize [employer] as a reminder system to notify patients of their next recommended mammograms. Edited by Vanessa Garcia on 06/15/2015 3:29 PM Babak Jimenez MD MAMMO ORDERABLES from Last 3 Months or Most Recently Relevant to Health Maintenance Care Teams Boom Stick Worker Relationship Specialty Start Date End Date Babak Jimenez MD [address] [place] [address] PCP - General Gastroenterology 06/15/15
== END 2024-07-12 14:54 | disposition home or self-care (01) ==
PROVIDERS: Visit Provider Internal Medicine
DX: Z12.31 Encounter for screening mammogram for malignant neoplasm of breast (principal)
CPT/HCPCS: 77063; 77067

== ENCOUNTER 2024-07-29 10:49 | Emergency (ER) | payer MEDICARE, MEDICAID, SELFPAY ==
[2024-07-29 10:57] VITALS: BP 122/70; PULSE 80; RESP 16; TEMP 36.6; O2SAT 99
--- NOTE | 2024-08-01 16:24 | ED_ITS ---
HPI - Skin/Abscess/Foreign Bdy General Chief complaint: Skin/Abscess/Foreign Body Stated complaint: RASH Time Seen by Provider: 07/29/24 10:55 Source: patient Mode of arrival: ambulatory Limitations: no limitations History of Present Illness HPI narrative: 73 yo F presents with poison liseth rash to R cheek, forehead and L forearm. c/o itchy. Started after doing yard work 3 days ago. All systems reviewed and negative except as noted above. Related Data Home Medications ?Medication ?Instructions ?Recorded ?Confirmed ?Last Taken ?Type calcitriol 0.25 mcg capsule 1 mcg PO DAILY 07/29/24 07/29/24 Unknown History carvedilol 3.125 mg tablet 3.125 mg PO DAILY 07/29/24 07/29/24 Unknown History denosumab 60 mg/mL subcutaneous 60 mg subcut [id number] 07/29/24 07/29/24 Unknown History syringe (Prolia) ergocalciferol (vitamin D2) 1,250 1,250 mcg PO MONTHLY 07/29/24 07/29/24 Unknown History mcg (50,000 unit) capsule lovastatin 40 mg tablet 40 mg PO QPM 07/29/24 07/29/24 Unknown History metformin 500 mg tablet,extended 500 mg PO QPM 07/29/24 07/29/24 Unknown History release 24 hr omeprazole 20 mg capsule,delayed 20 mg PO DAILY 07/29/24 07/29/24 Unknown History release Allergies Allergy/AdvReac Type Severity Reaction Status Date / Time No Known Allergies Allergy Verified 07/29/24 10:56 Review of Systems Review of Systems: CONSTITUTIONAL: Denies fever, chills, or sweats. EYES: Denies visual changes, redness, or discharge. ENT: Denies rhinorrhea, congestion, sore throat, or otalgia. CARDIOVASCULAR: Denies chest pain, palpitations, or edema. RESPIRATORY: Denies cough or dyspnea. GASTROINTESTINAL: Denies abdominal pain, nausea, vomiting, or diarrhea. GENITOURINARY: Denies dysuria or hematuria. SKIN: Reports rash and itching. MUSCULOSKELETAL: Denies back pain, joint pain, or myalgia. NEUROLOGIC: Denies headache, numbness, or weakness. PSYCHIATRIC: Denies anxiety or depression. All other systems reviewed are negative, except as documented in HPI. [facility] Comments At time of signature, agree with nursing past medical, surgical, social and family history. There is no relevant family history pertinent to the presenting complaint. Exam Narrative: GENERAL: This is a well-nourished, well-developed patient, in no apparent distress. HEAD: normocephalic, atraumatic. EYES: PERRL. Sclera clear/white. Vision is grossly intact. EARS: External ears normal, NOSE: External nose normal NECK: Neck supple, non-tender without lymphadenopathy, masses or thyromegaly. CARDIOVASCULAR: Regular rate and rhythm without murmurs, gallops, or rubs. RESPIRATORY: Clear to auscultation. Breath sounds equal bilaterally. No wheezes, rales, or rhonchi. SKIN: warm, Dry, intact, good texture and turgor. erythematous vesicular rash to R cheek, forehead and L wrist. NEURO: awake, alert, and oriented to person, place and time. There were no obvious focal neurologic abnormalities. EXTREMITIES: No joint tenderness, effusion, or edema noted. Course Course Level of Care: Express Care Visit Vital Signs Vital signs: Vital Signs Temperature 36.6 C 07/29/24 10:57 Pulse Rate 80 07/29/24 10:57 Respiratory Rate 16 07/29/24 10:57 Blood Pressure 122/70 07/29/24 10:57 Pulse Oximetry 99 07/29/24 10:57 Temperature 36.6 C 07/29/24 10:57 Pulse Rate 80 07/29/24 10:57 Respiratory Rate 16 07/29/24 10:57 Blood Pressure 122/70 07/29/24 10:57 Pulse Oximetry 99 07/29/24 10:57 reviewed MDM - Skin/Abscess/Foreign Bdy MDM Narrative Medical decision making narrative: Please be advised this is a medical document. It is intended for [id number] communication. It is written in medical language and may contain unfamiliar abbreviations or verbiage. Medical documents are intended to carry relevant information, facts as evident, and the clinical opinion of the practitioner at the time of the encounter. This report may have been done utilizing a voice recognition system. Attempts have been made to correct errors. However, there may be uncorrected grammatical, spelling, and recognition errors present. The file time of this note does not necessarily represent the time of service. Differential Diagnosis Differential diagnosis: Likely contact dermatitis Discharge Plan Discharge Clinical Impression: Dermatitis due to plants, including poison liseth, sumac, and oak Patient Disposition: Home, Self-Care Condition: Stable Instructions: Poison Liseth (ED) Additional Instructions: Take medication as prescribed. Apply steroid cream sparingly to affected area. Avoid eyes. Take an over the counter antihistamine such as Zyrtec or Benadryl, take as directed on package. Patient Language: Yoruba Prescriptions: New triamcinolone acetonide 0.1 % cream 1 applic topical BID Qty: 30 0RF prednisone 10 mg tablets,dose pack See Taper PO DAILY 12 Days Qty: 42 0RF Taper: Prednisone Taper from 60 mg;12 days 60 mg DAILY for 2 Days and 0 Hour 50 mg DAILY for 2 Days and 0 Hour 40 mg DAILY for 2 Days and 0 Hour 30 mg DAILY for 2 Days and 0 Hour 20 mg DAILY for 2 Days and 0 Hour 10 mg DAILY for 2 Days and 0 Hour No Action carvedilol 3.125 mg tablet 3.125 mg PO DAILY lovastatin 40 mg tablet 40 mg PO QPM metformin 500 mg tablet extended release 24 hr 500 mg PO QPM omeprazole 20 mg capsule,delayed release(DR/EC) 20 mg PO DAILY ergocalciferol (vitamin D2) 1,250 mcg (50,000 unit) capsule 1,250 mcg PO MONTHLY Prolia 60 mg/mL syringe 60 mg SUBCUT [id number] calcitriol 0.25 mcg capsule 1 mcg PO DAILY Follow-up/Referrals: She,MD Francisco [Primary Care Provider] - Time of Disposition: 11:08
== END 2024-07-29 11:20 | disposition home or self-care (01) ==
PROVIDERS: Emergency Provider Nurse Practitioner Family; PCP Internal Medicine
DX: L25.5 Unspecified contact dermatitis due to plants, except food (principal); N18.1 Chronic kidney disease, stage 1; E78.00 Pure hypercholesterolemia, unspecified; R73.03 Prediabetes; Z86.73 Personal history of transient ischemic attack (TIA), and cerebral infarction without residual deficits
CPT/HCPCS: 99213; G0463

== ENCOUNTER 2024-10-11 11:48 | Outpatient (CLI) | payer MEDICARE, MEDICAID, SELFPAY ==
--- NOTE | ~2024-10-11 | US_ITS ---
Renal-Bladder ultrasound Clinical History: Chronic kidney disease Technique: Real-time sonographic imaging of the kidneys and urinary bladder was performed. Findings: The right kidney measures 9.5 cm in length and the left kidney measures 10.0 cm. There is n o hydronephrosis or renal calculus identified. Renal cortical echogenicity is within normal limits. N o renal mass lesion is identified. The urinary bladder is moderately distended at the time of this exam. No intraluminal echoes are iden tified. No abnormal wall thickening is seen. Impression: Unremarkable ultrasound of the kidneys and urinary bladder. Reviewed, dictated and finalized at location . Impression: Unremarkable ultrasound of the kidneys and urinary bladder.
== END 2024-10-11 11:49 | disposition home or self-care (01) ==
LOC: MICIMG 11:49
PROVIDERS: PCP Internal Medicine; Visit Provider Specialist
DX: N18.2 Chronic kidney disease, stage 2 (mild) (principal)
CPT/HCPCS: 76770

== ENCOUNTER 2024-10-26 09:56 | Outpatient (CLI) | payer MEDICARE, MEDICAID, SELFPAY ==
--- NOTE | ~2024-10-26 | DEXA_ITS ---
Bone Density Report Name: JOHN ARCINIEGA Age: 74 Sex: Female Ethnicity: White Date of : 1950 Indication: postmenopausal; screening for osteoporosis; Referring Provider: [email or web address] Study: Bone densitometry was performed. Exam Date: October 26, 2024 Accession number: [id number] Bone Density: Region BMD T-score Z-score Classification AP Spine(L2, L3, L4) 0.833 -2.2 0.1 Osteopenia Femoral Neck (Left) 0.504 -3.1 -1.2 Osteoporosis Total Hip (Left) 0.793 -1.2 0.4 Osteopenia Femoral Neck (Right) 0.571 -2.5 -0.6 Osteoporosis Total Hip (Right) 0.799 -1.2 0.4 Osteopenia Total Hip Mean 0.796 -1.2 0.4 Osteopenia World Health Organization criteria for BMD impression classify patients as: Normal (T-score at or above -1.0), Osteopenia (T-score between -1.0 and -2.5), or Osteoporosis (T-score at or below -2.5). 10-year Fracture Risk: FRAX not reported because: Some T-score for Spine Total or Hip Total or Femoral Neck at or below -2.5 Clinical Information Provided by Patient: Has used the following medications: Prolia (i.e. denosumab), Vitamin D, Calcium Patient maximum height was 60 Menopause Age: 52 No regular weight bearing exercise Drinks caffeinated beverages Onset of menses at age 15 Number of children 2 Impression: The patient has osteoporosis, based on the Left Femoral Neck T-score. Discussion: INCREASED RISK OF FRACTURE. BONE DENSITY IS UNDESIRABLY LOW AT ONE OR MORE SKELETAL SITES, CONSISTENT WITH POSTMENOPAUSAL OSTEOPOROSIS. This patient's lowest T-score meets the World Health Organization's (WHO) criteria for osteoporosis at one or more sites (T-score -2.5 or below). In untreated patients, the risk of osteoporotic fracture increases approximately two-fold for each 1.0 SD decrease in T-score. Low bone density is not the only risk factor for fracture; also consider factors such as patient's age, frailty or poor health, risk of falling, risk of injury, previous osteoporotic fracture, family history of osteoporosis, cigarette smoking, low body weight, etc. Not everyone with low bone mineral density has osteoporosis; osteomalacia and other metabolic bone disorders should also be considered. Patients who have osteoporosis should be evaluated for specific diseases and conditions (secondary causes) that may cause or contribute to bone loss. The [place] [employer] (AACE) and National Osteoporosis Foundation (NOF) recommend pharmacologic intervention for all postmenopausal women whose T-score is in this range. The patient should follow a healthful lifestyle (good nutrition with adequate calcium and vitamin D, and appropriate weight-bearing exercise). Follow-Up: Consider a repeat BMD and Vertebral Fracture Assessment (VFA) exam in 2 years or sooner if medically necessary, to reassess this patient's status. Reported by: ZARI on 10/26/2024 10:33:00 AM. Reviewed, dictated and finalized at location A.
== END 2024-10-26 09:57 | disposition home or self-care (01) ==
LOC: ANHIMG 09:56
PROVIDERS: PCP Internal Medicine; Visit Provider Internal Medicine
DX: M81.0 Age-related osteoporosis without current pathological fracture (principal); M85.89 Other specified disorders of bone density and structure, multiple sites
CPT/HCPCS: 77080

== ENCOUNTER 2024-11-17 12:26 | Outpatient (CLI) | payer MEDICARE, MEDICAID, SELFPAY ==
--- NOTE | ~2024-11-17 | XR_ITS ---
Lumbosacral Spine: AP and lateral views Clinical History: Pain Findings: The normal lordotic curve is maintained. There is 16 mm anterolisthesis of L5 over S1. Ques tionable L5 pars interarticularis defects. There is severe degenerative disc narrowing at L5-S1. Ther e is severe facet arthropathy at the lower lumbar spine.. The sacroiliac joints are normally outline d. Impression: 16 mm anterolisthesis of L5 over S1, with suspected bilateral L5 pars interarticularis defects. Degenerative spondylosis, particularly at the lower lumbar spine, as above. Reviewed, dictated and finalized at location M. Impression: 16 mm anterolisthesis of L5 over S1, with suspected bilateral L5 pars interarti cularis defects. Degenerative spondylosis, particularly at the lower lumbar spine, as above.
== END 2024-11-17 12:27 | disposition home or self-care (01) ==
LOC: MICIMG 12:27
PROVIDERS: PCP Internal Medicine; Visit Provider Internal Medicine
DX: M54.50 Low back pain, unspecified (principal); G89.29 Other chronic pain; M43.06 Spondylolysis, lumbar region
CPT/HCPCS: 72100